=== PATIENT | male | born 1940 | race Caucasian/White ===

== ENCOUNTER → 2016-12-30 13:46 | Outpatient (CLI) | payer MEDICARE, MEDICAID, SELFPAY ==
--- NOTE | 2016-12-30 13:59 | CT_ITS ---
STUDY: CTA CHEST REASON FOR EXAM: Male, 76 years old. Shortness of breath. History of prior pulmonary embolism. RADIATION DOSAGE (If Supplied By Facility): CTDIvol = ( 19.78 ) mGy, DLP = ( 700.99 ) mGycm TECHNIQUE: The examination was performed with the intravenous administration of 100 ml of Isovue 370 contrast material. Post-processing of the angiographic images was performed, with multiplanar reformation and 3D reconstruction. Individualized dose optimization techniques were used for this CT. COMPARISON: Comparison is made with prior study dated November 02, 2015. FINDINGS: Normal enhancement of the main pulmonary artery and right and left pulmonary arteries. Normal enhancement of the bilateral peripheral pulmonary arteries. There is no demonstrated pulmonary embolism. The previously seen pulmonary emboli after resolved. There is atherosclerotic calcification of the aortic arch with tortuosity. There is no demonstrated aortic dissection. Sternal cerclage wires and vascular clips are present from a prior sternotomy and coronary artery bypass graft procedure (CABG). There are calcifications of the coronary arteries. There are visualized mediastinal lymph nodes, which are within normal size limits, and with normal morphology. Normal hilar regions. Normal visualized trachea and bronchi. The lungs are well expanded. Mild increased linear markings of the lung bases suggestive of scarring. Normal pleura. Normal chest wall structures. There are degenerative changes of thoracic spine. Normal visualized upper abdomen. CT/CTA Chest W/WO Contrast IMPRESSION: No acute abnormality is seen. Electronically Signed: Alfonso Sarah MD at 15:01 EST Tel [phone], Service support ,
== END | disposition home or self-care (01) ==
PROVIDERS: Family Provider Family Medicine Geriatric Medicine; PCP Family Medicine Geriatric Medicine; Visit Provider Family Medicine Geriatric Medicine
DX: R06.02 Shortness of breath (principal); I26.99 Other pulmonary embolism without acute cor pulmonale; R07.9 Chest pain, unspecified; R10.9 Unspecified abdominal pain
CPT/HCPCS: 71275; 36415; 80053; 82550; 83874; 84484; 85025; Q9967; A4216

== ENCOUNTER → 2017-05-19 16:02 | Outpatient (CLI) | payer MEDICARE, MEDICAID, SELFPAY ==
[2017-05-19 16:48] LABS: Absolute Lymphocyte Count 1.86 X10^3/ul (0.83-4.51); Basophil# 0.01 X10^3/uL; Basophil% 0.2 % (0-1); Eosinophil# 0.09 X10^3/uL; Eosinophils% 1.6 % (0-5); Hematocrit 37.2 % (40-54); Lymphocyte # 1.86 X10^3/ul (4.0); Lymphocyte % 33.5 % (19-41); Mean Corp Hgb Conc 34.9 g/gl (32-36); Mean Corpuscular Hgb 33.1 pg (27.0-32.0); Mean Corpuscular Volume 94.7 fL (80-94); Monocyte# 0.63 X10^3/uL; Monocyte% 11.3 % (0-10); Neutrophil # 2.96 X10^3/uL (2.7-7.7); Neutrophil % 53.2 % (47-70); Platelet Count 146 K/mm3 (150-450); RBC Distribution Width CV 12.8 % (11.6-14.6); Red Blood Count 3.93 M/mm3 (4.6-6.2); White Blood Count 5.6 K/mm3 (4.4-11.0)
[2017-05-19 16:53] LABS: POSITIVE COUNT NO; POSITIVE DIFFERENTIAL NO; POSITIVE MORPHOLOGY NO
[2017-05-19 17:17] LABS: ALB/GLOB Ratio 1.2 RATIO (0.9-2.4); AST(SGOT) 25 U/L (15-37); Alanine Aminotransfer ALT/SGPT 23 U/L (16-61); Albumin, Serum 3.7 g/dL (3.2-5.0); Alkaline Phosphatase 25 U/L (45-117); Anion Gap 10 (5-15); BUN 16 mg/dL (7-18); BUN/Creat Ratio 11.9 RATIO (10-20); Calcium,Total 8.9 mg/dL (8.5-10.1); Chloride 96 mmol/L (98-107); Creatinine, Serum 1.34 mg/dL (0.70-1.30); EST Glomerular Filtration Rate 55 mL/min (>60); Est Glom Filt Rate - Afr Amer 67 mL/min (>60); Globulin 3.2 g/dL (2.2-4.2); Glucose 88 mg/dL (74-106); Potassium 4.4 mmol/L (3.5-5.1); Protein, Total 6.9 g/dL (6.4-8.2); Sodium Level 131 mmol/L (136-145); Thyroid Stim Hormone (TSH) 1.08 uIU/mL (0.358-3.74); Uric Acid 4.7 mg/dL (3.5-7.2)
[2017-05-20 08:16] LABS: Vitamin D,25 Hydroxy 58.5 ng/mL (29.95-100.01)
== END ==
PROVIDERS: Family Provider Family Medicine Geriatric Medicine; PCP Family Medicine Geriatric Medicine; Visit Provider Family Medicine Geriatric Medicine
DX: E55.9 Vitamin D deficiency, unspecified (principal); I10 Essential (primary) hypertension; M10.9 Gout, unspecified
CPT/HCPCS: 36415; 80053; 82306; 84443; 84550; 85025

== ENCOUNTER → 2017-08-31 15:38 | Outpatient (CLI) | payer MEDICARE, MEDICAID, SELFPAY ==
--- NOTE | 2017-08-31 16:20 | RAD_ITS ---
STUDY: X-RAY CHEST REASON FOR EXAM: Male, 76 years old. Shortness of breath and chest pain. TECHNIQUE: PA and lateral views of the chest. COMPARISON: CTA of the chest, December 10, 2016. Chest, November 02, 2015. FINDINGS: There is an implantable Holter monitor overlying the left heart. There is an improved inspiratory effort. There is patchy densities in the lung bases.. Lungs appear otherwise clear. There are small bilateral pleural effusions. Sternal cerclage wires and vascular clips are present from a prior sternotomy and coronary artery bypass graft procedure (CABG). The heart is borderline enlarged. Normal mediastinum and marisabel. Normal visualized pulmonary arteries. There is atherosclerotic calcification of the aortic arch with tortuosity. Normal visualized thoracic spine. Normal visualized ribs, clavicles, and shoulders. There is no demonstrated abnormality of the visualized soft tissue structures of the upper abdomen. RAD/Chest PA and Lateral IMPRESSION: 1. Small bilateral pleural effusions. There is associated atelectasis versus infiltrate. 2. Borderline cardiomegaly with evidence of CABG procedure. Electronically Signed: Markie Goodrich DO at 20:48 EDT Tel [phone], Service support ,
[2017-08-31 17:09] LABS: Absolute Lymphocyte Count 1.93 X10^3/ul (0.83-4.51); Absolute Neutrophil Count 4.4 X10^3/uL (2.0-7.7); Basophil# 0.01 X10^3/uL; Basophil% 0.1 % (0-1); Eosinophils% 1.4 % (0-5); Hematocrit 36.1 % (40-54); Hemoglobin 12.2 g/dl (13.0-16.5); Lymphocyte # 1.93 X10^3/ul (4.0); Lymphocyte % 26.9 % (19-41); Mean Corp Hgb Conc 33.8 g/gl (32-36); Mean Corpuscular Volume 94.8 fL (80-94); Mean Platelet Vol. 9.6 fl (6.2-12.0); Monocyte% 9.7 % (0-10); Neutrophil # 4.43 X10^3/uL (2.7-7.7); Neutrophil % 61.8 % (47-70); Platelet Count 215 K/mm3 (150-450); RBC Distribution Width CV 13.9 % (11.6-14.6); RBC Distribution Width SD 44.9 fl (35.1-43.9); Red Blood Count 3.81 M/mm3 (4.6-6.2); White Blood Count 7.2 K/mm3 (4.4-11.0)
[2017-08-31 17:35] LABS: ALB/GLOB Ratio 0.9 RATIO (0.9-2.4); AST(SGOT) 16 U/L (15-37); Alanine Aminotransfer ALT/SGPT 23 U/L (16-61); Albumin, Serum 3.5 g/dL (3.2-5.0); Alkaline Phosphatase 34 U/L (45-117); Anion Gap 8 (5-15); BUN 18 mg/dL (7-18); BUN/Creat Ratio 15.4 RATIO (10-20); CPK Total, Creatine Kinase 85 U/L (39-308); Calcium,Total 9.2 mg/dL (8.5-10.1); Chloride 103 mmol/L (98-107); Creatinine, Serum 1.17 mg/dL (0.70-1.30); EST Glomerular Filtration Rate 64 mL/min (>60); Est Glom Filt Rate - Afr Amer 78 mL/min (>60); Glucose 89 mg/dL (74-106); Potassium 4.9 mmol/L (3.5-5.1); Protein, Total 7.5 g/dL (6.4-8.2); Sodium Level 140 mmol/L (136-145); Thyroid Stim Hormone (TSH) 0.86 uIU/mL (0.358-3.74)
[2017-08-31 17:41] LABS: BNP,B-Type NATRIURETIC PEPTIDE 394.4 pg/mL (0-100)
[2017-08-31 18:17] LABS: POSITIVE COUNT NO; POSITIVE DIFFERENTIAL NO; POSITIVE MORPHOLOGY NO
[2017-09-02 11:44] LABS: Myoglobin, Serum 61 ng/mL (28-72)
== END ==
PROVIDERS: Family Provider Family Medicine Geriatric Medicine; PCP Family Medicine Geriatric Medicine; Visit Provider Family Medicine Geriatric Medicine
DX: R06.02 Shortness of breath (principal); I10 Essential (primary) hypertension
CPT/HCPCS: 36415; 71046; 80053; 82550; 83874; 83880; 84443; 84484; 85025

== ENCOUNTER → 2017-09-08 13:31 | Outpatient (CLI) | payer MEDICARE, MEDICAID, SELFPAY ==
--- NOTE | 2017-09-08 13:37 | ECHOD_ITS ---
Reason For Study: SOB Procedure This was a 2D Doppler, Color Flow transthoracic echocardiogram. Technically difficult study. Unable to utilize Definity due to increased pressures. Exam performed in department. Left Ventricle Normal LV size. Moderate segmental systolic dysfunction (see wall motion). The estimated ejection fraction is 30 %. Septal motion consistent with IVCD. Infero-Basal: Hypokinetic. Basal inferoseptal: Hypokinetic. Basal anteroseptal: Hypokinetic. Mid-Anterior : Hypokinetic. Mid- Posterior: Hypokinetic. Mid-Inferior: Hypokinetic. Mid-inferoseptal : Hypokinetic. Mid- anteroseptal : Akinetic. Anterior Nakina : Hypokinetic. Inferior [place] : Hypokinetic. Lateral [place] : Hypokinetic. Septal Nakina : Akinetic. Right Ventricle Normal RV size. Normal systolic function. Atria The left atrium is mildly enlarged. Normal right atrium. No doppler evidence for ASD. Mitral Valve There is no mitral annular calcification. Normal mitral valve. Mild-Moderate (1-2+) mitral valve insufficiency. Tricuspid Valve Normal tricuspid valve. Mild tricuspid valve insufficiency. Right ventricular systolic pressure estimated to be 50 mmHg. Aortic Valve Trisinus/trileaflet aortic valve. Mild diffuse aortic valve thickening. Moderate focal aortic valve calcification. Mild aortic stenosis. Trivial aortic valve insufficiency. Pulmonic Valve The pulmonic valve is not well visualized. Great Vessels The aortic root is not well visualized. Pericardium/Pleural No pericardial effusion. MMode/2D Measurements & Calculations LVIDd: 5.0 cm IVSd: 1.3 cm LVOT diam: 2.0 cm LVIDs: 4.1 cm LVPWd: 0.85 cm LVOT area: 3.1 cm2 FS: 19.4 % Ao root diam: 3.2 cm LAV(MOD-bp): 85.7 ml Aortic Valve Planimetry: 1.1 cm2 ACS: 1.1 cm LAV(MOD-bp) Indexed: 43.9 ml/m2 LA dimension: 4.5 cm LAV(MOD-sp2): 74.8 ml LAV(MOD-sp4): 90.6 ml LA A4 area: 26.0 cm2 RA A4 area: 15.8 cm2 Time Measurements MV dec time: 0.17 sec Doppler Measurements & Calculations MV E max constantino: 122.3 cm/sec Med Peak E' Constantino: 5.2 cm/sec MV V2 max: 100.4 cm/sec MV A max constantino: 51.5 cm/sec E/E' med: 23.4 MV max P.0 mmHg MV E/A: 2.4 MV V2 mean: 54.1 cm/sec MV mean P.4 mmHg MV V2 VTI: 24.4 cm MVA(VTI): 2.4 cm2 MV P1/2t max constantino: 100.4 cm/sec Ao V2 max: 165.2 cm/sec AI max constantino: 387.9 cm/sec MV P1/2t: 85.3 msec Ao max P.0 mmHg AI max P.2 mmHg MV dec slope: 344.6 cm/sec2 Ao V2 mean: 101.4 cm/sec AI dec slope: 260.2 cm/sec2 MVA(P1/2t): 2.6 cm2 Ao mean P.0 mmHg AI P1/2t: 436.7 msec Ao V2 VTI: 31.6 cm CHRISTI(I,D): 1.9 cm2 CHRISTI(V,D): 1.7 cm2 LV V1 max: 90.6 cm/sec SV(LVOT): 59.5 ml PA V2 max: 64.2 cm/sec LV V1 max P.3 mmHg LV V1 mean P.7 mmHg LV V1 mean: 60.3 cm/sec LV V1 VTI: 19.3 cm TR max constantino: 341.0 cm/sec TR max P.5 mmHg Interpretation Summary Moderate segmental systolic dysfunction (see wall motion). The estimated ejection fraction is 30 %. Septal motion consistent with IVCD. The left atrium is mildly enlarged. Mild-Moderate (1-2+) mitral valve insufficiency. Mild tricuspid valve insufficiency. Mild aortic stenosis. Trivial aortic valve insufficiency. Right ventricular systolic pressure estimated to be 50 mmHg. Transmitral diastolic flow velocities suggest diastolic dysfunction (pseudonormal pattern). Comment: 2D echocardiographic images cannot exclude a left ventricular apical thrombus: consider further evaluation with a contrast study if clinically indicated. Ordering Physician: Jaden Farmer Referring Physician: Jaden Farmer Chi Performed By: Issa Mendez RCS
== END ==
PROVIDERS: Family Provider Family Medicine Geriatric Medicine; PCP Family Medicine Geriatric Medicine; Visit Provider Family Medicine Geriatric Medicine
DX: R06.02 Shortness of breath (principal)
CPT/HCPCS: 93306

== ENCOUNTER → 2017-09-15 16:54 | Outpatient (CLI) | payer MEDICARE, MEDICAID, SELFPAY ==
[2017-09-15 18:29] LABS: Anion Gap 8 (5-15); BUN 29 mg/dL (7-18); BUN/Creat Ratio 18.4 RATIO (10-20); Calcium,Total 9.3 mg/dL (8.5-10.1); Chloride 96 mmol/L (98-107); Creatinine, Serum 1.58 mg/dL (0.70-1.30); EST Glomerular Filtration Rate 45 mL/min (>60); Est Glom Filt Rate - Afr Amer 55 mL/min (>60); Glucose 97 mg/dL (74-106); Potassium 4.7 mmol/L (3.5-5.1); Sodium Level 130 mmol/L (136-145)
== END ==
PROVIDERS: Family Provider Family Medicine Geriatric Medicine; PCP Family Medicine Geriatric Medicine; Visit Provider Family Medicine Geriatric Medicine
DX: N18.3 Chronic kidney disease, stage 3 (moderate) (principal)
CPT/HCPCS: 36415; 80048

== ENCOUNTER → 2017-09-29 17:49 | Outpatient (CLI) | payer MEDICARE, MEDICAID, SELFPAY ==
[2017-09-29 19:09] LABS: Anion Gap 7 (5-15); BUN 19 mg/dL (7-18); BUN/Creat Ratio 12.8 RATIO (10-20); Calcium,Total 8.5 mg/dL (8.5-10.1); Chloride 105 mmol/L (98-107); Creatinine, Serum 1.48 mg/dL (0.70-1.30); EST Glomerular Filtration Rate 49 mL/min (>60); Est Glom Filt Rate - Afr Amer 59 mL/min (>60); Glucose 99 mg/dL (74-106); Potassium 3.6 mmol/L (3.5-5.1); Sodium Level 138 mmol/L (136-145)
== END ==
PROVIDERS: Family Provider Family Medicine Geriatric Medicine; PCP Family Medicine Geriatric Medicine; Visit Provider Family Medicine Geriatric Medicine
DX: I10 Essential (primary) hypertension (principal)
CPT/HCPCS: 80048

== ENCOUNTER → 2017-10-14 14:53 | Outpatient (CLI) | payer MEDICARE, MEDICAID, SELFPAY ==
[2017-10-14 17:33] LABS: Anion Gap 10 (5-15); BUN 12 mg/dL (7-18); BUN/Creat Ratio 11.2 RATIO (10-20); Calcium,Total 8.7 mg/dL (8.5-10.1); Chloride 102 mmol/L (98-107); Creatinine, Serum 1.07 mg/dL (0.70-1.30); EST Glomerular Filtration Rate 71 mL/min (>60); Est Glom Filt Rate - Afr Amer 86 mL/min (>60); Glucose 93 mg/dL (74-106); Potassium 3.7 mmol/L (3.5-5.1); Sodium Level 137 mmol/L (136-145)
== END ==
PROVIDERS: Family Provider Family Medicine Geriatric Medicine; PCP Family Medicine Geriatric Medicine; Visit Provider Family Medicine Geriatric Medicine
DX: E87.1 Hypo-osmolality and hyponatremia (principal)
CPT/HCPCS: 36415; 80048

== ENCOUNTER → 2017-11-12 13:16 | Outpatient (CLI) | payer MEDICARE, MEDICAID, SELFPAY ==
[2017-11-12 16:44] LABS: Absolute Neutrophil Count 2.5 X10^3/uL (2.0-7.7); Basophil# 0.01 X10^3/uL; Basophil% 0.3 % (0-1); Eosinophil# 0.01 X10^3/uL; Eosinophils% 0.3 % (0-5); Hematocrit 36.6 % (40-54); Hemoglobin 12.4 g/dl (13.0-16.5); Lymphocyte % 30.7 % (19-41); Mean Corp Hgb Conc 33.9 g/gl (32-36); Mean Corpuscular Volume 94.6 fL (80-94); Mean Platelet Vol. 9.7 fl (6.2-12.0); Monocyte# 0.24 X10^3/uL; Monocyte% 6.1 % (0-10); Neutrophil # 2.45 X10^3/uL (2.7-7.7); Neutrophil % 62.6 % (47-70); Platelet Count 162 K/mm3 (150-450); RBC Distribution Width CV 15.1 % (11.6-14.6); RBC Distribution Width SD 50.5 fl (35.1-43.9); Red Blood Count 3.87 M/mm3 (4.6-6.2); White Blood Count 3.9 K/mm3 (4.4-11.0)
[2017-11-12 16:58] LABS: POSITIVE COUNT NO; POSITIVE DIFFERENTIAL NO; POSITIVE MORPHOLOGY NO
[2017-11-12 17:04] LABS: Vitamin D,25 Hydroxy 28.6 ng/mL (29.95-100.01)
[2017-11-12 17:07] LABS: ALB/GLOB Ratio 1.1 RATIO (0.9-2.4); AST(SGOT) 15 U/L (15-37); Alanine Aminotransfer ALT/SGPT 20 U/L (16-61); Albumin, Serum 3.7 g/dL (3.2-5.0); Alkaline Phosphatase 29 U/L (45-117); Anion Gap 6 (5-15); BUN 26 mg/dL (7-18); BUN/Creat Ratio 20.5 RATIO (10-20); Chloride 102 mmol/L (98-107); Creatinine, Serum 1.27 mg/dL (0.70-1.30); EST Glomerular Filtration Rate 58 mL/min (>60); Est Glom Filt Rate - Afr Amer 71 mL/min (>60); Globulin 3.4 g/dL (2.2-4.2); Glucose 108 mg/dL (74-106); Potassium 4.3 mmol/L (3.5-5.1); Protein, Total 7.1 g/dL (6.4-8.2); Sodium Level 133 mmol/L (136-145); Thyroid Stim Hormone (TSH) 1.12 uIU/mL (0.358-3.74); Uric Acid 3.1 mg/dL (3.5-7.2)
== END ==
PROVIDERS: Family Provider Family Medicine Geriatric Medicine; PCP Family Medicine Geriatric Medicine; Visit Provider Family Medicine Geriatric Medicine
DX: E55.9 Vitamin D deficiency, unspecified (principal); I10 Essential (primary) hypertension; M10.9 Gout, unspecified
CPT/HCPCS: 36415; 80053; 82306; 84443; 84550; 85025

== ENCOUNTER → 2018-02-08 14:01 | Outpatient (CLI) | payer MEDICARE, MEDICAID, SELFPAY ==
--- NOTE | 2018-02-08 14:04 | RAD_ITS ---
STUDY: X-RAY CHEST REASON FOR EXAM: Male, 77 years old. Bilateral chest wall swelling and pain TECHNIQUE: PA and lateral views of the chest. COMPARISON: 08/31/2017 FINDINGS: An insertable cardiac technician projects over the left chest. Mild fibrotic scarring in the lung bases similar. Similar thickening of the bilateral costophrenic angles could represent chronic pleural fibrosis or small pleural effusions. There is borderline cardiomegaly. Sternal wires and mediastinal surgical clips compatible with prior CABG. Normal visualized pulmonary arteries. Normal visualized aortic arch and descending thoracic aorta. No acute bony process. There is no demonstrated abnormality of the visualized soft tissue structures of the upper abdomen. RAD/Chest PA and Lateral IMPRESSION: 1. 08/31/2017, stable exam. No acute cardiopulmonary process. 2. CABG. 3. Mild fibrotic scarring in the lung bases. 4. Chronic pleural fibrosis versus small pleural effusions, stable. Electronically Signed: Jude Cunha MD at 8:19 EST , Service support ,
== END ==
PROVIDERS: Family Provider Family Medicine Geriatric Medicine; PCP Family Medicine Geriatric Medicine; Referring Provider Family Medicine Geriatric Medicine; Visit Provider Family Medicine Geriatric Medicine
DX: J41.0 Simple chronic bronchitis (principal); R68.83 Chills (without fever)
CPT/HCPCS: 71046; 87633

== ENCOUNTER → 2018-02-18 15:30 | Outpatient (CLI) | payer MEDICARE, MEDICAID, SELFPAY ==
--- NOTE | 2018-02-18 16:33 | RAD_ITS ---
STUDY: X-RAY - UNILATERAL RIBS ( RIGHT ) WITH CHEST REASON FOR EXAM: Male, 77 years old. Right rib pain TECHNIQUE - RIBS: 4 view(s) of the ribs. TECHNIQUE - CHEST: Single frontal view of the chest. COMPARISON: None. FINDINGS - RIBS: Normal visualized ribs without a demonstrated fracture. FINDINGS - CHEST: There are interstitial fibrotic changes of the lungs. There is pleural fibrotic scarring of the bilateral costophrenic angle. Normal size heart. Sternal wires and mediastinal surgical clips compatible with prior CABG. Cardiac monitoring device projects over the left chest. Normal mediastinum and marisabel. Normal visualized pulmonary arteries. Normal visualized aortic arch and descending thoracic aorta. There are diffuse degenerative changes of the visualized thoracic spine. No acute bony process. There is no demonstrated abnormality of the visualized soft tissue structures of the upper abdomen. RAD/Ribs Uni Min 3V w/PA Chest IMPRESSION: RIBS: No rib fracture CHEST: Stable, nonacute x-ray examination of the chest. Electronically Signed: Jude Cunha MD at 17:28 EST , Service support ,
[2018-02-18 17:22] LABS: Absolute Lymphocyte Count 1.46 X10^3/ul (0.83-4.51); Absolute Neutrophil Count 3.8 X10^3/uL (2.0-7.7); Basophil# 0.01 X10^3/uL; Basophil% 0.2 % (0-1); Eosinophil# 0.08 X10^3/uL; Eosinophils% 1.3 % (0-5); Hematocrit 36.4 % (40-54); Hemoglobin 11.7 g/dl (13.0-16.5); Lymphocyte # 1.46 X10^3/ul (4.0); Lymphocyte % 24.1 % (19-41); Mean Corp Hgb Conc 32.1 g/gl (32-36); Mean Corpuscular Hgb 32.2 pg (27.0-32.0); Mean Corpuscular Volume 100.3 fL (80-94); Mean Platelet Vol. 8.9 fl (6.2-12.0); Monocyte# 0.71 X10^3/uL; Monocyte% 11.7 % (0-10); Neutrophil # 3.76 X10^3/uL (2.7-7.7); Neutrophil % 62.2 % (47-70); Platelet Count 259 K/mm3 (150-450); RBC Distribution Width CV 14.6 % (11.6-14.6); RBC Distribution Width SD 52.8 fl (35.1-43.9); Red Blood Count 3.63 M/mm3 (4.6-6.2); White Blood Count 6.1 K/mm3 (4.4-11.0)
[2018-02-18 17:25] LABS: POSITIVE COUNT NO; POSITIVE DIFFERENTIAL NO; POSITIVE MORPHOLOGY NO
[2018-02-18 17:28] LABS: Vitamin D,25 Hydroxy 34.4 ng/mL (29.95-100.01)
[2018-02-18 17:32] LABS: AST(SGOT) 13 U/L (15-37); Alanine Aminotransfer ALT/SGPT 35 U/L (16-61); Albumin, Serum 3.3 g/dL (3.2-5.0); Alkaline Phosphatase 40 U/L (45-117); Anion Gap 12 (5-15); BUN 20 mg/dL (7-18); BUN/Creat Ratio 17.5 RATIO (10-20); Calcium,Total 8.5 mg/dL (8.5-10.1); Chloride 97 mmol/L (98-107); Creatinine, Serum 1.14 mg/dL (0.70-1.30); EST Glomerular Filtration Rate 66 mL/min (>60); Est Glom Filt Rate - Afr Amer 80 mL/min (>60); Globulin 3.4 g/dL (2.2-4.2); Glucose 93 mg/dL (74-106); Potassium 3.7 mmol/L (3.5-5.1); Protein, Total 6.7 g/dL (6.4-8.2); Sodium Level 137 mmol/L (136-145); Thyroid Stim Hormone (TSH) 2.32 uIU/mL (0.358-3.74); Uric Acid 3.4 mg/dL (3.5-7.2)
== END ==
LOC: POLAB3 15:31 → RAD 16:32
PROVIDERS: Family Provider Family Medicine Geriatric Medicine; PCP Family Medicine Geriatric Medicine; Referring Provider Family Medicine Geriatric Medicine; Visit Provider Family Medicine Geriatric Medicine
DX: R07.81 Pleurodynia (principal); E55.9 Vitamin D deficiency, unspecified; I10 Essential (primary) hypertension; M10.9 Gout, unspecified
CPT/HCPCS: 36415; 71101; 80053; 82306; 84443; 84550; 85025

== ENCOUNTER 2018-06-10 17:39 | Inpatient (IN) | payer MEDICARE, MEDICAID, SELFPAY ==
[2018-06-10] VITALS (7 sets, daily range): BP systolic 107–146; BP diastolic 68–78; PULSE 70–75; RESP 16–19; TEMP 36.4–36.7; O2SAT 96–98; BMI 29.0; BMI 27.4; BMI 27.5
--- NOTE | 2018-06-10 18:25 | EKG12_ITS ---
Test Reason : SOB Blood Pressure : / mmHG Vent. Rate : 068 BPM Atrial Rate : 068 BPM P-R Int : 206 ms QRS Dur : 172 ms QT Int : 484 ms P-R-T Axes : 029 037 184 degrees QTc Int : 514 ms Normal sinus rhythm Left bundle branch block Abnormal ECG Confirmed by CLARK RAMIREZ, RUSSEL ([id number]), acquisitions editor NARENDRA PENNINGTON ([id number]) on 06/15/2018 1:54:19 PM Referred By: ERMA Confirmed By:RUSSEL RODAS MD
--- NOTE | 2018-06-10 18:30 | RAD_ITS ---
HISTORY: chest pain EXAM:XR Chest 1 View portable COMPARISON: 02/08/2018 FINDINGS: EKG leads in place. Interval worsening with cardiomegaly, vascular congestion, and bilateral pulmonary edema, worse on the right. Probable small bilateral pleural effusions. Nonvisualization of the left hemidiaphragm. Postsurgical changes related to previous CABG. Left chest wall loop recorder device. Atherosclerotic thoracic aorta. No pneumothorax. RAD/Chest 1 View (Portable) IMPRESSION: 1. Interval worsening with development of congestive heart failure, pulmonary edema, and probable bilateral pleural effusions. 2. Previous CABG. at 0756 Reported and signed by: Saúl Araiza MD Electronically Signed: Saúl Araiza, at 7:55 EDT Tel , Service support ,
[2018-06-10 18:48] LABS: Absolute Lymphocyte Count 0.89 X10^3/ul (0.83-4.51); Absolute Neutrophil Count 2.5 X10^3/uL (2.0-7.7); Basophil# 0.01 X10^3/uL; Basophil% 0.3 % (0-1); Eosinophil# 0.08 X10^3/uL; Eosinophils% 2.1 % (0-5); Hematocrit 32.3 % (40-54); Hemoglobin 11.3 g/dl (13.0-16.5); Lymphocyte # 0.89 X10^3/ul (4.0); Lymphocyte % 22.9 % (19-41); Mean Corpuscular Volume 94.4 fL (80-94); Mean Platelet Vol. 9.6 fl (6.2-12.0); Monocyte# 0.36 X10^3/uL; Monocyte% 9.3 % (0-10); Neutrophil # 2.53 X10^3/uL (2.7-7.7); Neutrophil % 65.1 % (47-70); Platelet Count 127 K/mm3 (150-450); RBC Distribution Width CV 15.6 % (11.6-14.6); RBC Distribution Width SD 53.2 fl (35.1-43.9); Red Blood Count 3.42 M/mm3 (4.6-6.2); White Blood Count 3.9 K/mm3 (4.4-11.0)
[2018-06-10 18:50] LABS: POSITIVE COUNT NO; POSITIVE DIFFERENTIAL NO; POSITIVE MORPHOLOGY NO
[2018-06-10 19:01] LABS: Anion Gap 5 (5-15); BUN 21 mg/dL (7-18); BUN/Creat Ratio 17.5 RATIO (10-20); Calcium,Total 8.6 mg/dL (8.5-10.1); Chloride 95 mmol/L (98-107); EST Glomerular Filtration Rate 62 mL/min (>60); Est Glom Filt Rate - Afr Amer 75 mL/min (>60); Glucose 103 mg/dL (74-106); Potassium 4.9 mmol/L (3.5-5.1); Sodium Level 126 mmol/L (136-145)
[2018-06-10 19:16] LABS: Bacteria 0 SEEN /hpf (None Seen); Mucous, Urine 0 SEEN /hpf (<or=2+); Red Blood Cells-Urine 0 SEEN /hpf (0-5)
[2018-06-10 19:20] LABS: Color, Urine Yellow (Yellow); Glucose, Dipstick Normal (Normal); Ketone-Dipstick 5 mg/dl (Negative); Leukocyte Esterase-Dipstick 25 /ul (Negative); Nitrite-Dipstick Negative (Negative); Occult Blood-Urine Negative /ul (Negative); Protein-Dipstick 30 mg/dl (Negative); Urine Clarity Sl. Cloudy (Clear); Urine Urobilinogen 8 mg/dl (Normal)
[2018-06-10 19:21] LABS: Urine Bilirubin Dipstick 3 mg/dL (Negative)
[2018-06-10 19:26] LABS: Amorphous Sediment 1+ URATE; Squamous Epithelial Cells - UA 0-5 SEEN /hpf (0-5); White Blood Cells 0-5 SEEN /hpf (0-5)
[2018-06-10 19:32] LABS: BNP,B-Type NATRIURETIC PEPTIDE > 5000.0 pg/mL (0-100)
[2018-06-10] MEDS: Furosemide 40 MG/4 ML Vial IV (20:48)
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
--- NOTE | 2018-06-10 21:10 | ED.VISSUMM ---
- ER Visit Summary Date of Service: 06/10/18 Chief Complaint: Shortness of breath History of Present Illness: The patient is a 77 M with shortness of breath which has been getting worse over the past month. It is worse with exertion. He reports generalized weakness. He feels cold. He is not eating or drinking much. He has been complaining of prostate pain. He saw his urologist today, Dr. Stoddard who said everything was fine, but he noted that the patient was edematous and seemed volume overloaded. He was worried about CHF. The patient does have a history of chronic kidney disease. He also has a history of stroke and coronary disease. He does take Eliquis for history of PE. Patient is denying chest pain. Denies fevers. Denies cough or sputum. Denies any GI symptoms. Physical Examination: Afebrile and vital signs unremarkable. Regular rate and rhythm. Diminished lung sounds in all chan. Skin slightly pale. Peripheral edema noted, symmetric. Legs nontender. EKG showed sinus rhythm with a rate of 68. Left bundle branch block pattern is old. Troponin normal. BNP over 5000. White count 3.9 and hemoglobin 11.3. Platelets 127. BUN 21. Sodium 126 and chloride 95. Chest x-ray shows what appears to be congestion and chronic changes. Official read is pending. Emergency Department Course and Treatment: Patient's work-up is consistent with a CHF exacerbation. He has severe symptoms and is not eating or drinking much at home. He was treated with Lasix. Patient is not eating or drinking much. His mucous membranes are dry, and he is very fatigued. I believe he will need diuresis and close monitoring. I called the hospitalist to admit. Treatment Plan: As above Disposition: Admission Impression: 1. CHF This note was generated with [employer] dictation software. It may contain incorrect words, spelling, and punctuation that were not noted in review of the chart prior to signing ED Disposition - Plan for ED Patient: Referrals: Jaden Farmer Chi, MD [Primary Care Provider] -
--- NOTE | 2018-06-10 21:14 | ED.DCSUM_ITS ---
- ER Visit Summary Date of Service: 06/10/18 Chief Complaint: Shortness of breath History of Present Illness: The patient is a 77 M with shortness of breath which has been getting worse over the past month. It is worse with exertion. He reports generalized weakness. He feels cold. He is not eating or drinking much. He has been complaining of prostate pain. He saw his urologist today, Dr. Stoddard who said everything was fine, but he noted that the patient was edematous and seemed volume overloaded. He was worried about CHF. The patient does have a history of chronic kidney disease. He also has a history of stroke and coronary disease. He does take Eliquis for history of PE. Patient is deny ing chest pain. Denies fevers. Denies cough or sputum. Denies any GI symptoms. Physical Examination: Afebrile and vital signs unremarkable. Regular rate and rhythm. Diminished lung sounds in all chan. Skin slightly pale. Peripheral edema noted, symmetric. Legs nontender. EKG showed sinus rhythm with a rate of 68. Left bundle branch block pattern is old. Troponin normal. BNP over 5000. White count 3.9 and hemoglobin 11.3. Platelets 127. BUN 21. Sodium 126 and chloride 95. Chest x-ray shows what appears to be congestion and chronic changes. Official read is pending. Emergency Department Course and Treatment: Patient's work-up is consistent with a CHF exacerbation. He has severe symptoms and is not eating or drinking much at home. He was treated with Lasix. Patient is not eating or drinking much. His mucous membranes are dry, and he is very fatigued. I believe he will need diuresis and close monitoring. I called the hospitalist to admit. Treatment Plan: As above Disposition: Admission Impression: 1. CHF This note was generated with [employer] dictation software. It may contain incorrect words, spelling, and punctuation that were not noted in review of the chart prior to signing ED Disposition - Plan for ED Patient: Referrals: Jaden Farmer Chi, MD [Primary Care Provider] -
[2018-06-11] VITALS (15 sets, daily range): BP systolic 119–138; BP diastolic 61–78; PULSE 67–89; RESP 16–20; TEMP 36.3–36.8; O2SAT 93–97
[2018-06-11] MEDS: SACUBITRIL/VALSARTAN 97-103 MG TABLET 1 EACH PO ×3 (00:01→22:27)
[2018-06-11] MEDS: APIXABAN 5 MG TABLET PO ×3 (00:01→22:27)
[2018-06-11] MEDS: Pravastatin 80 MG Tablet PO ×2 (00:02→22:28)
[2018-06-11] MEDS: HYDROcodone Bitartrate/Apap 5/325 Tablet PO ×4 (00:06→18:22)
[2018-06-11] MEDS: Oxybutynin 5 MG Tablet PO ×4 (05:37→22:28)
[2018-06-11 06:07] LABS: Anion Gap 11 (5-15); BUN 20 mg/dL (7-18); BUN/Creat Ratio 16.4 RATIO (10-20); Calcium,Total 8.7 mg/dL (8.5-10.1); Chloride 95 mmol/L (98-107); Creatinine, Serum 1.22 mg/dL (0.70-1.30); EST Glomerular Filtration Rate 61 mL/min (>60); Est Glom Filt Rate - Afr Amer 74 mL/min (>60); Estimated Creatinine Clearance 49.06 ml/min; Glucose 90 mg/dL (74-106); Potassium 4.1 mmol/L (3.5-5.1); Sodium Level 129 mmol/L (136-145)
--- NOTE | 2018-06-11 10:01 | PCM.PN.HOSP ---
Patient Problems: Active and Suspected Problems (Last Reviewed 06/11/18 @ 03:03 by Feng Lott MD) Acute exacerbation of CHF (congestive heart failure) (Acute) Subjective: Patient seen and examined. He was admitted yesterday with a complaint of shortness of breath and generalized edema and was found to have BNP of more than 5000. He also had an associated weight gain of around 8 pounds for the last 10 days. He has been managed for acute exacerbation of systolic heart failure. Patient feels much better today. Shortness of breath has improved. He denies any lightheadedness or dizziness or palpitations, chest pain, diarrhea vomiting. He does complain of swelling in his lower extremities bilaterally. He has a known EF of 30% from August 2017. Labs and vitals reviewed. Vitals/I&O's: Vital Signs Temp Pulse Resp BP Pulse Ox 97.8 F 79 20 H 137/78 H 96 06/11/18 08:25 06/11/18 08:25 06/11/18 08:25 06/11/18 08:25 06/11/18 08:25 Oxygen Delivery Method Room Air Weight: 177 lb 7.554 oz Body Mass Index (BMI) 27.4 Intake and Output for Last 24 Hours 06/09/18 06/10/18 06/11/18 23:59 23:59 23:59 Intake Total 120 / 120 120 / 120 Output Total 725 / 725 1000 / 1000 Balance -605 / -605 -880 / -880 General: Alert, Oriented x3, Cooperative, No apparent distress HEENT: Atraumatic, PERRLA, EOMI, Normocephalic, - - Hard of hearing Oral: Moist Mucosa Neck: Supple, No JVD, Negative Carotid Bruits Lungs: - - Decreased breath sounds bibasilarly with no wheezing or crackles. Cardiovascular: Regular rate, Regular Rhythm, Normal S1, Normal S2, No murmurs Abdomen: Bowel Sounds Present, Soft, Non Tender, Non-Distended, No Hepato-splenomegaly Extremities: No clubbing, No cyanosis, Capillary Refill Less than 3 Seconds, - - Bilateral 2+ lower extremity pitting pedal edema Skin: No rashes, No breakdown Musculoskeletal: No Tenderness to Palpation of Joints or Extremities Lymphatic: No Cervical, Supraclavicular, or Inguinal Adenopathy Neurological: Cranial nerves II-XII grossly intact, Neuro grossly intact, Motor Exam 5/5 strength throughout Psych/Mental Status: Normal Affect, Appropriate, Alert and oriented to time, place, person, mood and affect Laboratory Results 06/10/18 18:33: WBC 3.9 L, RBC 3.42 L, Hgb 11.3 L, Hct 32.3 L, MCV 94.4 H, MCH 33.0 H, MCHC 35.0, RDW 15.6 H, RDW Differential 53.2 H, Plt Count 127 L, MPV 9.6, Immature Gran % (Auto) 0.300, Neut % (Auto) 65.1, Lymph % (Auto) 22.9, [place] % (Auto) 9.3, Eos % (Auto) 2.1, Baso % (Auto) 0.3, Absolute Neuts (auto) 2.5, Absolute Lymphs (auto) 0.89, Total Counted Not Reportable 06/10/18 18:33: Sodium 126 L, Potassium 4.9, Chloride 95 L, Carbon Dioxide 26.0, Anion Gap 5, BUN 21 H, Creatinine 1.20, Estim Creat Clear Calc 48.20, Est GFR (MDRD) Af Amer 75, Est GFR (MDRD) Non-Af 62, BUN/Creatinine Ratio 17.5, Glucose 103, Calcium 8.6, Troponin I 0.022 06/10/18 18:33: B-Natriuretic Peptide > 5000.0 H 06/10/18 19:11: Urine Color Yellow, Urine Clarity Sl. Cloudy, Urine pH 6.0, Ur Specific [place] 1.020, Urine Protein 30 H, Urine Glucose (UA) Normal, Urine Ketones 5 H, Urine Occult Blood Negative, Urine Nitrite Negative, Urine Bilirubin 3 H, Urine Urobilinogen 8 H, Ur Leukocyte Esterase 25 H, Urine RBC 0 SEEN, Urine WBC 0-5 SEEN, Ur Squamous Epith Cells 0-5 SEEN, Amorphous Sediment 1+ URATE, Urine Bacteria 0 SEEN, Urine Mucus 0 SEEN 06/11/18 05:08: Sodium 129 L, Potassium 4.1, Chloride 95 L, Carbon Dioxide 23.0, Anion Gap 11, BUN 20 H, Creatinine 1.22, Estim Creat Clear Calc 49.06, Est GFR (MDRD) Af Amer 74, Est GFR (MDRD) Non-Af 61, BUN/Creatinine Ratio 16.4, Glucose 90, Calcium 8.7 Diagnostic Data Chest X-Ray 06/10/18 18:30 IMPRESSION: 1. Interval worsening with development of congestive heart failure, pulmonary edema, and probable bilateral pleural effusions. 2. Previous CABG. at 0756 Reported and signed by: Saúl Araiza MD Electronically Signed: Saúl Araiza, at 7:55 EDT Tel , Service support , Current Medications Acetaminophen (Tylenol) 650 mg PO Q6H PRN PRN PRN Reason: Mild pain 1-3/Temp > 100.7 F Hydrocodone Bitart/Acetaminophen ([place] 5mg-325mg) 1 tablet PO Q6 [facility] Apixaban (Eliquis) 5 mg PO BID [facility] Last Admin: 06/11/18 00:01 Dose: 5 mg Dextrose (D50w Syringe) 0 gm IV X1 PRN; Protocol PRN Reason: Hypoglycemia Famotidine (Pepcid) 40 mg PO DAILY [facility] Finasteride (Proscar) 5 mg PO DAILY [facility] Furosemide (Lasix) 40 mg IV BIDLX [facility] Glucagon () 1 mg IM .X1 PRN PRN Reason: Hypoglycemia Metoprolol Tartrate (Lopressor (Beta Thomas)) 50 mg PO BID [facility] Last Admin: 06/11/18 00:00 Dose: 50 mg Oxybutynin Chloride (Ditropan) 5 mg PO TID [facility] Last Admin: 06/11/18 05:37 Dose: 5 mg Pantoprazole Sodium (Protonix) 40 mg PO DAILY [facility] Potassium Chloride (K-Dur) 20 meq PO DAILYCM [facility] Pravastatin Sodium (Pravachol) 80 mg PO QHS [facility] Last Admin: 06/11/18 00:02 Dose: 80 mg Sodium Chloride () 5 - 15 ml IV UD PRN PRN Reason: SALINE FLUSH Tamsulosin HCl (Flomax) 0.4 mg PO DAILY [facility] Medical Necessity - Tobacco Use Smoking Status: Former smoker Tobacco Use: Cigars Assessment/Plan All Active Problems (Last Reviewed 06/11/18 @ 03:03 by Feng Lott MD) Acute exacerbation of CHF (congestive heart failure) (Acute) Bilateral pulmonary embolism (Acute) 77-year-old male admitted with a complaint of shortness of breath was found to have acute exacerbation of heart failure with reduced ejection fraction. 1. Acute exacerbation of HFrEF EF is 30% form echo in 2018, with septal motion consistent with IVCD BNP was >5000 on IV lasix 40mg bid; fluid restriction to 1500cc daily will check 2D echo on entresto and metoprolol will check TSH urine output of 1.7L since admission, with cumulative negative balance of 1.485L since admission. 2. HYponatremia Na was 126 on admission; is 129 today likely due to hypervolemic hyponatremia from fluid overload with CHF exacerbation expect to improve with diuresis 3. Hypertension: controlled for age. On metoprolol and Entresto. 4. Hyperlipidemia: On statin 5. Gout: On febuxostat. 6. BPH: On Flomax 7. History of PE and atrial flutter: On Eliquis. 8. Depression: On antidepressant- Vortioxetine 9. COPD: stable. 10. History of weight loss of unclear etiology: States he lost significant weight and had been worked up for prostate cancer but this was negative. Patient thinks that he has started gaining weight recently with good nutrition. 11. Pancytopenia: White cell count was 3.9 on admission with hemoglobin of 11.3 and platelets of 127. Thrombocytopenia and anemia chronic. Patient currently stable. Will monitor. DVT prophylaxis: On Eliquis Code Visit Inpatient E&M: 76494 Subs Hosp L3
--- NOTE | 2018-06-11 10:15 | PN_ITS ---
Patient Problems: Active and Suspected Problems (Last Reviewed 06/11/18 @ 03:03 by Feng Lott MD) Acute exacerbation of CHF (congestive heart failure) (Acute) Subjective: Patient seen and examined. He was admitted yesterday with a complaint of shortness of breath and generalized edema and was found to have BNP of more than 5000. He also had an associated weight gain of around 8 pounds for the last 10 days. He has been managed for acute exacerbation of systolic heart failure. Patient feels much better today. Shortness of breath has improved. He denies any lightheadedness or dizziness or palpitations, chest pain, diarrhea vomiting. He does complain of swelling in his lower extremities bilaterally. He has a known EF of 30% from August 2017. Labs and vitals reviewed. Vitals/I&O's: Vital Signs Temp Pulse Resp BP Pulse Ox 97.8 F 79 20 H 137/78 H 96 06/11/18 08:25 06/11/18 08:25 06/11/18 08:25 06/11/18 08:25 06/11/18 08:25 Oxygen Delivery Method Room Air Weight: 177 lb 7.554 oz Body Mass Index (BMI) 27.4 Intake and Output for Last 24 Hours 06/09/18 06/10/18 06/11/18 23:59 23:59 23:59 Intake Total 120 / 120 120 / 120 Output Total 725 / 725 1000 / 1000 Balance -605 / -605 -880 / -880 General: Alert, Oriented x3, Cooperative, No apparent distress HEENT: Atraumatic, PERRLA, EOMI, Normocephalic, - - Hard of hearing Oral: Moist Mucosa Neck: Supple, No JVD, Negative Carotid Bruits Lungs: - - Decreased breath sounds bibasilarly with no wheezing or crackles. Cardiovascular: Regular rate, Regular Rhythm, Normal S1, Normal S2, No murmurs Abdomen: Bowel Sounds Present, Soft, Non Tender, Non-Distended, No Hepato- splenomegaly Extremities: No clubbing, No cyanosis, Capillary Refill Less than 3 Seconds, - - Bilateral 2+ lower extremity pitting pedal edema Skin: No rashes, No breakdown Musculoskeletal: No Tenderness to Palpation of Joints or Extremities Lymphatic: No Cervical, Supraclavicular, or Inguinal Adenopathy Neurological: Cranial nerves II-XII grossly intact, Neuro grossly intact, Motor Exam 5/5 strength throughout Psych/Mental Status: Normal Affect, Appropriate, Alert and oriented to time, place, person, mood and affect Laboratory Results 06/10/18 18:33: WBC 3.9 L, RBC 3.42 L, Hgb 11.3 L, Hct 32.3 L, MCV 94.4 H, MCH 33.0 H, MCHC 35.0, RDW 15.6 H, RDW Differential 53.2 H, Plt Count 127 L, MPV 9. 6, Immature Gran % (Auto) 0.300, Neut % (Auto) 65.1, Lymph % (Auto) 22.9, [place] % (Auto) 9.3, Eos % (Auto) 2.1, Baso % (Auto) 0.3, Absolute Neuts (auto) 2.5, Absolute Lymphs (auto) 0.89, Total Counted Not Reportable 06/10/18 18:33: Sodium 126 L, Potassium 4.9, Chloride 95 L, Carbon Dioxide 26.0, Anion Gap 5, BUN 21 H, Creatinine 1.20, Estim Creat Clear Calc 48.20, Est GFR (MDRD) Af Amer 75, Est GFR (MDRD) Non-Af 62, BUN/Creatinine Ratio 17.5, Glucose 103, Calcium 8.6, Troponin I 0.022 06/10/18 18:33: B-Natriuretic Peptide > 5000.0 H 06/10/18 19:11: Urine Color Yellow, Urine Clarity Sl. Cloudy, Urine pH 6.0, Ur Specific [place] 1.020, Urine Protein 30 H, Urine Glucose (UA) Normal, Urine Ketones 5 H, Urine Occult Blood Negative, Urine Nitrite Negative, Urine Bilirubin 3 H, Urine Urobilinogen 8 H, Ur Leukocyte Esterase 25 H, Urine RBC 0 SEEN, Urine WBC 0-5 SEEN, Ur Squamous Epith Cells 0-5 SEEN, Amorphous Sediment 1+ URATE, Urine Bacteria 0 SEEN, Urine Mucus 0 SEEN 06/11/18 05:08: Sodium 129 L, Potassium 4.1, Chloride 95 L, Carbon Dioxide 23.0, Anion Gap 11, BUN 20 H, Creatinine 1.22, Estim Creat Clear Calc 49.06, Est GFR (MDRD) Af Amer 74, Est GFR (MDRD) Non-Af 61, BUN/Creatinine Ratio 16.4, Glucose 90, Calcium 8.7 Diagnostic Data Chest X-Ray 06/10/18 18:30 IMPRESSION: 1. Interval worsening with development of congestive heart failure, pulmonary edema, and probable bilateral pleural effusions. 2. Previous CABG. at 0756 Reported and signed by: Saúl Araiza MD Electronically Signed: Saúl Araiza, at 7:55 EDT Tel , Service support , Current Medications Acetaminophen (Tylenol) 650 mg PO Q6H PRN PRN PRN Reason: Mild pain 1-3/Temp > 100.7 F Hydrocodone Bitart/Acetaminophen ([place] 5mg-325mg) 1 tablet PO Q6 PANCHO Apixaban (Eliquis) 5 mg PO BID [facility] Last Admin: 06/11/18 00:01 Dose: 5 mg Dextrose (D50w Syringe) 0 gm IV X1 PRN; Protocol PRN Reason: Hypoglycemia Famotidine (Pepcid) 40 mg PO DAILY [facility] Finasteride (Proscar) 5 mg PO DAILY [facility] Furosemide (Lasix) 40 mg IV BIDLX [facility] Glucagon () 1 mg IM .X1 PRN PRN Reason: Hypoglycemia Metoprolol Tartrate (Lopressor (Beta Thomas)) 50 mg PO BID [facility] Last Admin: 06/11/18 00:00 Dose: 50 mg Oxybutynin Chloride (Ditropan) 5 mg PO TID [facility] Last Admin: 06/11/18 05:37 Dose: 5 mg Pantoprazole Sodium (Protonix) 40 mg PO DAILY [facility] Potassium Chloride (K-Dur) 20 meq PO DAILYCM [facility] Pravastatin Sodium (Pravachol) 80 mg PO QHS [facility] Last Admin: 06/11/18 00:02 Dose: 80 mg Sodium Chloride () 5 - 15 ml IV UD PRN PRN Reason: SALINE FLUSH Tamsulosin HCl (Flomax) 0.4 mg PO DAILY [facility] Medical Necessity - Tobacco Use Smoking Status: Former smoker Tobacco Use: Cigars Assessment/Plan All Active Problems (Last Reviewed 06/11/18 @ 03:03 by Feng Lott MD) Acute exacerbation of CHF (congestive heart failure) (Acute) Bilateral pulmonary embolism (Acute) 77-year-old male admitted with a complaint of shortness of breath was found to have acute exacerbation of heart failure with reduced ejection fraction. 1. Acute exacerbation of HFrEF * EF is 30% form echo in 2018, with septal motion consistent with IVCD * BNP was >5000 * on IV lasix 40mg bid; fluid restriction to 1500cc daily * will check 2D echo * on entresto and metoprolol * will check TSH * urine output of 1.7L since admission, with cumulative negative balance of 1.485L since admission. * 2. HYponatremia * Na was 126 on admission; is 129 today * likely due to hypervolemic hyponatremia from fluid overload with CHF exacerbation * expect to improve with diuresis * 3. Hypertension: controlled for age. On metoprolol and Entresto. 4. Hyperlipidemia: On statin 5. Gout: On febuxostat. 6. BPH: On Flomax 7. History of PE and atrial flutter: On Eliquis. 8. Depression: On antidepressant- Vortioxetine 9. COPD: stable. 10. History of weight loss of unclear etiology: * States he lost significant weight and had been worked up for prostate cancer but this was negative. * Patient thinks that he has started gaining weight recently with good nutrition. 11. Pancytopenia: * White cell count was 3.9 on admission with hemoglobin of 11.3 and platelets of 127. * Thrombocytopenia and anemia chronic. * Patient currently stable. Will monitor. * DVT prophylaxis: On Eliquis Code Visit Inpatient E&M: 69915 Subs Hosp L3
--- NOTE | 2018-06-11 10:54 | CASEMGMT ---
Addendum entered by Yaniv Alvarez 06/11/18 11:28: Per Delmy, [facility]- pt is accepted for Home Health on dc with anticipated dc date Thu or Thursday. Green Sheet is on front of chart. Facundo VELOZ Original Note: RN CM Assessment Presentation: CHF exacerbation, shortness of breath Intro role of CM and purpose of RN CM assessment to patient in room. Pt is awake, alert, but very [place]. Amy Cox is in room and able to participate in assessment as she assists with his caretaking. Demographics, PCP and Pharmacy verified. Amy lives with patient, but states she is often not home as she babysits her granddaughter. PCP: Dr. Farmer Specialists: Dr. Escobar, Dr. Stoddard, urology, Dr. Can, pain mgmt Preferred Pharmacy: [facility] Insurance: [facility] Prescription Benefit: yes LNOK: brooke valenzuela Kurt Living Arrangements: pt lives in mobile home, 4 steps into home. Pt independent with ADL, but exwife assists if needed. Was using cane, but has walker at home Brooke states he will need to use more at home. Transportation: exwife drives DME: walker, wheelchair, cane and CPAP HHC: none. If needed, [facility] preference, but if they are unable, any agency ok. Patient DC goals: Home DC PLAN: Home w/may benefit from Home Health. (call to Delmy @ [facility], message left to see if they go to [facility].) Facundo VELOZ
[2018-06-11] MEDS: Metoprolol Tartrate 50 MG Tablet PO ×3 (10:59→22:28)
[2018-06-11] MEDS: Tamsulosin HCl 0.4 MG Capsule PO (10:59)
[2018-06-11] MEDS: Furosemide 40 MG/4 ML Vial IV ×2 (10:59→18:22)
[2018-06-11] MEDS: Finasteride 5 MG Tablet PO (11:00)
[2018-06-11] MEDS: Pantoprazole Sodium 40 MG Tablet PO (11:00)
[2018-06-11] MEDS: Famotidine 20 MG Tablet 40 MG PO (11:00)
[2018-06-11] MEDS: VORTIOXETINE HYDROBROMIDE 10 MG TABLET 20 MG PO (11:00)
[2018-06-11] MEDS: Febuxostat 40 MG TABLET PO (11:01)
--- NOTE | 2018-06-11 12:15 | NURSING ---
This RN taking over care at this time
[2018-06-11] MEDS: Acetaminophen 325 MG Tablet 650 MG PO (15:47)
[2018-06-11] MEDS: 0.9% NaCl Peripheral Flush Adult/Peds IV (18:22)
[2018-06-12] VITALS (12 sets, daily range): BP systolic 105–145; BP diastolic 69–81; PULSE 69–83; RESP 12–20; TEMP 36.6–36.8; O2SAT 89–96
[2018-06-12] MEDS: HYDROcodone Bitartrate/Apap 5/325 Tablet PO ×5 (00:19→23:14)
[2018-06-12] MEDS: Oxybutynin 5 MG Tablet PO ×3 (05:26→21:33)
[2018-06-12 06:43] LABS: Absolute Lymphocyte Count 0.99 X10^3/ul (0.83-4.51); Absolute Neutrophil Count 2.4 X10^3/uL (2.0-7.7); Basophil# 0.01 X10^3/uL; Basophil% 0.3 % (0-1); Eosinophil# 0.08 X10^3/uL; Hematocrit 31.2 % (40-54); Hemoglobin 10.8 g/dl (13.0-16.5); Lymphocyte # 0.99 X10^3/ul (4.0); Lymphocyte % 25.3 % (19-41); Mean Corp Hgb Conc 34.6 g/gl (32-36); Mean Corpuscular Hgb 32.7 pg (27.0-32.0); Mean Corpuscular Volume 94.5 fL (80-94); Mean Platelet Vol. 9.2 fl (6.2-12.0); Monocyte# 0.42 X10^3/uL; Monocyte% 10.7 % (0-10); Neutrophil # 2.41 X10^3/uL (2.7-7.7); Neutrophil % 61.7 % (47-70); Platelet Count 108 K/mm3 (150-450); RBC Distribution Width CV 15.5 % (11.6-14.6); RBC Distribution Width SD 52.5 fl (35.1-43.9); White Blood Count 3.9 K/mm3 (4.4-11.0)
[2018-06-12 06:55] LABS: POSITIVE COUNT NO; POSITIVE DIFFERENTIAL NO; POSITIVE MORPHOLOGY NO
[2018-06-12 07:04] LABS: BUN 15 mg/dL (7-18); Creatinine, Serum 1.16 mg/dL (0.70-1.30); Estimated Creatinine Clearance 51.59 ml/min; Glucose 85 mg/dL (74-106)
[2018-06-12 07:05] LABS: Anion Gap 11 (5-15); BUN/Creat Ratio 12.9 RATIO (10-20); Calcium,Total 8.5 mg/dL (8.5-10.1); Chloride 91 mmol/L (98-107); EST Glomerular Filtration Rate 65 mL/min (>60); Est Glom Filt Rate - Afr Amer 78 mL/min (>60); Potassium 3.5 mmol/L (3.5-5.1); Sodium Level 129 mmol/L (136-145)
[2018-06-12] MEDS: Pantoprazole Sodium 40 MG Tablet PO (09:20)
[2018-06-12] MEDS: Finasteride 5 MG Tablet PO (09:20)
[2018-06-12] MEDS: VORTIOXETINE HYDROBROMIDE 10 MG TABLET 20 MG PO (09:20)
[2018-06-12] MEDS: Febuxostat 40 MG TABLET PO (09:20)
[2018-06-12] MEDS: Famotidine 20 MG Tablet 40 MG PO (09:20)
[2018-06-12] MEDS: Metoprolol Tartrate 50 MG Tablet PO ×2 (09:20→21:33)
[2018-06-12] MEDS: Furosemide 40 MG/4 ML Vial IV ×2 (09:21→16:56)
[2018-06-12] MEDS: APIXABAN 5 MG TABLET PO ×2 (09:21→21:33)
[2018-06-12] MEDS: SACUBITRIL/VALSARTAN 97-103 MG TABLET 1 EACH PO ×2 (09:21→21:33)
[2018-06-12] MEDS: Tamsulosin HCl 0.4 MG Capsule PO (09:21)
[2018-06-12] MEDS: 0.9% NaCl Peripheral Flush Adult/Peds IV ×2 (09:21→16:56)
--- NOTE | 2018-06-12 11:07 | PCM.PN.HOSP ---
Patient Problems: Active and Suspected Problems (Last Reviewed 06/11/18 @ 03:03 by Feng Lott MD) Acute exacerbation of CHF (congestive heart failure) (Acute) Subjective: Patient seen and examined. He feels well today and has no complaints. Review of systems otherwise negative. Labs and vitals reviewed. Vitals/I&O's: Vital Signs Temp Pulse Resp BP Pulse Ox 98.0 F 82 14 145/81 H 94 06/12/18 09:20 06/12/18 09:20 06/12/18 09:20 06/12/18 09:20 06/12/18 09:20 Oxygen Delivery Method Room Air Weight: 169 lb 15.622 oz Body Mass Index (BMI) 27.4 Intake and Output for Last 24 Hours 06/10/18 06/11/18 06/12/18 23:59 23:59 23:59 Intake Total 120 / 120 480 / 480 120 / 120 Output Total 725 / 725 3050 / 3050 650 / 650 Balance -605 / -605 -2570 / -2570 -530 / -530 General: Alert, Oriented x3, Cooperative, No apparent distress HEENT: Atraumatic, PERRLA, EOMI, Normocephalic, - - Hard of hearing Oral: Moist Mucosa Neck: Supple, No JVD, Negative Carotid Bruits Lungs: - - Decreased breath sounds bibasilarly with no wheezing or crackles. Cardiovascular: Regular rate, Regular Rhythm, Normal S1, Normal S2, No murmurs Abdomen: Bowel Sounds Present, Soft, Non Tender, Non-Distended, No Hepato-splenomegaly Extremities: No clubbing, No cyanosis, Capillary Refill Less than 3 Seconds, - - Bilateral 1+ lower extremity pitting pedal edema Skin: No rashes, No breakdown Musculoskeletal: No Tenderness to Palpation of Joints or Extremities Lymphatic: No Cervical, Supraclavicular, or Inguinal Adenopathy Neurological: Cranial nerves II-XII grossly intact, Neuro grossly intact, Motor Exam 5/5 strength throughout Psych/Mental Status: Normal Affect, Appropriate, Alert and oriented to time, place, person, mood and affect Laboratory Results 06/12/18 05:55: WBC 3.9 L, RBC 3.30 L, Hgb 10.8 L, Hct 31.2 L, MCV 94.5 H, MCH 32.7 H, MCHC 34.6, RDW 15.5 H, RDW Differential 52.5 H, Plt Count 108 L, MPV 9.2, Immature Gran % (Auto) 0.000, Neut % (Auto) 61.7, Lymph % (Auto) 25.3, [place] % (Auto) 10.7 H, Eos % (Auto) 2.0, Baso % (Auto) 0.3, Absolute Neuts (auto) 2.4, Absolute Lymphs (auto) 0.99, Total Counted Not Reportable 06/12/18 05:55: Sodium 129 L, Potassium 3.5, Chloride 91 L, Carbon Dioxide 27.0, Anion Gap 11, BUN 15, Creatinine 1.16, Estim Creat Clear Calc 51.59, Est GFR (MDRD) Af Amer 78, Est GFR (MDRD) Non-Af 65, BUN/Creatinine Ratio 12.9, Glucose 85, Calcium 8.5 Diagnostic Data Chest X-Ray 06/10/18 18:30 IMPRESSION: 1. Interval worsening with development of congestive heart failure, pulmonary edema, and probable bilateral pleural effusions. 2. Previous CABG. at 0756 Reported and signed by: Saúl Araiza MD Electronically Signed: Saúl Araiza, at 7:55 EDT Tel , Service support , Current Medications Acetaminophen (Tylenol) 650 mg PO Q6H PRN PRN PRN Reason: Mild pain 1-3/Temp > 100.7 F Last Admin: 06/11/18 15:47 Dose: 650 mg Hydrocodone Bitart/Acetaminophen ([place] 5mg-325mg) 1 tablet PO Q6 [facility] Last Admin: 06/12/18 05:26 Dose: 1 tablet Apixaban (Eliquis) 5 mg PO BID [facility] Last Admin: 06/12/18 09:21 Dose: 5 mg Dextrose (D50w Syringe) 0 gm IV X1 PRN; Protocol PRN Reason: Hypoglycemia Famotidine (Pepcid) 40 mg PO DAILY [facility] Last Admin: 06/12/18 09:20 Dose: 40 mg Finasteride (Proscar) 5 mg PO DAILY [facility] Last Admin: 06/12/18 09:20 Dose: 5 mg Furosemide (Lasix) 40 mg IV BIDLX [facility] Last Admin: 06/12/18 09:21 Dose: 40 mg Glucagon () 1 mg IM .X1 PRN PRN Reason: Hypoglycemia Metoprolol Tartrate (Lopressor (Beta Thomas)) 50 mg PO BID [facility] Last Admin: 06/12/18 09:20 Dose: 50 mg Oxybutynin Chloride (Ditropan) 5 mg PO TID [facility] Last Admin: 06/12/18 05:26 Dose: 5 mg Pantoprazole Sodium (Protonix) 40 mg PO DAILY [facility] Last Admin: 06/12/18 09:20 Dose: 40 mg Potassium Chloride (K-Dur) 20 meq PO DAILYCM [facility] Last Admin: 06/12/18 09:21 Dose: 20 meq Pravastatin Sodium (Pravachol) 80 mg PO QHS [facility] Last Admin: 06/11/18 22:28 Dose: 80 mg Sodium Chloride () 5 - 15 ml IV UD PRN PRN Reason: SALINE FLUSH Last Admin: 06/12/18 09:21 Dose: 10 ml Tamsulosin HCl (Flomax) 0.4 mg PO DAILY [facility] Last Admin: 06/12/18 09:21 Dose: 0.4 mg Medical Necessity - Tobacco Use Smoking Status: Former smoker Tobacco Use: Cigars Assessment/Plan All Active Problems (Last Reviewed 06/11/18 @ 03:03 by Feng Lott MD) Acute exacerbation of CHF (congestive heart failure) (Acute) Bilateral pulmonary embolism (Acute) 77-year-old male admitted with a complaint of shortness of breath was found to have acute exacerbation of heart failure with reduced ejection fraction. 1. Acute exacerbation of HFrEF EF is 30% form echo in 2018, with septal motion consistent with IVCD BNP was >5000 on IV lasix 40mg bid; fluid restriction to 1500cc daily will check 2D echo on entresto and metoprolol TSH was WNL urine output over last 24 hours was 2L, with negative balance of 2.57L. In cumulative negative balance by 3.7L weight is down from 180 pounds on admission to 169 pounds today 2. HYponatremia Na was 126 on admission; is still 129 today likely due to hypervolemic hyponatremia from fluid overload with CHF exacerbation expect to improve with diuresis 3. Hypertension: controlled for age. On metoprolol and Entresto. 4. Hyperlipidemia: On statin 5. Gout: On febuxostat. 6. BPH: On Flomax 7. History of PE and atrial flutter: On Eliquis. 8. Depression: On antidepressant- Vortioxetine 9. COPD: stable. 10. History of weight loss of unclear etiology: States he lost significant weight and had been worked up for prostate cancer but this was negative. Patient thinks that he has started gaining weight recently with good nutrition. 11. Pancytopenia: White cell count is still 3.9, and Hb is 10.8 today, platelets are 108. Thrombocytopenia and anemia chronic. Patient currently stable. Will monitor. DVT prophylaxis: On Eliquis Disposition: for DC home tomorrow if he remains stable Code Visit Inpatient E&M: 71802 Subs Hosp L2
--- NOTE | 2018-06-12 11:11 | PN_ITS ---
Patient Problems: Active and Suspected Problems (Last Reviewed 06/11/18 @ 03:03 by Feng Lott MD) Acute exacerbation of CHF (congestive heart failure) (Acute) Subjective: Patient seen and examined. He feels well today and has no complaints. Review of systems otherwise negative. Labs and vitals reviewed. Vitals/I&O's: Vital Signs Temp Pulse Resp BP Pulse Ox 98.0 F 82 14 145/81 H 94 06/12/18 09:20 06/12/18 09:20 06/12/18 09:20 06/12/18 09:20 06/12/18 09:20 Oxygen Delivery Method Room Air Weight: 169 lb 15.622 oz Body Mass Index (BMI) 27.4 Intake and Output for Last 24 Hours 06/10/18 06/11/18 06/12/18 23:59 23:59 23:59 Intake Total 120 / 120 480 / 480 120 / 120 Output Total 725 / 725 3050 / 3050 650 / 650 Balance -605 / -605 -2570 / -2570 -530 / -530 General: Alert, Oriented x3, Cooperative, No apparent distress HEENT: Atraumatic, PERRLA, EOMI, Normocephalic, - - Hard of hearing Oral: Moist Mucosa Neck: Supple, No JVD, Negative Carotid Bruits Lungs: - - Decreased breath sounds bibasilarly with no wheezing or crackles. Cardiovascular: Regular rate, Regular Rhythm, Normal S1, Normal S2, No murmurs Abdomen: Bowel Sounds Present, Soft, Non Tender, Non-Distended, No Hepato- splenomegaly Extremities: No clubbing, No cyanosis, Capillary Refill Less than 3 Seconds, - - Bilateral 1+ lower extremity pitting pedal edema Skin: No rashes, No breakdown Musculoskeletal: No Tenderness to Palpation of Joints or Extremities Lymphatic: No Cervical, Supraclavicular, or Inguinal Adenopathy Neurological: Cranial nerves II-XII grossly intact, Neuro grossly intact, Motor Exam 5/5 strength throughout Psych/Mental Status: Normal Affect, Appropriate, Alert and oriented to time, place, person, mood and affect Laboratory Results 06/12/18 05:55: WBC 3.9 L, RBC 3.30 L, Hgb 10.8 L, Hct 31.2 L, MCV 94.5 H, MCH 32.7 H, MCHC 34.6, RDW 15.5 H, RDW Differential 52.5 H, Plt Count 108 L, MPV 9.2, Immature Gran % (Auto) 0.000, Neut % (Auto) 61.7, Lymph % (Auto) 25.3, [place] % (Auto) 10.7 H, Eos % (Auto) 2.0, Baso % (Auto) 0.3, Absolute Neuts (auto) 2.4, Absolute Lymphs (auto) 0.99, Total Counted Not Reportable 06/12/18 05:55: Sodium 129 L, Potassium 3.5, Chloride 91 L, Carbon Dioxide 27.0, Anion Gap 11, BUN 15, Creatinine 1.16, Estim Creat Clear Calc 51.59, Est GFR (MDRD) Af Amer 78, Est GFR (MDRD) Non-Af 65, BUN/Creatinine Ratio 12.9, Glucose 85, Calcium 8.5 Diagnostic Data Chest X-Ray 06/10/18 18:30 IMPRESSION: 1. Interval worsening with development of congestive heart failure, pulmonary edema, and probable bilateral pleural effusions. 2. Previous CABG. at 0756 Reported and signed by: Saúl Araiza MD Electronically Signed: Saúl Araiza, at 7:55 EDT Tel , Service support , Current Medications Acetaminophen (Tylenol) 650 mg PO Q6H PRN PRN PRN Reason: Mild pain 1-3/Temp > 100.7 F Last Admin: 06/11/18 15:47 Dose: 650 mg Hydrocodone Bitart/Acetaminophen ([place] 5mg-325mg) 1 tablet PO Q6 [facility] Last Admin: 06/12/18 05:26 Dose: 1 tablet Apixaban (Eliquis) 5 mg PO BID [facility] Last Admin: 06/12/18 09:21 Dose: 5 mg Dextrose (D50w Syringe) 0 gm IV X1 PRN; Protocol PRN Reason: Hypoglycemia Famotidine (Pepcid) 40 mg PO DAILY [facility] Last Admin: 06/12/18 09:20 Dose: 40 mg Finasteride (Proscar) 5 mg PO DAILY [facility] Last Admin: 06/12/18 09:20 Dose: 5 mg Furosemide (Lasix) 40 mg IV BIDLX [facility] Last Admin: 06/12/18 09:21 Dose: 40 mg Glucagon () 1 mg IM .X1 PRN PRN Reason: Hypoglycemia Metoprolol Tartrate (Lopressor (Beta Thomas)) 50 mg PO BID [facility] Last Admin: 06/12/18 09:20 Dose: 50 mg Oxybutynin Chloride (Ditropan) 5 mg PO TID [facility] Last Admin: 06/12/18 05:26 Dose: 5 mg Pantoprazole Sodium (Protonix) 40 mg PO DAILY [facility] Last Admin: 06/12/18 09:20 Dose: 40 mg Potassium Chloride (K-Dur) 20 meq PO DAILYCM [facility] Last Admin: 06/12/18 09:21 Dose: 20 meq Pravastatin Sodium (Pravachol) 80 mg PO QHS [facility] Last Admin: 06/11/18 22:28 Dose: 80 mg Sodium Chloride () 5 - 15 ml IV UD PRN PRN Reason: SALINE FLUSH Last Admin: 06/12/18 09:21 Dose: 10 ml Tamsulosin HCl (Flomax) 0.4 mg PO DAILY [facility] Last Admin: 06/12/18 09:21 Dose: 0.4 mg Medical Necessity - Tobacco Use Smoking Status: Former smoker Tobacco Use: Cigars Assessment/Plan All Active Problems (Last Reviewed 06/11/18 @ 03:03 by Feng Lott MD) Acute exacerbation of CHF (congestive heart failure) (Acute) Bilateral pulmonary embolism (Acute) 77-year-old male admitted with a complaint of shortness of breath was found to have acute exacerbation of heart failure with reduced ejection fraction. 1. Acute exacerbation of HFrEF * EF is 30% form echo in 2018, with septal motion consistent with IVCD * BNP was >5000 * on IV lasix 40mg bid; fluid restriction to 1500cc daily * will check 2D echo * on entresto and metoprolol * TSH was WNL * urine output over last 24 hours was 2L, with negative balance of 2.57L. In cumulative negative balance by 3.7L * weight is down from 180 pounds on admission to 169 pounds today * 2. HYponatremia * Na was 126 on admission; is still 129 today * likely due to hypervolemic hyponatremia from fluid overload with CHF exacerbation * expect to improve with diuresis * 3. Hypertension: controlled for age. On metoprolol and Entresto. 4. Hyperlipidemia: On statin 5. Gout: On febuxostat. 6. BPH: On Flomax 7. History of PE and atrial flutter: On Eliquis. 8. Depression: On antidepressant- Vortioxetine 9. COPD: stable. 10. History of weight loss of unclear etiology: * States he lost significant weight and had been worked up for prostate cancer but this was negative. * Patient thinks that he has started gaining weight recently with good nutrition. 11. Pancytopenia: * White cell count is still 3.9, and Hb is 10.8 today, platelets are 108. * Thrombocytopenia and anemia chronic. * Patient currently stable. Will monitor. * DVT prophylaxis: On Eliquis Disposition: for DC home tomorrow if he remains stable Code Visit Inpatient E&M: 37810 Subs Hosp L2
[2018-06-12] MEDS: Pravastatin 80 MG Tablet PO (21:33)
[2018-06-13] VITALS (8 sets, daily range): BP systolic 115–133; BP diastolic 71–74; PULSE 68–83; RESP 16; TEMP 36.4–36.8; O2SAT 92–97
[2018-06-13] MEDS: HYDROcodone Bitartrate/Apap 5/325 Tablet PO ×2 (05:52→13:18)
[2018-06-13] MEDS: Oxybutynin 5 MG Tablet PO (05:52)
[2018-06-13 05:58] LABS: Absolute Lymphocyte Count 0.96 X10^3/ul (0.83-4.51); Absolute Neutrophil Count 2.6 X10^3/uL (2.0-7.7); Basophil# 0.01 X10^3/uL; Basophil% 0.2 % (0-1); Eosinophil# 0.09 X10^3/uL; Eosinophils% 2.2 % (0-5); Hematocrit 31.2 % (40-54); Hemoglobin 10.8 g/dl (13.0-16.5); Lymphocyte # 0.96 X10^3/ul (4.0); Lymphocyte % 23.4 % (19-41); Mean Corp Hgb Conc 34.6 g/gl (32-36); Mean Corpuscular Hgb 32.8 pg (27.0-32.0); Mean Corpuscular Volume 94.8 fL (80-94); Mean Platelet Vol. 9.6 fl (6.2-12.0); Monocyte# 0.47 X10^3/uL; Monocyte% 11.4 % (0-10); Neutrophil # 2.58 X10^3/uL (2.7-7.7); Neutrophil % 62.8 % (47-70); Platelet Count 118 K/mm3 (150-450); RBC Distribution Width CV 15.4 % (11.6-14.6); RBC Distribution Width SD 50.7 fl (35.1-43.9); Red Blood Count 3.29 M/mm3 (4.6-6.2); White Blood Count 4.1 K/mm3 (4.4-11.0)
[2018-06-13 06:07] LABS: Anion Gap 10 (5-15); BUN 16 mg/dL (7-18); BUN/Creat Ratio 15.1 RATIO (10-20); Calcium,Total 8.3 mg/dL (8.5-10.1); Chloride 91 mmol/L (98-107); Creatinine, Serum 1.06 mg/dL (0.70-1.30); EST Glomerular Filtration Rate 72 mL/min (>60); Est Glom Filt Rate - Afr Amer 87 mL/min (>60); Estimated Creatinine Clearance 56.46 ml/min; Glucose 90 mg/dL (74-106); Potassium 3.3 mmol/L (3.5-5.1); Sodium Level 130 mmol/L (136-145)
[2018-06-13 06:23] LABS: POSITIVE COUNT NO; POSITIVE DIFFERENTIAL NO; POSITIVE MORPHOLOGY NO
--- NOTE | 2018-06-13 09:04 | PCM.DC ---
- Discharge Diagnoses Current Active Problems: Current Active and Chronic Problems (Last Reviewed 06/11/18 @ 03:03 by Feng Lott MD) Acute exacerbation of CHF (congestive heart failure) (Acute) You will use the following diet at home:: Cardiac Your food should be the consistency of: Regular Your liquids should be the consistency of: Regular/Thin Discharge Activity: Return to Normal Activity Weight Bearing Status: Weight bearing as tolerated Call your doctor if you observe: Shortness of breath, Dizziness, Swelling in the ankles, Chest pain Instructions: Discharge Instructions for Heart Failure, Heart Failure: Medications to Help Your Heart, Taking Medication to Control Heart Failure Additional Instructions: follow up with PCP to repeat BMP in 2-3 days to follow up on blood potassium level Allergies/Adverse Reactions: Allergies Penicillins Allergy (Verified 06/10/18 17:41) Unknown Medications to take at Discharge Febuxostat [Uloric] 40 mg PO DAILY 02/12/17 metoprolol tartrate 100 mg tablet 50 mg PO BID tab 11/23/17 Alfuzosin HCl [Alfuzosin HCl ER] 10 mg PO DAILY 06/10/18 Apixaban [Eliquis] 5 mg PO BID 06/10/18 Famotidine 40 mg PO DAILY 06/10/18 Finasteride 5 mg PO DAILY 06/10/18 Hydrocodone/Acetaminophen [Hydrocodone-Acetamin 7.5-325] 1 tab PO 4X/DAY 06/10/18 Omeprazole 40 mg PO DAILY 06/10/18 Oxybutynin [Ditropan] 5 mg PO TID 06/10/18 Pravastatin [Pravachol] 80 mg PO QHS 06/10/18 Sacubitril/Valsartan 97-103 mg [Entresto 97 mg-103 mg Tablet] 1 each PO BID 06/10/18 Vortioxetine Hydrobromide [Trintellix] 20 mg PO DAILY 06/10/18 Furosemide [Lasix] 40 mg PO BIDLX #60 tablet 06/13/18 Potassium Chloride [K-Dur] 20 meq PO DAILY #30 tablet 06/13/18 The following prescriptions were given: Furosemide [Lasix] 40 mg PO BIDLX #60 tablet Potassium Chloride [K-Dur] 20 meq PO DAILY #30 tablet Primary Care Physician: Jaden Farmer Chi, MD [Primary Care Provider] - Please follow up with your Primary Care Physician in: one week Test Results: Test results from this visit will be discussed in further detail at your follow-up appointment, if applicable. Please Follow Up With: Vic Escobar MD When: one week Proposed Discharge Date: 06/13/18
--- NOTE | 2018-06-13 09:07 | DCINST_ITS ---
- Discharge Diagnoses Current Active Problems: Current Active and Chronic Problems (Last Reviewed 06/11/18 @ 03:03 by Feng Lott MD) Acute exacerbation of CHF (congestive heart failure) (Acute) You will use the following diet at home:: Cardiac Your food should be the consistency of: Regular Your liquids should be the consistency of: Regular/Thin Discharge Activity: Return to Normal Activity Weight Bearing Status: Weight bearing as tolerated Call your doctor if you observe: Shortness of breath, Dizziness, Swelling in the ankles, Chest pain Instructions: Discharge Instructions for Heart Failure, Heart Failure: Medications to Help Your Heart, Taking Medication to Control Heart Failure Additional Instructions: follow up with PCP to repeat BMP in 2-3 days to follow up on blood potassium level Allergies/Adverse Reactions: Allergies Penicillins Allergy (Verified 06/10/18 17:41) Unknown Medications to take at Discharge Febuxostat [Uloric] 40 mg PO DAILY 02/12/17 metoprolol tartrate 100 mg tablet 50 mg PO BID tab 11/23/17 Alfuzosin HCl [Alfuzosin HCl ER] 10 mg PO DAILY 06/10/18 Apixaban [Eliquis] 5 mg PO BID 06/10/18 Famotidine 40 mg PO DAILY 06/10/18 Finasteride 5 mg PO DAILY 06/10/18 Hydrocodone/Acetaminophen [Hydrocodone-Acetamin 7.5-325] 1 tab PO 4X/DAY 06/10 Omeprazole 40 mg PO DAILY 06/10/18 Oxybutynin [Ditropan] 5 mg PO TID 06/10/18 Pravastatin [Pravachol] 80 mg PO QHS 06/10/18 Sacubitril/Valsartan 97-103 mg [Entresto 97 mg-103 mg Tablet] 1 each PO BID 06/10/18 Vortioxetine Hydrobromide [Trintellix] 20 mg PO DAILY 06/10/18 Furosemide [Lasix] 40 mg PO BIDLX #60 tablet 06/13/18 Potassium Chloride [K-Dur] 20 meq PO DAILY #30 tablet 06/13/18 The following prescriptions were given: Furosemide [Lasix] 40 mg PO BIDLX #60 tablet Potassium Chloride [K-Dur] 20 meq PO DAILY #30 tablet Primary Care Physician: Jaden Farmer Chi, MD [Primary Care Provider] - Please follow up with your Primary Care Physician in: one week Test Results: Test results from this visit will be discussed in further detail at your follow- up appointment, if applicable. Please Follow Up With: Vic Escobar MD When: one week Proposed Discharge Date: 06/13/18
--- NOTE | 2018-06-13 09:07 | PCM.DC.SUM ---
Discharge Date and Diagnosis - Problem List Patient Problems: Active and Suspected Problems (Last Reviewed 06/11/18 @ 03:03 by Feng Lott MD) Acute exacerbation of CHF (congestive heart failure) (Acute) Date of Admission: 06/10/18 Date of Discharge: 06/13/18 - Primary Discharge Diagnosis Active and Suspected Problems (Last Reviewed 06/11/18 @ 03:03 by Feng Lott MD) Acute exacerbation of systolic CHF (congestive heart failure) (Acute) - Secondary Discharge Diagnosis Chronic Problems (Last Reviewed 06/11/18 @ 03:03 by Feng Lott MD) History of loop recorder (Chronic) Implant: 02/19/2015 at [facility] Serial number: [id number] Model number: [id number] [employer]: [employer] Carotid bruit (Chronic) Ischemic cardiomyopathy (Chronic) Renal disease (Chronic) Presence of aortocoronary bypass graft (Chronic) 10/30/94 CABGx4 WYATT to LAD,SVG to first diagonal,the second diagonal,and to posterolateral branch of RCA Atherosclerotic heart disease of [place] coronary artery without angina pectoris (Chronic) 10/30/94 CABGx4 WYATT to LAD,SVG to first diagonal,the second diagonal,and to posterolateral branch of RCA Syncope (Chronic) Status post placement of implantable loop recorder (Chronic) Diarrhea (Chronic) Nausea & vomiting (Chronic) Weight loss, unintentional (Chronic) COPD (chronic obstructive pulmonary disease) (Chronic) History of successful cardiopulmonary resuscitation (Chronic) CAD (coronary artery disease) (Chronic) History of stroke (Chronic) Left bundle branch block (Chronic) Carotid artery disease (Chronic) HLD (hyperlipidemia) (Chronic) HTN (hypertension) (Chronic) Hospital Course and Treatment Imaging Results: Diagnostic Data Chest X-Ray 06/10/18 18:30 IMPRESSION: 1. Interval worsening with development of congestive heart failure, pulmonary edema, and probable bilateral pleural effusions. 2. Previous CABG. at 0756 Reported and signed by: Saúl Araiza MD Electronically Signed: Saúl Araiza, at 7:55 EDT Tel , Service support , Operations: None Procedures: 2-D Echocardiogram Summary of Care Provided: The patient is a 77 year old M with a PMH of CAD and ischemic cardiomyopathy s/p ICD, HFrEF (EF of 30%), COPD and CKD 3,who was admitted with a complaint of 1 month history of progressively worsening shortness of breath with a severe flare on the day of presentation. He had associated PND and orthopnea as well as increased LE swelling. Family though he had gained ~ 8 pounds in the last 10 days. BNP was >5000 on admission, and patient had not been on any lasix at home. EKG shwoed no acute ST changes. H was admitted and managed for acute exacerbation of Heart failure with reduced EF. He was started on IV lasix 40mg bid, with monitoring of input and output. Fluid restriction 2500 mg daily. He had a repeat echo which showed EF of 15 to 20% with severe global hypokinesis which was similar to previous echo. Patient shortness of breath currently and lower extremity edema resolved. He was saturating well on room air. He remained stable and was discharged home on 06/13/2018 with a prescription for p.o. Lasix 40 mg twice daily as well as p.o. potassium 20 mg daily. He is to continue his metoprolol and Entresto. He is follow-up with his primary care doctor and youth services librarian within 1 week. Patient seen and examined prior to discharge. His ex- who is his primary caregiver was by his side. He had no complaints and denied any shortness of breath, palpitations, dizziness, chest pain, lower extremity edema. Review of systems otherwise negative. Labs and vitals reviewed. Home medication reviewed on consult. o/e: Vital Signs Height 5 ft 8 in Weight: 169 lb 15.622 oz Weight in Pounds 170.0 lbs Pulse Ox [AMBULATION with 89 Oxygen] Pulse Ox 93 Temperature 97.6 F Pulse Rate 80 Respiratory Rate 16 Blood Pressure 133/74 Blood Pressure Position Semi-Fowlers [] General: Alert, Oriented x3, Cooperative, No apparent distress HEENT: Atraumatic, PERRLA, EOMI, Normocephalic, - - Hard of hearing Oral: Moist Mucosa Neck: Supple, No JVD, Negative Carotid Bruits Lungs: - - Decreased breath sounds bibasilarly with no wheezing or crackles. Cardiovascular: Regular rate, Regular Rhythm, Normal S1, Normal S2, No murmurs Abdomen: Bowel Sounds Present, Soft, Non Tender, Non-Distended, No Hepato-splenomegaly Extremities: No clubbing, No cyanosis, Capillary Refill Less than 3 Seconds, - - mild bilateral lower extremity pitting pedal edema Skin: No rashes, No breakdown Musculoskeletal: No Tenderness to Palpation of Joints or Extremities Lymphatic: No Cervical, Supraclavicular, or Inguinal Adenopathy Neurological: Cranial nerves II-XII grossly intact, Neuro grossly intact, Motor Exam 5/5 strength throughout Psych/Mental Status: Normal Affect, Appropriate, Alert and oriented to time, place, person, mood and affect Patient Problems: Active and Suspected Problems (Last Reviewed 06/11/18 @ 03:03 by Feng Lott MD) Acute exacerbation of CHF (congestive heart failure) (Acute) - Physical Exam Vital Signs Temp Pulse Resp BP Pulse Ox 98.3 F 68 16 115/71 97 06/13/18 03:20 06/13/18 06:44 06/13/18 03:20 06/13/18 03:20 06/13/18 06:55 Oxygen Delivery Method Room Air Weight: 169 lb 15.622 oz Body Mass Index (BMI) 27.4 Intake and Output for Last 24 Hours 06/11/18 06/12/18 06/13/18 23:59 23:59 23:59 Intake Total 480 / 480 1440 / 1440 60 / 60 Output Total 3050 / 3050 1700 / 1700 350 / 350 Balance -2570 / -2570 -260 / -260 -290 / -290 Laboratory Tests Past 24 Hrs 06/13/18 06/13/18 05:16 05:16 WBC 4.1 L RBC 3.29 L Hgb 10.8 L Hct 31.2 L MCV 94.8 H MCH 32.8 H MCHC 34.6 RDW 15.4 H RDW Differential 50.7 H Plt Count 118 L MPV 9.6 Immature Gran % (Auto) 0.000 Neut % (Auto) 62.8 Lymph % (Auto) 23.4 [place] % (Auto) 11.4 H Eos % (Auto) 2.2 Baso % (Auto) 0.2 Absolute Neuts (auto) 2.6 Absolute Lymphs (auto) 0.96 Total Counted Not Reportable Sodium 130 L Potassium 3.3 L Chloride 91 L Carbon Dioxide 29.0 Anion Gap 10 BUN 16 Creatinine 1.06 Estim Creat Clear Calc 56.46 Est GFR (MDRD) Af Amer 87 Est GFR (MDRD) Non-Af 72 BUN/Creatinine Ratio 15.1 Glucose 90 Calcium 8.3 L Discharge Diet: Low fat/ Low Cholesterol Discharge Activity: Return to Normal Activity Weight Bearing Status: Weight bearing as tolerated Call your doctor if you observe: Shortness of breath, Dizziness, Swelling in the ankles, Chest pain Home Medications: Medications to take at Discharge Febuxostat [Uloric] 40 mg PO DAILY 02/12/17 metoprolol tartrate 100 mg tablet 50 mg PO BID tab 11/23/17 Alfuzosin HCl [Alfuzosin HCl ER] 10 mg PO DAILY 06/10/18 Apixaban [Eliquis] 5 mg PO BID 06/10/18 Famotidine 40 mg PO DAILY 06/10/18 Finasteride 5 mg PO DAILY 06/10/18 Hydrocodone/Acetaminophen [Hydrocodone-Acetamin 7.5-325] 1 tab PO 4X/DAY 06/10/18 Omeprazole 40 mg PO DAILY 06/10/18 Oxybutynin [Ditropan] 5 mg PO TID 06/10/18 Pravastatin [Pravachol] 80 mg PO QHS 06/10/18 Sacubitril/Valsartan 97-103 mg [Entresto 97 mg-103 mg Tablet] 1 each PO BID 06/10/18 Vortioxetine Hydrobromide [Trintellix] 20 mg PO DAILY 06/10/18 Furosemide [Lasix] 40 mg PO BIDLX #60 tablet 06/13/18 Potassium Chloride [K-Dur] 20 meq PO DAILY #30 tablet 06/13/18 Following Prescrptions Were Given to Patient: Furosemide [Lasix] 40 mg PO BIDLX #60 tablet Potassium Chloride [K-Dur] 20 meq PO DAILY #30 tablet Primary Care Physician: Jaden Farmer Chi, MD [Primary Care Provider] - Please follow up with your Primary Care Physician in: one week Please Follow Up With: Vic Escobar MD When: one week Patient Instructions: Taking Medication to Control Heart Failure, Heart Failure: Medications to Help Your Heart, Discharge Instructions for Heart Failure Disposition: Home with Home Health Minutes spent on discharge:: 40 Patient Condition:: Stable Medical Necessity - Tobacco Use Smoking Status: Former smoker Tobacco Use: Cigars Meaningful Use Info Meaningful Use Diagnoses (Choose all that apply): CHF - CHF JEFFREY/ARB ordered at discharge?: Yes Documented LVEF (%): 20 Code Visit Inpatient E&M: 84808 Disch Hosp
[2018-06-13] MEDS: APIXABAN 5 MG TABLET PO (10:55)
[2018-06-13] MEDS: Metoprolol Tartrate 50 MG Tablet PO (10:56)
[2018-06-13] MEDS: Famotidine 20 MG Tablet 40 MG PO (10:56)
[2018-06-13] MEDS: SACUBITRIL/VALSARTAN 97-103 MG TABLET 1 EACH PO (10:56)
[2018-06-13] MEDS: VORTIOXETINE HYDROBROMIDE 10 MG TABLET 20 MG PO (10:57)
[2018-06-13] MEDS: Pantoprazole Sodium 40 MG Tablet PO (10:57)
[2018-06-13] MEDS: Tamsulosin HCl 0.4 MG Capsule PO (10:57)
[2018-06-13] MEDS: Febuxostat 40 MG TABLET PO (10:58)
[2018-06-13] MEDS: Finasteride 5 MG Tablet PO (10:58)
[2018-06-13] MEDS: Furosemide 40 MG Tablet PO (11:00)
--- NOTE | 2018-06-14 12:38 | CASEMGMT ---
JACOB CM DC PHONE CALL DC DATE: 06/13/18 DC Disposition: Home LACE/STRATA: 12/12 Attempted call to patient's cell phone. No answer, and no messge machine fruit picker. Facundo JOHNSONN RN ACM
== END 2018-06-13 13:30 | disposition home or self-care (01) | DRG 291 ==
LOC: ED 18:38 → PCU 21:31
PROVIDERS: Admitting Provider Hospitalist; Emergency Provider Emergency Medicine; Family Provider Family Medicine Geriatric Medicine; PCP Family Medicine Geriatric Medicine; Visit Provider Student in an Organized Health Care Education/Training Program
DX: I13.0 Hypertensive heart and chronic kidney disease with heart failure and stage 1 through stage 4 chronic kidney disease, or unspecified chronic kidney disease (principal); I50.23 Acute on chronic systolic (congestive) heart failure; E87.1 Hypo-osmolality and hyponatremia; N18.3 Chronic kidney disease, stage 3 (moderate); J44.9 Chronic obstructive pulmonary disease, unspecified; G89.29 Other chronic pain; M79.605 Pain in left leg; M79.604 Pain in right leg; N40.0 Benign prostatic hyperplasia without lower urinary tract symptoms; I25.10 Atherosclerotic heart disease of native coronary artery without angina pectoris; E78.5 Hyperlipidemia, unspecified; M10.9 Gout, unspecified; R63.4 Abnormal weight loss; I25.5 Ischemic cardiomyopathy; Z86.711 Personal history of pulmonary embolism; Z79.01 Long term (current) use of anticoagulants; Z95.1 Presence of aortocoronary bypass graft; Z87.891 Personal history of nicotine dependence; Z68.27 Body mass index [BMI] 27.0-27.9, adult; Z86.73 Personal history of transient ischemic attack (TIA), and cerebral infarction without residual deficits; Z95.810 Presence of automatic (implantable) cardiac defibrillator
CPT/HCPCS: 36415; 71045; 80048; 81001; 83880; 84484; 85025; 93005; 93306; 97116; 97162; 97165; 97530; 99283; 99406; Q9957; A4216; C8929; J1940

== ENCOUNTER → 2018-06-17 | Outpatient (CLI) | payer MEDICARE, MEDICAID, SELFPAY ==
[2018-06-10 22:15] VITALS: BMI 27.4
[2018-06-17 18:18] LABS: ALB/GLOB Ratio 1.1 RATIO (0.9-2.4); AST(SGOT) 21 U/L (15-37); Alanine Aminotransfer ALT/SGPT 44 U/L (16-61); Albumin, Serum 3.3 g/dL (3.2-5.0); Alkaline Phosphatase 48 U/L (45-117); Anion Gap 9 (5-15); BUN 21 mg/dL (7-18); BUN/Creat Ratio 18.6 RATIO (10-20); Calcium,Total 8.5 mg/dL (8.5-10.1); Chloride 97 mmol/L (98-107); Creatinine, Serum 1.13 mg/dL (0.70-1.30); EST Glomerular Filtration Rate 67 mL/min (>60); Est Glom Filt Rate - Afr Amer 81 mL/min (>60); Globulin 3.1 g/dL (2.2-4.2); Glucose 90 mg/dL (74-106); Potassium 3.7 mmol/L (3.5-5.1); Protein, Total 6.4 g/dL (6.4-8.2); Sodium Level 136 mmol/L (136-145); Uric Acid 3.7 mg/dL (3.5-7.2)
[2018-06-17 18:29] LABS: Hematocrit 32.8 % (40-54); Hemoglobin 10.8 g/dl (13.0-16.5); Lymphocyte % 23.6 % (19-41); Mean Corp Hgb Conc 32.9 g/gl (32-36); Mean Corpuscular Hgb 32.2 pg (27.0-32.0); Mean Corpuscular Volume 97.9 fL (80-94); Mean Platelet Vol. 9.2 fl (6.2-12.0); Monocyte% 13.7 % (0-10); Neutrophil % 60.9 % (47-70); POSITIVE COUNT NO; POSITIVE DIFFERENTIAL NO; POSITIVE MORPHOLOGY NO; Platelet Count 119 K/mm3 (150-450); RBC Distribution Width CV 15.7 % (11.6-14.6); RBC Distribution Width SD 54.2 fl (35.1-43.9); Red Blood Count 3.35 M/mm3 (4.6-6.2); White Blood Count 4.4 K/mm3 (4.4-11.0)
[2018-06-17 18:30] LABS: Absolute Lymphocyte Count 1.05 X10^3/ul (0.83-4.51); Absolute Neutrophil Count 2.7 X10^3/uL (2.0-7.7); Basophil# 0.01 X10^3/uL; Basophil% 0.2 % (0-1); Eosinophil# 0.07 X10^3/uL; Eosinophils% 1.6 % (0-5); Lymphocyte # 1.05 X10^3/ul (4.0); Monocyte# 0.61 X10^3/uL
== END | disposition home or self-care (01) ==
LOC: POLAB3 16:25
PROVIDERS: Family Provider Family Medicine Geriatric Medicine; PCP Family Medicine Geriatric Medicine; Visit Provider Family Medicine Geriatric Medicine
DX: I10 Essential (primary) hypertension (principal); E55.9 Vitamin D deficiency, unspecified; M10.9 Gout, unspecified
CPT/HCPCS: 36415; 80053; 82306; 84443; 84550; 85025

== ENCOUNTER → 2018-06-25 | Outpatient (CLI) | payer MEDICARE, MEDICAID, SELFPAY ==
[2018-06-25 12:32] VITALS: BMI 27.6
[2018-06-25 16:17] LABS: Anion Gap 38 (5-15); BUN 15 mg/dL (7-18); BUN/Creat Ratio 16.2 RATIO (10-20); Calcium,Total 7.7 mg/dL (8.5-10.1); Chloride 83 mmol/L (98-107); Creatinine, Serum 0.93 mg/dL (0.70-1.30); EST Glomerular Filtration Rate 84 mL/min (>60); Est Glom Filt Rate - Afr Amer 102 mL/min (>60); Glucose 83 mg/dL (74-106); Potassium 3.6 mmol/L (3.5-5.1); Sodium Level 143 mmol/L (136-145)
== END | disposition home or self-care (01) ==
PROVIDERS: Family Provider Family Medicine Geriatric Medicine; PCP Family Medicine Geriatric Medicine; Referring Provider Internal Medicine Cardiovascular Disease; Visit Provider Internal Medicine Cardiovascular Disease
DX: Z95.1 Presence of aortocoronary bypass graft (principal)
CPT/HCPCS: 36415; 80048

== ENCOUNTER → 2018-07-07 | Outpatient (CLI) | payer MEDICARE, MEDICAID, SELFPAY ==
[2018-06-25 12:32] VITALS: BMI 27.6
--- NOTE | 2018-07-07 12:21 | STRESSREP ---
Stress Test Report Pharmacologic myocardial perfusion stress test. 77-year-old man with a history of previous coronary artery bypass surgery. Medications: Eliquis, omeprazole, metoprolol. Stress protocol: Resting EKG demonstrates normal sinus rhythm with a rate of 63 bpm left bundle branch block pattern is noted. 0.4 mg of regadenoson was infused per usual protocol followed by rapid intravenous and flush injection continuous EKG monitoring was performed. Patient maintained sinus rhythm throughout the recording. The maximum heart rate attained was 81 bpm which was 56% of maximum predicted heart rate the maximum workload was 1 metabolic equivalent. At rest there were no ST or T wave changes noted suggest abnormal flow reserve at peak infusion nonspecific ST-T wave changes were noted. The patient maintained the left bundle branch block pattern. Resting blood pressure was 128/70 final blood pressure was 118/70. Myocardial perfusion protocol. 11.7 mCi of technetium 99m sestamibi was injected at rest. 0.4 mg of regadenoson was infused per usual protocol peak infusion 31.7 mCi of technetium 99m sestamibi was injected stress images were obtained stress and rest images were reconstructed in comparing the short axis vertical long horizontal long axis. Gated images were also obtained per Perfusion SPECT analysis: Review of the stress images demonstrate a mildly dilated cardiac silhouette size. There is reduced perfusion noted in the apex and the stress and resting images with minimal improvement in the apex suggesting possibly mild amount of apical ischemia. There is reduction of flow also noted in the inferior wall. The above could be suggestive of a cardiomyopathy. Gated SPECT analysis: The gated ejection fraction is noted to be 36% with global hypokinesis noted. Conclusion: Myocardial perfusion stress test with no obvious ischemia noted. Previous small apical infarct cannot be excluded. Mild apical ischemia cannot be completely excluded. Cardiomyopathy present.
== END | disposition home or self-care (01) ==
LOC: CVS 06:53
PROVIDERS: Family Provider Family Medicine Geriatric Medicine; PCP Family Medicine Geriatric Medicine; Referring Provider Internal Medicine Cardiovascular Disease; Visit Provider Internal Medicine Cardiovascular Disease
DX: I25.5 Ischemic cardiomyopathy (principal)
CPT/HCPCS: 78452; 93017; A9500; A4216; J2785

== ENCOUNTER 2018-07-08 13:29 | Inpatient (IN) | payer MEDICARE, MEDICAID, SELFPAY ==
[2018-06-25 12:32] VITALS: BMI 27.6
[2018-07-08] VITALS (7 sets, daily range): BP systolic 80–132; BP diastolic 49–61; PULSE 62–78; RESP 16; TEMP 36.4–36.8; O2SAT 97–98; BMI 23.2; BMI 23.6
--- NOTE | 2018-07-08 13:42 | EKG12_ITS ---
Test Reason : HYPOTENSION Blood Pressure : / mmHG Vent. Rate : 063 BPM Atrial Rate : 063 BPM P-R Int : 186 ms QRS Dur : 174 ms QT Int : 464 ms P-R-T Axes : -10 003 141 degrees QTc Int : 474 ms Normal sinus rhythm Left bundle branch block Abnormal ECG Confirmed by MIGEL RAMIREZ, ARNAUD ([id number]), editorial specialist JOHN OROPEZA ([id number] on 07/12/2018 1:13:29 PM Referred By: AUGUST Confirmed By:ARNAUD LAINEZ MD
--- NOTE | 2018-07-08 13:43 | RAD_ITS ---
STUDY: X-RAY CHEST REASON FOR EXAM: Male, 77 years old. Shortness of breath. Chest pain and weakness. TECHNIQUE: AP and lateral views of the chest. COMPARISON: Comparison is made with prior study dated June 10, 2018. FINDINGS: EKG electrodes are seen. Stable mild pleural parenchymal changes at the left lung base. No evidence of CHF. Sternal cerclage wires and vascular clips are present from a prior sternotomy and coronary artery bypass graft procedure (CABG). Mild cardiomegaly. A loop recording device is seen in the left lower thorax. Normal mediastinum and marisabel. Normal visualized pulmonary arteries. There is atherosclerotic calcification of the aortic arch with tortuosity. There is demineralization of the osseous structures. Normal visualized ribs, clavicles, and shoulders. There is no demonstrated abnormality of the visualized soft tissue structures of the upper abdomen. RAD/Chest PA and Lateral IMPRESSION: Mild pleural parenchymal changes at the left lung base. No evidence of CHF at this time. Electronically Signed: Alfonso Sarah, at 15:17 EDT , Service support ,
--- NOTE | 2018-07-08 13:54 | ED.DCSUM_ITS ---
- ER Visit Summary Date of Service: 07/08/18 Chief Complaint: Dizziness History of Present Illness: The patient is a 77 M with history of congestive heart failure presents to the emergency department with lightheadedness and low blood pressure. The patient was recently admitted for CHF exacerbation. He was placed on fluid restriction. He underwent an echo which demonstrated an ejection fraction of 15 to 20%. The patient has been compliant with all his medications. He states his been limiting his fluids. He had decreased appetite though. He states he had about a 15 pound weight loss since his discharge from the hospital.. He states that over the past 2 days, he is on low blood pressures with systolics in the 80s. He states when he stands, he gets lightheaded and feels it is going to pass out. He denies any fevers or chills. He denies any other symptoms. Physical Examination: Vital signs reviewed General: Well-nourished, well-developed Head: Normocephalic, atraumatic Eyes: Pupils equal and reactive, extraocular muscles intact Neck, supple, no lymphadenopathy Heart: Regular rate and rhythm Respiratory: No distress, clear bilaterally Abdomen: Soft, nontender, nondistended, no peritoneal signs Back: Nontender Extremities: Nontender, no edema, no cords Skin: Normal color no rash Neuro: Alert and oriented, no focal or lateralizing deficits Test Results: [] Emergency Department Course and Treatment: EKG was obtained on patient arrival. There was a left bundle branch block there is unchanged from prior. My suspicion is that the patient is likely been over diuresed with his recent diagnosis of heart failure. Is not been eating and drinking as much. Clinically, he does appear to be dry. Orthostatics were obtained were unremarkable. Screening labs were also unremarkable. X-ray shows no evidence of volume overload. Patient was given a small fluid bolus and had some improvement. Given his advanced cardiovascular disease, I do feel he would benefit from observation patient was discussed with the hospitalist who agrees with plan of care. Treatment Plan: [] Disposition: Observation Impression: 1. Near syncope 2. Dehydration This note was generated with [email or web address] software. It may contain incorrect words, spelling, and punctuation that were not noted in review of the chart prior to signing ED Disposition - Plan for ED Patient: Referrals: Jaden Farmer Chi, MD [Primary Care Provider] -
[2018-07-08 14:34] LABS: Absolute Lymphocyte Count 1.19 X10^3/ul (0.83-4.51); Absolute Neutrophil Count 2.2 X10^3/uL (2.0-7.7); Eosinophil# 0.12 X10^3/uL; Hematocrit 31.5 % (40-54); Hemoglobin 10.9 g/dl (13.0-16.5); Lymphocyte # 1.19 X10^3/ul (4.0); Lymphocyte % 29.5 % (19-41); Mean Corp Hgb Conc 34.6 g/gl (32-36); Mean Corpuscular Hgb 32.2 pg (27.0-32.0); Mean Corpuscular Volume 92.9 fL (80-94); Mean Platelet Vol. 9.2 fl (6.2-12.0); Monocyte# 0.51 X10^3/uL; Monocyte% 12.6 % (0-10); Neutrophil # 2.22 X10^3/uL (2.7-7.7); Neutrophil % 54.9 % (47-70); Platelet Count 108 K/mm3 (150-450); RBC Distribution Width CV 14.8 % (11.6-14.6); RBC Distribution Width SD 50.6 fl (35.1-43.9); Red Blood Count 3.39 M/mm3 (4.6-6.2)
[2018-07-08 14:35] LABS: POSITIVE COUNT NO; POSITIVE DIFFERENTIAL NO; POSITIVE MORPHOLOGY NO
[2018-07-08 14:45] LABS: AST(SGOT) 17 U/L (15-37); Alanine Aminotransfer ALT/SGPT 24 U/L (16-61); Albumin, Serum 3.3 g/dL (3.2-5.0); Alkaline Phosphatase 41 U/L (45-117); Anion Gap 7 (5-15); BUN 21 mg/dL (7-18); BUN/Creat Ratio 16.8 RATIO (10-20); Calcium,Total 8.9 mg/dL (8.5-10.1); Chloride 95 mmol/L (98-107); Creatinine, Serum 1.25 mg/dL (0.70-1.30); EST Glomerular Filtration Rate 59 mL/min (>60); Est Glom Filt Rate - Afr Amer 72 mL/min (>60); Estimated Creatinine Clearance 46.27 ml/min; Globulin 3.4 g/dL (2.2-4.2); Glucose 84 mg/dL (74-106); Protein, Total 6.7 g/dL (6.4-8.2); Sodium Level 131 mmol/L (136-145)
[2018-07-08 15:05] LABS: BNP,B-Type NATRIURETIC PEPTIDE 701.3 pg/mL (0-100)
--- NOTE | 2018-07-08 15:43 | PCM.HP.STD ---
History of Present Illness The patient is a 77 year old M [] Past Medical History Past Medical History (Chronic Problems): Chronic Problems (Last Reviewed 06/25/18 @ 13:36 by Vic Esocbar MD) Acute on chronic systolic (congestive) heart failure (Chronic) Essential (primary) hypertension (Chronic) Ischemic cardiomyopathy (Chronic) Presence of aortocoronary bypass graft (Chronic) 10/30/94 CABGx4 WYATT to LAD,SVG to first diagonal,the second diagonal,and to posterolateral branch of RCA Atherosclerotic heart disease of [place] coronary artery without angina pectoris (Chronic) 10/30/94 CABGx4 WYATT to LAD,SVG to first diagonal,the second diagonal,and to posterolateral branch of RCA Left bundle branch block (Chronic) HLD (hyperlipidemia) (Chronic) Medical History: Medical History (Last Reviewed 06/25/18 @ 13:36 by Vic Escobar MD) Acute on chronic systolic (congestive) heart failure (Chronic) I50.23 Essential (primary) hypertension (Chronic) I10 Ischemic cardiomyopathy (Chronic) I25.5 Atherosclerotic heart disease of [place] coronary artery without angina pectoris (Chronic) I25.10 10/30/94 CABGx4 WYATT to LAD,SVG to first diagonal,the second diagonal,and to posterolateral branch of RCA Left bundle branch block (Chronic) I44.7 HLD (hyperlipidemia) (Chronic) E78.5 History of rectocele Atrial flutter I48.92 Back pain M54.9 Bilateral pulmonary embolism I26.99 CKD (chronic kidney disease) N18.9 COPD (chronic obstructive pulmonary disease) J44.9 CVA (cerebral vascular accident) I63.9 Cardiac arrest I46.9 Carotid artery disease I77.9 Depression F32.9 Diverticulitis K57.92 GERD (gastroesophageal reflux disease) K21.9 Osteoarthritis M19.90 Pancreatitis K85.90 Anxiety F41.9 History of successful cardiopulmonary resuscitation (Inactive) Z92.89 Renal disease (Inactive) N28.9 Allergies Penicillins Allergy (Verified 06/25/18 12:22) Unknown Home Medications: Ambulatory Orders Medication Instructions Recorded Febuxostat [Uloric] 40 mg PO DAILY 02/12/17 Alfuzosin HCl [Alfuzosin HCl ER] 10 mg PO DAILY 06/10/18 Apixaban [Eliquis] 5 mg PO BID 06/10/18 Famotidine 40 mg PO DAILY 06/10/18 Finasteride 5 mg PO DAILY 06/10/18 Omeprazole 40 mg PO DAILY 06/10/18 Oxybutynin [Ditropan] 5 mg PO TID 06/10/18 Pravastatin [Pravachol] 80 mg PO QHS 06/10/18 Sacubitril/Valsartan 97-103 mg 1 ea PO BID 06/10/18 [Entresto 97 mg-103 mg Tablet] Vortioxetine Hydrobromide 20 mg PO DAILY 06/10/18 [Trintellix] metoprolol tartrate 100 mg tablet 100 mg PO BID tab 06/25/18 polysaccharide iron complex 150 mg 150 mg PO DAILY cap 06/25/18 iron capsule Furosemide [Lasix] 40 mg PO BID 07/08/18 Hydrocodone/Acetaminophen 1 tab PO 4X/DAY 07/08/18 [Hydrocodone-Acetamin 7.5-325] Potassium Chloride [K-Dur] 20 meq PO DAILY 07/08/18 Surgical History: Surgical History (Last Reviewed 06/25/18 @ 13:36 by Vic Escobar MD) H/O coronary artery bypass surgery (Resolved) Onset Date: 10/30/94 Z95.1 10/30/94 CABGx4 WYATT to LAD,SVG to first diagonal,the second diagonal,and to posterolateral branch of RCA Presence of aortocoronary bypass graft (Chronic) Z95.1 10/30/94 CABGx4 WYATT to LAD,SVG to first diagonal,the second diagonal,and to posterolateral branch of RCA History of esophagogastroduodenoscopy (EGD) Z98.890 History of loop recorder Onset Date: 2015 Z98.890 S/P colonoscopy Z98.890 S/P inguinal hernia repair Z98.890, Z87.19 Surgical History: coronary bypass surgery Psychiatric History: No pertinent psych hx Smoking Status: Former smoker - *Family History Maternal Family History: Family History (Last Reviewed 06/25/18 @ 13:36 by Vic Escobar MD) Father Diabetes Heart disease CVA (cerebral vascular accident) Myocardial infarction Mother Heart disease Myocardial infarction History Items: No pertinent history Paternal Family History: Family History (Last Reviewed 06/25/18 @ 13:36 by Vic Escobar MD) Father Diabetes Heart disease CVA (cerebral vascular accident) Myocardial infarction Mother Heart disease Myocardial infarction History Items: No pertinent history - Physical Exam Vital Signs Temp Pulse Resp BP Pulse Ox 97.6 F L 66 16 96/49 L 98 07/08/18 13:30 07/08/18 14:22 07/08/18 13:30 07/08/18 14:22 07/08/18 13:30 Oxygen Delivery Method Room Air Weight: 67.313 kg Body Mass Index (BMI) 23.2 Laboratory Tests Past 24 Hrs 07/08/18 07/08/18 07/08/18 14:10 14:10 14:10 WBC 4.0 L RBC 3.39 L Hgb 10.9 L Hct 31.5 L MCV 92.9 MCH 32.2 H MCHC 34.6 RDW 14.8 H RDW Differential 50.6 H Plt Count 108 L MPV 9.2 Immature Gran % (Auto) 0.000 Neut % (Auto) 54.9 Lymph % (Auto) 29.5 [place] % (Auto) 12.6 H Eos % (Auto) 3.0 Baso % (Auto) 0.0 Absolute Neuts (auto) 2.2 Absolute Lymphs (auto) 1.19 Total Counted Not Reportable Sodium 131 L Potassium 4.0 Chloride 95 L Carbon Dioxide 29.0 Anion Gap 7 BUN 21 H Creatinine 1.25 Estim Creat Clear Calc 46.27 Est GFR (MDRD) Af Amer 72 Est GFR (MDRD) Non-Af 59 L BUN/Creatinine Ratio 16.8 Glucose 84 Calcium 8.9 Total Bilirubin 1.20 H AST 17 ALT 24 Alkaline Phosphatase 41 L Troponin I < 0.015 B-Natriuretic Peptide 701.3 H Total Protein 6.7 Albumin 3.3 Globulin 3.4 Albumin/Globulin Ratio 1.0 Assessment/Plan All Active Problems (Last Reviewed 06/25/18 @ 13:36 by Vic Escobar MD) H/O coronary artery bypass surgery (Resolved 10/30/94) Nausea & vomiting (Resolved)
--- NOTE | 2018-07-08 15:54 | CASEMGMT ---
RN CM Assessment Introduced role of RN CM to patient and patient Ex Matthew Cox at bedside.? Patient is alert, [place] and getting ready to be transferred to floor. Information for DCP confirmed with Ex matthew Cox who is able?to participate in RN CM Assessment. ?Care providers, pharmacy, and demographics verified. Presentation: Low BP, Lightheaded, H/o CHF and was recently admitted for this, had ECHO with EF 15-20%, 15lb weight loss since hospital DC and has been compliant with fluid restrictions/Medications. Was DC'd with [facility] Nurse. Admit Dx: Near-Syncope, Hypotension Re-Admit: Yes, 06/10-06/13/18 for Acute Exacerbation Systolic HF Barriers/Issues: Per Ex states that Ensure was recommended and asking about how to get it, this typewriter assembler advised to discuss with hospital provider about possibly writing a prescription if recommended and covered. PCP: Jaden Farmer Chi Specialists: Cardio- Dr Escobar, Uro- Dr Stoddard, Pain Mgt- Dr Can Preferred Pharmacy: [facility] Insurance: [employer] A[employer], [facility] Rx Benefit:?Yes LNOK: Ex Matthew Cox Kurt LW/HPOA: No, Declines information offered Living Arrangements:?Lives with Ex in a mobile home, 4 steps to enter. Ex Matthew Cox states that she will be home more now and can assist patient if needed. ADL?s: Independent with ADL's, has been ambulating with walker. Transportation: Adryan Cox DME: Walker, WC, Cane, CPAP [facility]: [facility]. This typewriter assembler called Delmy at [facility] and made aware patient is getting admitted. Goal: Home with resumption of HHC, Would like assistance about receiving ensure. Ex states will be home more now to help patient. DC PLAN: Home with resumption of HHC, possible addition of HH PT. Possible CCN Referral for after HHC if indicated and patient/Ex agreeable. GUERITA Roman
--- NOTE | 2018-07-08 16:15 | PCM.HP.STD ---
<Kem Nguyen - Last Filed: 07/08/18 16:15> Problem List (1) Syncope Status: Acute (2) Debility Status: Chronic (3) COPD (chronic obstructive pulmonary disease) Status: Chronic (4) CKD (chronic kidney disease), stage III Status: Chronic (5) Systolic heart failure Status: Chronic (6) H/O coronary artery bypass surgery Status: Chronic Comment: 10/30/94 CABGx4 WYATT to LAD,SVG to first diagonal,the second diagonal,and to posterolateral branch of RCA (7) Essential (primary) hypertension Status: Chronic (8) Ischemic cardiomyopathy Status: Chronic (9) Left bundle branch block Status: Chronic (10) HLD (hyperlipidemia) Status: Chronic History of Present Illness Date of Admission: 07/08/18 Chief Complaint: syncope The patient is a 77 year old M with past medical history of systolic congestive heart failure, ischemic cardiomyopathy, coronary artery disease with prior CABG, CKD stage III, COPD, who presented to the ER with complaints of dizziness and feeling like he was going to pass out. He was sent by his home health aide as she noted he had ongoing dizziness, low blood pressure, and his lips looked blue. He was recently here with a CHF exacerbation, discharged on June 13. At that time he had an echo showing EF of 15 to 20%. Since then his weight has gone from 161 pounds to 150 pounds. He has been falling at home. Last fall was on Thursday, he became weak, his left leg was bothering him which he attributes to poor circulation, and he fell in the tub striking his side and right arm. He did not hit his head. Yesterday he underwent a stress test with Dr. Escobar with possible mild apical ischemia and cardiomyopathy. He has been dizzy since this. In the ER he was found to have low blood pressure 80/52. Ortho is were negative. EKG showed no new acute changes, old left bundle branch. Troponin was negative, BNP was somewhat elevated, much lower than last admission. Chest x-ray was unremarkable. His blood pressure has greatly improved since his initial, and he is now resting comfortably in bed. Lastly he noted he had an episode of chest pain this morning. This was a midsternal pain radiating to the left side, no radiation to the neck, jaw, arms, no diaphoresis, no shortness of breath. Currently he has no lower extremity edema. [] Past Medical History Past Medical History (Chronic Problems): Chronic Problems (Last Reviewed 06/25/18 @ 13:36 by Vic Escobar MD) Debility (Chronic) COPD (chronic obstructive pulmonary disease) (Chronic) CKD (chronic kidney disease), stage III (Chronic) Systolic heart failure (Chronic) Acute on chronic systolic (congestive) heart failure (Chronic) H/O coronary artery bypass surgery (Chronic 10/30/94) 10/30/94 CABGx4 WYATT to LAD,SVG to first diagonal,the second diagonal,and to posterolateral branch of RCA Essential (primary) hypertension (Chronic) Ischemic cardiomyopathy (Chronic) Presence of aortocoronary bypass graft (Chronic) 10/30/94 CABGx4 WYATT to LAD,SVG to first diagonal,the second diagonal,and to posterolateral branch of RCA Atherosclerotic heart disease of [place] coronary artery without angina pectoris (Chronic) 10/30/94 CABGx4 WYATT to LAD,SVG to first diagonal,the second diagonal,and to posterolateral branch of RCA Left bundle branch block (Chronic) HLD (hyperlipidemia) (Chronic) Medical History: Medical History (Last Reviewed 06/25/18 @ 13:36 by Vic Escobar MD) Acute on chronic systolic (congestive) heart failure (Chronic) I50.23 Essential (primary) hypertension (Chronic) I10 Ischemic cardiomyopathy (Chronic) I25.5 Atherosclerotic heart disease of [place] coronary artery without angina pectoris (Chronic) I25.10 10/30/94 CABGx4 WYATT to LAD,SVG to first diagonal,the second diagonal,and to posterolateral branch of RCA Left bundle branch block (Chronic) I44.7 HLD (hyperlipidemia) (Chronic) E78.5 History of rectocele Atrial flutter I48.92 Back pain M54.9 Bilateral pulmonary embolism I26.99 CKD (chronic kidney disease) N18.9 COPD (chronic obstructive pulmonary disease) J44.9 CVA (cerebral vascular accident) I63.9 Cardiac arrest I46.9 Carotid artery disease I77.9 Depression F32.9 Diverticulitis K57.92 GERD (gastroesophageal reflux disease) K21.9 Osteoarthritis M19.90 Pancreatitis K85.90 Anxiety F41.9 History of successful cardiopulmonary resuscitation (Inactive) Z92.89 Renal disease (Inactive) N28.9 Allergies Penicillins Allergy (Verified 06/25/18 12:22) Unknown Home Medications: Ambulatory Orders Medication Instructions Recorded Febuxostat [Uloric] 40 mg PO DAILY 02/12/17 Alfuzosin HCl [Alfuzosin HCl ER] 10 mg PO DAILY 06/10/18 Apixaban [Eliquis] 5 mg PO BID 06/10/18 Famotidine 40 mg PO DAILY 06/10/18 Finasteride 5 mg PO DAILY 06/10/18 Omeprazole 40 mg PO DAILY 06/10/18 Oxybutynin [Ditropan] 5 mg PO TID 06/10/18 Pravastatin [Pravachol] 80 mg PO QHS 06/10/18 Sacubitril/Valsartan 97-103 mg 1 ea PO BID 06/10/18 [Entresto 97 mg-103 mg Tablet] Vortioxetine Hydrobromide 20 mg PO DAILY 06/10/18 [Trintellix] metoprolol tartrate 100 mg tablet 100 mg PO BID tab 06/25/18 polysaccharide iron complex 150 mg 150 mg PO DAILY cap 06/25/18 iron capsule Furosemide [Lasix] 40 mg PO BID 07/08/18 Hydrocodone/Acetaminophen 1 tab PO 4X/DAY 07/08/18 [Hydrocodone-Acetamin 7.5-325] Potassium Chloride [K-Dur] 20 meq PO DAILY 07/08/18 Surgical History: Surgical History (Last Reviewed 06/25/18 @ 13:36 by Vic Escobar MD) H/O coronary artery bypass surgery (Resolved) Onset Date: 10/30/94 Z95.1 10/30/94 CABGx4 WYATT to LAD,SVG to first diagonal,the second diagonal,and to posterolateral branch of RCA Presence of aortocoronary bypass graft (Chronic) Z95.1 10/30/94 CABGx4 WYATT to LAD,SVG to first diagonal,the second diagonal,and to posterolateral branch of RCA History of esophagogastroduodenoscopy (EGD) Z98.890 History of loop recorder Onset Date: 2015 Z98.890 S/P colonoscopy Z98.890 S/P inguinal hernia repair Z98.890, Z87.19 Surgical History: coronary bypass surgery, - - Tailbone cyst removal Psychiatric History: No pertinent psych hx Lives: Spouse/ Significant Other Smoking Status: Former smoker Tobacco Use: Secondhand, Cigars Alcohol: None Drugs: None - *Family History Maternal Family History: Family History (Last Reviewed 06/25/18 @ 13:36 by Vic Escobar MD) Father Diabetes Heart disease CVA (cerebral vascular accident) Myocardial infarction Mother Heart disease Myocardial infarction History Items: No pertinent history Paternal Family History: Family History (Last Reviewed 06/25/18 @ 13:36 by Vic Escobar MD) Father Diabetes Heart disease CVA (cerebral vascular accident) Myocardial infarction Mother Heart disease Myocardial infarction History Items: No pertinent history Review of Systems Constitutional: Reports: Weakness, Fatigue. Denies: Chills, Fever, Weight Change HEENT: Denies: Head Aches, Sinus Congestion, Sinus Drainage Cardiovascular: Reports: Chest Pain, Syncope - Near syncope. Denies: Chest Pressure, Chest Tightness, Edema, Heaviness, Light Headedness, Palpitations, Paroxysmal Noc. Dyspnea Respiratory: Denies: Cough, Shortness of Breath, Shortness of breath at rest, Shortness of breath upon exertion, Sputum production, Wheezing Gastrointestinal: Denies: Abdominal Pain, Diarrhea, Nausea, Vomiting Genitourinary: Denies: Dysuria Musculoskeletal: Denies: Joint Pain, Joint Tenderness Skin: Reports: - - Bruises right arm. Denies: Lesions, Rash, Wounds Neurological: Denies: Numbness, Tingling, Focal weakness Psychiatric: Denies: Anxiety, Depression, Homicidal Ideations, Suicidal Ideations Hematologic/ Lymphatic: Denies: Easy Bruising, Easy Bleeding VTE Information - Inpt Only VTE Present on Admission: No VTE Mechan Device Prophylaxis: None VTE Pharm Prophylaxis ordered?: Yes Patient Problems: Active and Suspected Problems (Last Reviewed 06/25/18 @ 13:36 by Vic Escobar MD) Syncope (Acute) - Physical Exam General: Alert, Oriented x3, Cooperative HEENT: Atraumatic, PERRLA, EOMI, Normocephalic Neck: Supple, No JVD, Negative Carotid Bruits Lungs: Clear to auscultation, Diminished Cardiovascular: Regular rate, No murmurs Abdomen: Bowel Sounds Present, Soft, Non Tender Extremities: No edema, Capillary Refill Less than 3 Seconds Skin: No rashes, No breakdown Musculoskeletal: No Tenderness to Palpation of Joints or Extremities Neurological: Cranial nerves II-XII grossly intact Psych/Mental Status: Normal Affect, Appropriate, Alert and oriented to time, place, person, mood and affect Vital Signs Temp Pulse Resp BP Pulse Ox 98.3 F 76 16 132/61 H 97 07/08/18 16:04 07/08/18 16:04 07/08/18 16:04 07/08/18 16:04 07/08/18 16:04 Oxygen Delivery Method Room Air Weight: 150 lb 2.157 oz Body Mass Index (BMI) 23.6 Laboratory Tests Past 24 Hrs 07/08/18 07/08/18 07/08/18 14:10 14:10 14:10 WBC 4.0 L RBC 3.39 L Hgb 10.9 L Hct 31.5 L MCV 92.9 MCH 32.2 H MCHC 34.6 RDW 14.8 H RDW Differential 50.6 H Plt Count 108 L MPV 9.2 Immature Gran % (Auto) 0.000 Neut % (Auto) 54.9 Lymph % (Auto) 29.5 [place] % (Auto) 12.6 H Eos % (Auto) 3.0 Baso % (Auto) 0.0 Absolute Neuts (auto) 2.2 Absolute Lymphs (auto) 1.19 Total Counted Not Reportable Sodium 131 L Potassium 4.0 Chloride 95 L Carbon Dioxide 29.0 Anion Gap 7 BUN 21 H Creatinine 1.25 Estim Creat Clear Calc 46.27 Est GFR (MDRD) Af Amer 72 Est GFR (MDRD) Non-Af 59 L BUN/Creatinine Ratio 16.8 Glucose 84 Calcium 8.9 Total Bilirubin 1.20 H AST 17 ALT 24 Alkaline Phosphatase 41 L Troponin I < 0.015 B-Natriuretic Peptide 701.3 H Total Protein 6.7 Albumin 3.3 Globulin 3.4 Albumin/Globulin Ratio 1.0 Assessment/Plan All Active Problems (Last Reviewed 06/25/18 @ 13:36 by Vic Escobar MD) Syncope (Acute) Nausea & vomiting (Resolved) 1. Dizziness and near syncope secondary to hypotension secondary to diuretics and hypertensive medications-hold antihypertensives and diuretics - down from 161lbs to 150 since discharge. Gentle IV hydration. He also has moderate normocytic anemia which is likely contributing to his weakness, however it appears to be near baseline. Continue PO iron. 2. Chest pain-EKG without acute changes, negative troponin. Cycle enzymes. Stress test with possible apical ischemia. Consult to cardiology 3. 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 EF 15 to 20% per last echo. He is being considered for ICD placement. 4. CAD with a history of CABG. 5. CKD stage III-stable 6. COPD-stable 7. History of CVA-Eliquis and statin 8. History of PAD-ongoing left leg pain and weakness 9. History of a flutter and bilateral pulmonary emboli-on Eliquis 10. Pancytopenia - unclear etiology 11. Hyponatremia - likely 2/2 diuretics. 12. BPH - hold alfuzosin. continue proscar 13. GERD - PPI. DVT prophylaxis-Eliquis This patient was seen by Kem Nguyen PA-C under the supervision of Doctor Leticia. <Evelin Kelly - Last Filed: 07/08/18 21:28> History of Present Illness The patient is a 77 year old M [] Past Medical History Medical History: Medical History (Last Reviewed 06/25/18 @ 13:36 by Vic Escobar MD) Acute on chronic systolic (congestive) heart failure (Chronic) I50.23 Essential (primary) hypertension (Chronic) I10 Ischemic cardiomyopathy (Chronic) I25.5 Atherosclerotic heart disease of [place] coronary artery without angina pectoris (Chronic) I25.10 10/30/94 CABGx4 WYATT to LAD,SVG to first diagonal,the second diagonal,and to posterolateral branch of RCA Left bundle branch block (Chronic) I44.7 HLD (hyperlipidemia) (Chronic) E78.5 History of rectocele Atrial flutter I48.92 Back pain M54.9 Bilateral pulmonary embolism I26.99 CKD (chronic kidney disease) N18.9 COPD (chronic obstructive pulmonary disease) J44.9 CVA (cerebral vascular accident) I63.9 Cardiac arrest I46.9 Carotid artery disease I77.9 Depression F32.9 Diverticulitis K57.92 GERD (gastroesophageal reflux disease) K21.9 Osteoarthritis M19.90 Pancreatitis K85.90 Anxiety F41.9 History of successful cardiopulmonary resuscitation (Inactive) Z92.89 Renal disease (Inactive) N28.9 Allergies Penicillins Allergy (Verified 06/25/18 12:22) Unknown Surgical History: Surgical History (Last Reviewed 06/25/18 @ 13:36 by Vic Escobar MD) H/O coronary artery bypass surgery (Chronic) Onset Date: 10/30/94 Z95.1 10/30/94 CABGx4 WYATT to LAD,SVG to first diagonal,the second diagonal,and to posterolateral branch of RCA Presence of aortocoronary bypass graft (Chronic) Z95.1 10/30/94 CABGx4 WYATT to LAD,SVG to first diagonal,the second diagonal,and to posterolateral branch of RCA History of esophagogastroduodenoscopy (EGD) Z98.890 History of loop recorder Onset Date: 2015 Z98.890 S/P colonoscopy Z98.890 S/P inguinal hernia repair Z98.890, Z87.19 - *Family History Maternal Family History: Family History (Last Reviewed 06/25/18 @ 13:36 by Vic Escobar MD) Father Diabetes Heart disease CVA (cerebral vascular accident) Myocardial infarction Mother Heart disease Myocardial infarction Paternal Family History: Family History (Last Reviewed 06/25/18 @ 13:36 by Vic Escobar MD) Father Diabetes Heart disease CVA (cerebral vascular accident) Myocardial infarction Mother Heart disease Myocardial infarction - Physical Exam Vital Signs Temp Pulse Resp BP Pulse Ox 98.3 F 78 16 132/61 H 97 07/08/18 16:04 07/08/18 16:34 07/08/18 16:04 07/08/18 16:04 07/08/18 16:04 Oxygen Delivery Method Room Air Weight: 68.1 kg Body Mass Index (BMI) 23.6 Laboratory Tests Past 24 Hrs 07/08/18 07/08/18 07/08/18 14:10 14:10 14:10 WBC 4.0 L RBC 3.39 L Hgb 10.9 L Hct 31.5 L MCV 92.9 MCH 32.2 H MCHC 34.6 RDW 14.8 H RDW Differential 50.6 H Plt Count 108 L MPV 9.2 Immature Gran % (Auto) 0.000 Neut % (Auto) 54.9 Lymph % (Auto) 29.5 [place] % (Auto) 12.6 H Eos % (Auto) 3.0 Baso % (Auto) 0.0 Absolute Neuts (auto) 2.2 Absolute Lymphs (auto) 1.19 Total Counted Not Reportable Sodium 131 L Potassium 4.0 Chloride 95 L Carbon Dioxide 29.0 Anion Gap 7 BUN 21 H Creatinine 1.25 Estim Creat Clear Calc 46.27 Est GFR (MDRD) Af Amer 72 Est GFR (MDRD) Non-Af 59 L BUN/Creatinine Ratio 16.8 Glucose 84 Calcium 8.9 Total Bilirubin 1.20 H AST 17 ALT 24 Alkaline Phosphatase 41 L Troponin I < 0.015 B-Natriuretic Peptide 701.3 H Total Protein 6.7 Albumin 3.3 Globulin 3.4 Albumin/Globulin Ratio 1.0 Assessment/Plan This patient was seen in conjunction with HAWA Burrows. I have independently interviewed and examined the patient and reviewed pertinent historical, laboratory, and other data. Please refer to HAWA Burrows note for his patient's presentation, findings, and recommendations. I have reviewed and his note and concur with his documentation CC: Dizziness, near syncope, fatigue, fall HPI: 77-year-old male with past medical history of ED status post CABG, chronic atrial fibrillation, ischemic cardiomyopathy with EF of 15 to 20%, +1-2 mitral regurgitation, severe pulmonary hypertension who comes in after a fall 6 days ago and has been having progressive fatigue, dizziness and a near syncopal episode. Patient lives at home with her and has home health team following up with him. The home health nurse noted this morning that patient's oxygen saturation was 89% and he looked cyanosis. He admits to some midsternal chest discomfort that happened today with no radiation or associated nausea or vomiting or diaphoresis. He had a stress test done Thursday and feels his condition got worse after the stress test. PMHX: As stated in the HPI including CKD 3, hypertension, gout, history of COPD not on oxygen PSHx: Status post CABG, status post loop recorder, status post colonoscopy, status post inguinal repair FHX: Father had diabetes, heart disease stroke, mother had heart disease and heart attack SHX: No smoking history, no alcohol or drugs Physical Exam: Vitals: Vitals in the ED show temperature 97.6 F, heart rate 74, blood pressure 80/52, not orthostatic Gen: Looks in some discomfort, not pale, not jaundiced, appears frail CVS:HS I +II, regular, no murmurs RESP: Diminished at lung bases GI: BS present and normal, soft, nontender, no palpable organs EXT:No edema Labs: WBC count is 4.0, hemoglobin 10.9, platelet count 108, sodium 131, potassium 4.0, chloride 95, BUN 21, creatinine 1.25 ASSESSMENT: 1. Near-syncope secondary to dehydration 2. Hyponatremia 3. Hypertension, patient was hypotensive on admission 4. History of gout 5. CKD stage 3 6. CAD status post CABG, ischemic cardiomyopathy, EF 15 to 20% 7. Poor performance status converted to concurrent comorbidities Plan: Admit to PCU, monitor on telemetry Gentle IV fluids, Monitor for acute CHF Blood pressure meds well as patient is hypotensive Hold Lasix for now Cardiology consult, trend troponins Consider Palliative care on discharge Code Visit Inpatient E&M: 96902 Init Hosp L3 Procedures: 02524 Advncd Care Plan 30 Min
[2018-07-08] MEDS: APIXABAN 5 MG TABLET PO (21:16)
[2018-07-08] MEDS: Pravastatin 80 MG Tablet PO (21:16)
[2018-07-08] MEDS: 0.9% Normal Saline 1,000 ML 75 ML IV (22:03)
[2018-07-09] VITALS (13 sets, daily range): BP systolic 100–130; BP diastolic 55–77; PULSE 66–112; RESP 16–18; TEMP 36.6–37; O2SAT 93–97
[2018-07-09 04:31] LABS: Absolute Lymphocyte Count 1.21 X10^3/ul (0.83-4.51); Absolute Neutrophil Count 1.7 X10^3/uL (2.0-7.7); Basophil# 0.01 X10^3/uL; Basophil% 0.3 % (0-1); Eosinophil# 0.11 X10^3/uL; Eosinophils% 3.2 % (0-5); Hematocrit 28.3 % (40-54); Hemoglobin 9.9 g/dl (13.0-16.5); Lymphocyte # 1.21 X10^3/ul (4.0); Mean Corpuscular Hgb 32.4 pg (27.0-32.0); Mean Corpuscular Volume 92.5 fL (80-94); Mean Platelet Vol. 8.9 fl (6.2-12.0); Monocyte# 0.43 X10^3/uL; Monocyte% 12.4 % (0-10); Neutrophil # 1.69 X10^3/uL (2.7-7.7); Neutrophil % 48.8 % (47-70); Platelet Count 95 K/mm3 (150-450); RBC Distribution Width CV 14.8 % (11.6-14.6); RBC Distribution Width SD 50.4 fl (35.1-43.9); Red Blood Count 3.06 M/mm3 (4.6-6.2); White Blood Count 3.5 K/mm3 (4.4-11.0)
[2018-07-09 04:33] LABS: POSITIVE COUNT NO; POSITIVE DIFFERENTIAL NO; POSITIVE MORPHOLOGY NO
[2018-07-09 04:49] LABS: Anion Gap 7 (5-15); BUN 24 mg/dL (7-18); BUN/Creat Ratio 20.3 RATIO (10-20); Calcium,Total 8.6 mg/dL (8.5-10.1); Chloride 101 mmol/L (98-107); Creatinine, Serum 1.18 mg/dL (0.70-1.30); EST Glomerular Filtration Rate 64 mL/min (>60); Est Glom Filt Rate - Afr Amer 77 mL/min (>60); Estimated Creatinine Clearance 47.31 ml/min; Glucose 112 mg/dL (74-106); Potassium 3.9 mmol/L (3.5-5.1); Sodium Level 135 mmol/L (136-145)
[2018-07-09] MEDS: APIXABAN 5 MG TABLET PO ×2 (08:37→22:51)
[2018-07-09] MEDS: Famotidine 20 MG Tablet 40 MG PO (08:37)
[2018-07-09] MEDS: Iron Polysaccharide Complex 150 MG CAPSULE PO (08:37)
[2018-07-09] MEDS: Febuxostat 40 MG TABLET PO (08:38)
[2018-07-09] MEDS: Finasteride 5 MG Tablet PO (08:38)
[2018-07-09] MEDS: Pantoprazole Sodium 40 MG Tablet PO (08:38)
--- NOTE | 2018-07-09 12:52 | PCM.PROGNOTE ---
<Kem Nguyen - Last Filed: 07/09/18 12:52> Patient Problems: Active and Suspected Problems (Last Updated 07/09/18 @ 11:41 by Lu Chavira) Syncope (Acute) Subjective: Pt resting comfortably in bed NAD. BP improved. No increased SOB or LE edema. No LH or dizziness. BP meds held overnight. Weight is up 4 pounds, dc iv fluids. Still complains of midsternal mild chest pain. - Physical Exam General: Alert, Oriented x3, Cooperative HEENT: Atraumatic, PERRLA, EOMI, Normocephalic Neck: Supple, No JVD, Negative Carotid Bruits Lungs: Clear to auscultation, Normal air movement Cardiovascular: Regular rate, No murmurs Abdomen: Bowel Sounds Present, Soft, Non Tender Extremities: No edema, Capillary Refill Less than 3 Seconds Skin: No rashes, No breakdown Musculoskeletal: No Tenderness to Palpation of Joints or Extremities Neurological: Cranial nerves II-XII grossly intact Psych/Mental Status: Normal Affect, Appropriate, Alert and oriented to time, place, person, mood and affect Vital Signs Temp Pulse Resp BP Pulse Ox 98.3 F 94 18 130/67 H 93 07/09/18 08:35 07/09/18 12:08 07/09/18 08:35 07/09/18 08:35 07/09/18 08:35 Oxygen Delivery Method Room Air Weight: 154 lb 5.177 oz Body Mass Index (BMI) 23.6 Orthostatic Vital Signs Start: 07/09/18 03:32 Freq: q24h Status: Active Protocol: Activity Type Activity Date Activity User E-Sign Co-Sign Detail Recorded Client Recorded Date Recorded By Document 07/09/18 03:32 [facility] [id number] 07/09/18 03:34 [facility] 07/09/18 03:32 Orthostatic Vitals Standing -Blood Pressure (90/60-120/80) 104/60 -Extremity Use Left Arm -Pulse Rate (60-100) 81 Sitting -Blood Pressure (90/60-120/80) 100/55 L -Extremity Use Left Arm -Pulse Rate (60-100) 77 Lying -Blood Pressure (90/60-120/80) 120/60 -Extremity Use Left Arm -Pulse Rate (60-100) 71 Intake and Output for Last 24 Hours 07/07/18 07/08/18 07/09/18 23:59 23:59 23:59 Intake Total 740 / 740 800 / 800 Output Total 900 / 900 Balance 740 / 740 -100 / -100 Laboratory Tests Past 24 Hrs 07/08/18 07/08/18 07/08/18 14:10 14:10 14:10 WBC 4.0 L RBC 3.39 L Hgb 10.9 L Hct 31.5 L MCV 92.9 MCH 32.2 H MCHC 34.6 RDW 14.8 H RDW Differential 50.6 H Plt Count 108 L MPV 9.2 Immature Gran % (Auto) 0.000 Neut % (Auto) 54.9 Lymph % (Auto) 29.5 Price % (Auto) 12.6 H Eos % (Auto) 3.0 Baso % (Auto) 0.0 Absolute Neuts (auto) 2.2 Absolute Lymphs (auto) 1.19 Total Counted Not Reportable Sodium 131 L Potassium 4.0 Chloride 95 L Carbon Dioxide 29.0 Anion Gap 7 BUN 21 H Creatinine 1.25 Estim Creat Clear Calc 46.27 Est GFR (MDRD) Af Amer 72 Est GFR (MDRD) Non-Af 59 L BUN/Creatinine Ratio 16.8 Glucose 84 Calcium 8.9 Total Bilirubin 1.20 H AST 17 ALT 24 Alkaline Phosphatase 41 L Troponin I < 0.015 B-Natriuretic Peptide 701.3 H Total Protein 6.7 Albumin 3.3 Globulin 3.4 Albumin/Globulin Ratio 1.0 07/08/18 07/09/18 07/09/18 22:18 00:45 04:10 WBC 3.5 L RBC 3.06 L Hgb 9.9 L Hct 28.3 L MCV 92.5 MCH 32.4 H MCHC 35.0 RDW 14.8 H RDW Differential 50.4 H Plt Count 95 L MPV 8.9 Immature Gran % (Auto) 0.300 Neut % (Auto) 48.8 Lymph % (Auto) 35.0 [place] % (Auto) 12.4 H Eos % (Auto) 3.2 Baso % (Auto) 0.3 Absolute Neuts (auto) 1.7 L Absolute Lymphs (auto) 1.21 Total Counted Not Reportable Sodium Potassium Chloride Carbon Dioxide Anion Gap BUN Creatinine Estim Creat Clear Calc Est GFR (MDRD) Af Amer Est GFR (MDRD) Non-Af BUN/Creatinine Ratio Glucose Calcium Total Bilirubin AST ALT Alkaline Phosphatase Troponin I < 0.015 < 0.015 B-Natriuretic Peptide Total Protein Albumin Globulin Albumin/Globulin Ratio 07/09/18 04:10 WBC RBC Hgb Hct MCV MCH MCHC RDW RDW Differential Plt Count MPV Immature Gran % (Auto) Neut % (Auto) Lymph % (Auto) Price % (Auto) Eos % (Auto) Baso % (Auto) Absolute Neuts (auto) Absolute Lymphs (auto) Total Counted Sodium 135 L Potassium 3.9 Chloride 101 Carbon Dioxide 27.0 Anion Gap 7 BUN 24 H Creatinine 1.18 Estim Creat Clear Calc 47.31 Est GFR (MDRD) Af Amer 77 Est GFR (MDRD) Non-Af 64 BUN/Creatinine Ratio 20.3 H Glucose 112 H Calcium 8.6 Total Bilirubin AST ALT Alkaline Phosphatase Troponin I < 0.015 B-Natriuretic Peptide Total Protein Albumin Globulin Albumin/Globulin Ratio Medical Necessity - Tobacco Use Smoking Status: Former smoker Tobacco Use: Secondhand, Cigars Assessment/Plan All Active Problems (Last Updated 07/09/18 @ 11:41 by Lu Chavira) Syncope (Acute) Hx of pulmonary emphysema (Resolved) Nausea & vomiting (Resolved) 1. Dizziness and near syncope secondary to hypotension secondary to diuretics and hypertensive medications- -BP improved with lasix, antihypertensives held -weight going back up -stop IV fluids -anemia likely contributing, continue iron -not significantly below baseline however. -loop recorder interrogation this AM. -Cardiology consulted -no events on tele 2. Chest pain-EKG without acute changes, negative troponin. Cycle enzymes. Stress test with possible apical ischemia. Consult to cardiology 3. 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 EF 15 to 20% per last echo. He is being considered for ICD placement. 4. CAD with a history of CABG. 5. CKD stage III-stable 6. COPD-stable 7. History of CVA-Eliquis and statin 8. History of PAD-ongoing left leg pain and weakness 9. History of a flutter and bilateral pulmonary emboli-on Eliquis. Pt in sinus rhythm. 10. Pancytopenia - unclear etiology 11. Hyponatremia - likely 2/2 diuretics. 12. BPH - hold alfuzosin. continue proscar 13. GERD - PPI. DVT prophylaxis-Eliquis This patient was seen by Kem Nguyen PA-C under the supervision of Doctor Juana <Frederic Arias - Last Filed: 07/09/18 16:29> Subjective: Feels good. Anxious to go home. Has been up going to [place] without difficulty nor dizziness. - Physical Exam General: Alert, Cooperative HEENT: Atraumatic, Normocephalic Neck: No Nodes, Thyroid Normal Size and Texture Lungs: Clear to auscultation, Normal air movement, No rhonchi, No wheeze Cardiovascular: Regular rate, Regular Rhythm, Normal S1, Normal S2, No murmurs Abdomen: Bowel Sounds Present, Soft, Non Tender, Non-Distended, Obese Extremities: No edema, No Calf Tenderness Skin: No rashes, No breakdown Psych/Mental Status: Appropriate Vital Signs Temp Pulse Resp BP Pulse Ox 36.9 C 101 H 18 117/55 L 97 07/09/18 14:25 07/09/18 15:41 07/09/18 14:25 07/09/18 14:25 07/09/18 14:25 Oxygen Delivery Method Room Air Weight: 70 kg Body Mass Index (BMI) 23.6 Orthostatic Vital Signs Start: 07/09/18 03:32 Freq: q24h Status: Active Protocol: Activity Type Activity Date Activity User E-Sign Co-Sign Detail Recorded Client Recorded Date Recorded By Document 07/09/18 03:32 [facility] [id number] 07/09/18 03:34 [facility] 07/09/18 03:32 Orthostatic Vitals Standing -Blood Pressure (90/60-120/80) 104/60 -Extremity Use Left Arm -Pulse Rate (60-100) 81 Sitting -Blood Pressure (90/60-120/80) 100/55 L -Extremity Use Left Arm -Pulse Rate (60-100) 77 Lying -Blood Pressure (90/60-120/80) 120/60 -Extremity Use Left Arm -Pulse Rate (60-100) 71 Intake and Output for Last 24 Hours 07/07/18 07/08/18 07/09/18 23:59 23:59 23:59 Intake Total 740 / 740 1217 / 1217 Output Total 900 / 900 Balance 740 / 740 317 / 317 Laboratory Tests Past 24 Hrs 07/08/18 07/09/18 07/09/18 22:18 00:45 04:10 WBC 3.5 L RBC 3.06 L Hgb 9.9 L Hct 28.3 L MCV 92.5 MCH 32.4 H MCHC 35.0 RDW 14.8 H RDW Differential 50.4 H Plt Count 95 L MPV 8.9 Immature Gran % (Auto) 0.300 Neut % (Auto) 48.8 Lymph % (Auto) 35.0 Price % (Auto) 12.4 H Eos % (Auto) 3.2 Baso % (Auto) 0.3 Absolute Neuts (auto) 1.7 L Absolute Lymphs (auto) 1.21 Total Counted Not Reportable Sodium Potassium Chloride Carbon Dioxide Anion Gap BUN Creatinine Estim Creat Clear Calc Est GFR (MDRD) Af Amer Est GFR (MDRD) Non-Af BUN/Creatinine Ratio Glucose Calcium Troponin I < 0.015 < 0.015 07/09/18 04:10 WBC RBC Hgb Hct MCV MCH MCHC RDW RDW Differential Plt Count MPV Immature Gran % (Auto) Neut % (Auto) Lymph % (Auto) Price % (Auto) Eos % (Auto) Baso % (Auto) Absolute Neuts (auto) Absolute Lymphs (auto) Total Counted Sodium 135 L Potassium 3.9 Chloride 101 Carbon Dioxide 27.0 Anion Gap 7 BUN 24 H Creatinine 1.18 Estim Creat Clear Calc 47.31 Est GFR (MDRD) Af Amer 77 Est GFR (MDRD) Non-Af 64 BUN/Creatinine Ratio 20.3 H Glucose 112 H Calcium 8.6 Troponin I < 0.015 Assessment/Plan Patient seen and examined independently. Data reviewed. I agree with the above note by the physician administrative assistant receptionist. 1. Near syncope Secondary to orthostatic hypotension Clinically improved Per cardiology, patient can have an ICD check, patient will may have a 30-day event monitor. 2. Orthostatic hypotension Secondary to overdiuresis Clinically improved Lasix held Sucubitril/valsartan held Metoprolol resumed Code Visit Inpatient E&M: 09106 Subs Hosp L2
--- NOTE | 2018-07-09 12:55 | PN_ITS ---
<Kem Nguyen - Last Filed: 07/09/18 12:52> Patient Problems: Active and Suspected Problems (Last Updated 07/09/18 @ 11:41 by Lu Chavira) Syncope (Acute) Subjective: Pt resting comfortably in bed NAD. BP improved. No increased SOB or LE edema. No LH or dizziness. BP meds held overnight. Weight is up 4 pounds, dc iv fluids. Still complains of midsternal mild chest pain. - Physical Exam General: Alert, Oriented x3, Cooperative HEENT: Atraumatic, PERRLA, EOMI, Normocephalic Neck: Supple, No JVD, Negative Carotid Bruits Lungs: Clear to auscultation, Normal air movement Cardiovascular: Regular rate, No murmurs Abdomen: Bowel Sounds Present, Soft, Non Tender Extremities: No edema, Capillary Refill Less than 3 Seconds Skin: No rashes, No breakdown Musculoskeletal: No Tenderness to Palpation of Joints or Extremities Neurological: Cranial nerves II-XII grossly intact Psych/Mental Status: Normal Affect, Appropriate, Alert and oriented to time, place, person, mood and affect Vital Signs Temp Pulse Resp BP Pulse Ox 98.3 F 94 18 130/67 H 93 07/09/18 08:35 07/09/18 12:08 07/09/18 08:35 07/09/18 08:35 07/09/18 08:35 Oxygen Delivery Method Room Air Weight: 154 lb 5.177 oz Body Mass Index (BMI) 23.6 Orthostatic Vital Signs Start: 07/09/18 03:32 Freq: q24h Status: Active Protocol: Activity Type Activity Date Activity User E-Sign Co-Sign Detail Recorded Client Recorded Date Recorded By Document 07/09/18 03:32 [facility] [id number] 07/09/18 03:34 [facility] 07/09/18 03:32 Orthostatic Vitals Standing -Blood Pressure (90/60-120/80) 104/60 -Extremity Use Left Arm -Pulse Rate (60-100) 81 Sitting -Blood Pressure (90/60-120/80) 100/55 L -Extremity Use Left Arm -Pulse Rate (60-100) 77 Lying -Blood Pressure (90/60-120/80) 120/60 -Extremity Use Left Arm -Pulse Rate (60-100) 71 Intake and Output for Last 24 Hours 07/07/18 07/08/18 07/09/18 23:59 23:59 23:59 Intake Total 740 / 740 800 / 800 Output Total 900 / 900 Balance 740 / 740 -100 / -100 Laboratory Tests Past 24 Hrs 07/08/18 07/08/18 07/08/18 14:10 14:10 14:10 WBC 4.0 L RBC 3.39 L Hgb 10.9 L Hct 31.5 L MCV 92.9 MCH 32.2 H MCHC 34.6 RDW 14.8 H RDW Differential 50.6 H Plt Count 108 L MPV 9.2 Immature Gran % (Auto) 0.000 Neut % (Auto) 54.9 Lymph % (Auto) 29.5 [place] % (Auto) 12.6 H Eos % (Auto) 3.0 Baso % (Auto) 0.0 Absolute Neuts (auto) 2.2 Absolute Lymphs (auto) 1.19 Total Counted Not Reportable Sodium 131 L Potassium 4.0 Chloride 95 L Carbon Dioxide 29.0 Anion Gap 7 BUN 21 H Creatinine 1.25 Estim Creat Clear Calc 46.27 Est GFR (MDRD) Af Amer 72 Est GFR (MDRD) Non-Af 59 L BUN/Creatinine Ratio 16.8 Glucose 84 Calcium 8.9 Total Bilirubin 1.20 H AST 17 ALT 24 Alkaline Phosphatase 41 L Troponin I < 0.015 B-Natriuretic Peptide 701.3 H Total Protein 6.7 Albumin 3.3 Globulin 3.4 Albumin/Globulin Ratio 1.0 07/08/18 07/09/18 07/09/18 22:18 00:45 04:10 WBC 3.5 L RBC 3.06 L Hgb 9.9 L Hct 28.3 L MCV 92.5 MCH 32.4 H MCHC 35.0 RDW 14.8 H RDW Differential 50.4 H Plt Count 95 L MPV 8.9 Immature Gran % (Auto) 0.300 Neut % (Auto) 48.8 Lymph % (Auto) 35.0 [place] % (Auto) 12.4 H Eos % (Auto) 3.2 Baso % (Auto) 0.3 Absolute Neuts (auto) 1.7 L Absolute Lymphs (auto) 1.21 Total Counted Not Reportable Sodium Potassium Chloride Carbon Dioxide Anion Gap BUN Creatinine Estim Creat Clear Calc Est GFR (MDRD) Af Amer Est GFR (MDRD) Non-Af BUN/Creatinine Ratio Glucose Calcium Total Bilirubin AST ALT Alkaline Phosphatase Troponin I < 0.015 < 0.015 B-Natriuretic Peptide Total Protein Albumin Globulin Albumin/Globulin Ratio 07/09/18 04:10 WBC RBC Hgb Hct MCV MCH MCHC RDW RDW Differential Plt Count MPV Immature Gran % (Auto) Neut % (Auto) Lymph % (Auto) [place] % (Auto) Eos % (Auto) Baso % (Auto) Absolute Neuts (auto) Absolute Lymphs (auto) Total Counted Sodium 135 L Potassium 3.9 Chloride 101 Carbon Dioxide 27.0 Anion Gap 7 BUN 24 H Creatinine 1.18 Estim Creat Clear Calc 47.31 Est GFR (MDRD) Af Amer 77 Est GFR (MDRD) Non-Af 64 BUN/Creatinine Ratio 20.3 H Glucose 112 H Calcium 8.6 Total Bilirubin AST ALT Alkaline Phosphatase Troponin I < 0.015 B-Natriuretic Peptide Total Protein Albumin Globulin Albumin/Globulin Ratio Medical Necessity - Tobacco Use Smoking Status: Former smoker Tobacco Use: Secondhand, Cigars Assessment/Plan All Active Problems (Last Updated 07/09/18 @ 11:41 by Lu Chavira) Syncope (Acute) Hx of pulmonary emphysema (Resolved) Nausea & vomiting (Resolved) 1. Dizziness and near syncope secondary to hypotension secondary to diuretics and hypertensive medications- -BP improved with lasix, antihypertensives held -weight going back up -stop IV fluids -anemia likely contributing, continue iron -not significantly below baseline however. -loop recorder interrogation this AM. -Cardiology consulted -no events on tele 2. Chest pain-EKG without acute changes, negative troponin. Cycle enzymes. Stress test with possible apical ischemia. Consult to cardiology 3. 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 EF 15 to 20% per last echo. He is being considered for ICD place ment. 4. CAD with a history of CABG. 5. CKD stage III-stable 6. COPD-stable 7. History of CVA-Eliquis and statin 8. History of PAD-ongoing left leg pain and weakness 9. History of a flutter and bilateral pulmonary emboli-on Eliquis. Pt in sinus rhythm. 10. Pancytopenia - unclear etiology 11. Hyponatremia - likely 2/2 diuretics. 12. BPH - hold alfuzosin. continue proscar 13. GERD - PPI. DVT prophylaxis-Eliquis This patient was seen by Kem Nguyen PA-C under the supervision of Doctor Juana <Frederic Arias - Last Filed: 07/09/18 16:29> Subjective: Feels good. Anxious to go home. Has been up going to [place] without difficulty nor dizziness. - Physical Exam General: Alert, Cooperative HEENT: Atraumatic, Normocephalic Neck: No Nodes, Thyroid Normal Size and Texture Lungs: Clear to auscultation, Normal air movement, No rhonchi, No wheeze Cardiovascular: Regular rate, Regular Rhythm, Normal S1, Normal S2, No murmurs Abdomen: Bowel Sounds Present, Soft, Non Tender, Non-Distended, Obese Extremities: No edema, No Calf Tenderness Skin: No rashes, No breakdown Psych/Mental Status: Appropriate Vital Signs Temp Pulse Resp BP Pulse Ox 36.9 C 101 H 18 117/55 L 97 07/09/18 14:25 07/09/18 15:41 07/09/18 14:25 07/09/18 14:25 07/09/18 14:25 Oxygen Delivery Method Room Air Weight: 70 kg Body Mass Index (BMI) 23.6 Orthostatic Vital Signs Start: 07/09/18 03:32 Freq: q24h Status: Active Protocol: Activity Type Activity Date Activity User E-Sign Co-Sign Detail Recorded Client Recorded Date Recorded By Document 07/09/18 03:32 [facility] [id number] 07/09/18 03:34 [facility] 07/09/18 03:32 Orthostatic Vitals Standing -Blood Pressure (90/60-120/80) 104/60 -Extremity Use Left Arm -Pulse Rate (60-100) 81 Sitting -Blood Pressure (90/60-120/80) 100/55 L -Extremity Use Left Arm -Pulse Rate (60-100) 77 Lying -Blood Pressure (90/60-120/80) 120/60 -Extremity Use Left Arm -Pulse Rate (60-100) 71 Intake and Output for Last 24 Hours 07/07/18 07/08/18 07/09/18 23:59 23:59 23:59 Intake Total 740 / 740 1217 / 1217 Output Total 900 / 900 Balance 740 / 740 317 / 317 Laboratory Tests Past 24 Hrs 07/08/18 07/09/18 07/09/18 22:18 00:45 04:10 WBC 3.5 L RBC 3.06 L Hgb 9.9 L Hct 28.3 L MCV 92.5 MCH 32.4 H MCHC 35.0 RDW 14.8 H RDW Differential 50.4 H Plt Count 95 L MPV 8.9 Immature Gran % (Auto) 0.300 Neut % (Auto) 48.8 Lymph % (Auto) 35.0 [place] % (Auto) 12.4 H Eos % (Auto) 3.2 Baso % (Auto) 0.3 Absolute Neuts (auto) 1.7 L Absolute Lymphs (auto) 1.21 Total Counted Not Reportable Sodium Potassium Chloride Carbon Dioxide Anion Gap BUN Creatinine Estim Creat Clear Calc Est GFR (MDRD) Af Amer Est GFR (MDRD) Non-Af BUN/Creatinine Ratio Glucose Calcium Troponin I < 0.015 < 0.015 07/09/18 04:10 WBC RBC Hgb Hct MCV MCH MCHC RDW RDW Differential Plt Count MPV Immature Gran % (Auto) Neut % (Auto) Lymph % (Auto) [place] % (Auto) Eos % (Auto) Baso % (Auto) Absolute Neuts (auto) Absolute Lymphs (auto) Total Counted Sodium 135 L Potassium 3.9 Chloride 101 Carbon Dioxide 27.0 Anion Gap 7 BUN 24 H Creatinine 1.18 Estim Creat Clear Calc 47.31 Est GFR (MDRD) Af Amer 77 Est GFR (MDRD) Non-Af 64 BUN/Creatinine Ratio 20.3 H Glucose 112 H Calcium 8.6 Troponin I < 0.015 Assessment/Plan Patient seen and examined independently. Data reviewed. I agree with the above note by the physician fleet administrative assistant. 1. Near syncope * Secondary to orthostatic hypotension * Clinically improved * Per cardiology, patient can have an ICD check, patient will may have a 30-day event monitor. 2. Orthostatic hypotension * Secondary to overdiuresis * Clinically improved * Lasix held * Sucubitril/valsartan held * Metoprolol resumed Code Visit Inpatient E&M: 65264 Subs Hosp L2
--- NOTE | 2018-07-09 13:37 | PCM.CONS.C ---
<Delmy Jasso M - Last Filed: 07/09/18 13:37> Problem List (1) Hx of pulmonary emphysema Status: Resolved (2) Syncope Status: Acute (3) Systolic heart failure Status: Chronic (4) Essential (primary) hypertension Status: Chronic (5) Atherosclerotic heart disease of seminole coronary artery without angina pectoris Status: Chronic Comment: 10/30/94 CABGx4 WYATT to LAD,SVG to first diagonal,the second diagonal,and to posterolateral branch of RCA (6) Left bundle branch block Status: Chronic (7) HLD (hyperlipidemia) Status: Chronic Reason for Consult Date of Consultation: 07/09/18 History of Present Illness: The patient is a 77 year old M [with a history of coronary artery disease with bypass surgery in 1994 with LAD, SVG to the first diagonal, SVG to the second diagonal and posterior lateral of the RCA. He also has a history of ischemic cardiomyopathy, atrial fibrillation, left bundle branch block, hypertension, hyperlipidemia and a history of PE in the past. Patient was hospitalized on June 13, 2018 for progressive shortness of breath and weight gain he was noted to have acute on chronic congestive heart failure. His BNP was greater than 5000. Echocardiogram at that time demonstrated an ejection fraction of 15 to 20% with stage II diastolic dysfunction, severe global hypokinesis and 1-2+ mitral regurg with pulmonary systolic pressure of 55 mmHg. When compared to echocardiogram from 2014 his EF had decreased. Previously was 30%. He was discharged home with metoprolol, Entresto and oral diuretics. He presented to the emergency room on July 08, 2018 for near syncope. Patient noted that he felt like he was going to pass out. He also noted that he was having low blood pressure readings. He was noted to be orthostatic positive. It was also noted that he had an 11 pound weight loss since June 13, 2018. Talking with and patient patient had been feeling lightheaded and dizzy over the last week. They had also noted that prior to his hospitalization in early June that his legs were swollen, they note that he does no longer have lower extremity edema. He has not had any chest discomfort or worsening shortness of breath. Although he does state that he does not do much activity did become short of breath. He does complain of fatigue and leg weakness. He does need to ambulate with a walker. Patient did have a loop recorder placed in 2014 for near syncope. He had a stress test on July 07 in which his blood pressure was noted to be normotensive at that time. Stress test demonstrated myocardial perfusion with no obvious ischemia noted. Previous small apical infarct cannot be excluded. Mild apical ischemia cannot be completely excluded. Cardiomyopathy is present. The plan from our office was after stress test was completed to evaluate for possible PALS SPECIALIST ICD with his decrease in his ejection fraction and his left bundle branch block. Past Medical History Allergies/Adverse Reactions: Allergies Penicillins Allergy (Verified 06/25/18 12:22) Unknown Home Medications: Ambulatory Orders Medication Instructions Recorded Febuxostat [Uloric] 40 mg PO DAILY 02/12/17 Alfuzosin HCl [Alfuzosin HCl ER] 10 mg PO DAILY 06/10/18 Apixaban [Eliquis] 5 mg PO BID 06/10/18 Famotidine 40 mg PO DAILY 06/10/18 Finasteride 5 mg PO DAILY 06/10/18 Omeprazole 40 mg PO DAILY 06/10/18 Oxybutynin [Ditropan] 5 mg PO TID 06/10/18 Pravastatin [Pravachol] 80 mg PO QHS 06/10/18 Sacubitril/Valsartan 97-103 mg 1 ea PO BID 06/10/18 [Entresto 97 mg-103 mg Tablet] Vortioxetine Hydrobromide 20 mg PO DAILY 06/10/18 [Trintellix] metoprolol tartrate 100 mg tablet 100 mg PO BID tab 06/25/18 polysaccharide iron complex 150 mg 150 mg PO DAILY cap 06/25/18 iron capsule Furosemide [Lasix] 40 mg PO BID 07/08/18 Hydrocodone/Acetaminophen 1 tab PO 4X/DAY 07/08/18 [Hydrocodone-Acetamin 7.5-325] Potassium Chloride [K-Dur] 20 meq PO DAILY 07/08/18 Past Medical History (Chronic Problems): Chronic Problems (Last Updated 07/09/18 @ 11:41 by Lu Chavira) Status post placement of implantable loop recorder (Chronic) Debility (Chronic) COPD (chronic obstructive pulmonary disease) (Chronic) CKD (chronic kidney disease), stage III (Chronic) Systolic heart failure (Chronic) Acute on chronic systolic (congestive) heart failure (Chronic) H/O coronary artery bypass surgery (Chronic 10/30/94) 10/30/94 CABGx4 WYATT to LAD,SVG to first diagonal,the second diagonal,and to posterolateral branch of RCA Essential (primary) hypertension (Chronic) Ischemic cardiomyopathy (Chronic) Presence of aortocoronary bypass graft (Chronic) 10/30/94 CABGx4 WYATT to LAD,SVG to first diagonal,the second diagonal,and to posterolateral branch of RCA Atherosclerotic heart disease of seminole coronary artery without angina pectoris (Chronic) 10/30/94 CABGx4 WYATT to LAD,SVG to first diagonal,the second diagonal,and to posterolateral branch of RCA Left bundle branch block (Chronic) HLD (hyperlipidemia) (Chronic) Surgical History: coronary bypass surgery, - - Tailbone cyst removal Psychiatric History: No pertinent psych hx - *Family History Maternal Family History: Family History (Last Reviewed 06/25/18 @ 13:36 by Vic Escobar MD) Father Diabetes Heart disease CVA (cerebral vascular accident) Myocardial infarction Mother Heart disease Myocardial infarction History Items: No pertinent history Paternal Family History: Family History (Last Reviewed 06/25/18 @ 13:36 by Vic Escobar MD) Father Diabetes Heart disease CVA (cerebral vascular accident) Myocardial infarction Mother Heart disease Myocardial infarction History Items: No pertinent history Lives: Spouse/ Significant Other Smoking Status: Former smoker Tobacco Use: Secondhand, Cigars Alcohol: None Drugs: None Review of Systems - Review of Systems General: Reports: Fatigue, Weakness, Decreased Appetite HEENT: Denies: Vision Change, Blurred Vision Cardiovascular: Reports: Shortness of Breath, Shortness of Breath with Exertion, Peripheral Edema, Lightheadedness, Dizziness, Near Syncope, Orthostatic Symptoms. Denies: Chest Discomfort, Orthopnea Respiratory: Denies: Cough Gastrointestinal: Denies: Indigestion, Abdominal Discomfort, Diarrhea Muscoloskeletal: Reports: Muscle Weakness Neurological: Reports: Dizziness, Weakness. Denies: Confusion Objective: Vital Signs Temp Pulse Resp BP Pulse Ox 98.3 F 94 18 130/67 H 93 07/09/18 08:35 07/09/18 12:08 07/09/18 08:35 07/09/18 08:35 07/09/18 08:35 Oxygen Delivery Method Room Air Weight: 154 lb 5.177 oz Body Mass Index (BMI) 23.6 Orthostatic Vital Signs Start: 05/31/19 03:32 Freq: q24h Status: Active Protocol: Activity Type Activity Date Activity User E-Sign Co-Sign Detail Recorded Client Recorded Date Recorded By Document 07/09/18 03:32 [facility] [id number] 07/09/18 03:34 [facility] 07/09/18 03:32 Orthostatic Vitals Standing -Blood Pressure (90/60-120/80 mm Hg) 104/60 -Extremity Use Left Arm -Pulse Rate (60-100 beats/min) 81 Sitting -Blood Pressure (90/60-120/80 mm Hg) 100/55 L -Extremity Use Left Arm -Pulse Rate (60-100 beats/min) 77 Lying -Blood Pressure (90/60-120/80 mm Hg) 120/60 -Extremity Use Left Arm -Pulse Rate (60-100 beats/min) 71 Intake and Output for Last 24 Hours 07/07/18 07/08/18 07/09/18 23:59 23:59 23:59 Intake Total 740 / 740 1217 / 1217 Output Total 900 / 900 Balance 740 / 740 317 / 317 General: Healthy Appearing, Awake, Alert, Oriented x 3, Cooperative, No Acute Distress HEENT: Atraumatic, Normocephalic, PERRL, EOMI, Sclera Non Icteric Oral: Moist Mucosa Neck: Supple, No JVD Lungs: Clear to auscultation Cardiovascular: Regular Rhythm, Normal S1, Normal S2, Positive S3 Vascular: No Carotid Bruits, Decreased R Posterior Tibial Pulse, Decreased L Posterior Tibial Pulse Abdomen: Bowel Sounds Present, Soft, Non Tender Extremities: No edema Neurological: CN II-XII Intact Psych/Mental Status: Appropriate 07/08/18 14:10: WBC 4.0 L, RBC 3.39 L, Hgb 10.9 L, Hct 31.5 L, MCV 92.9, MCH 32.2 H, MCHC 34.6, RDW 14.8 H, RDW Differential 50.6 H, Plt Count 108 L, MPV 9.2, Immature Gran % (Auto) 0.000, Neut % (Auto) 54.9, Lymph % (Auto) 29.5, Mora % (Auto) 12.6 H, Eos % (Auto) 3.0, Baso % (Auto) 0.0, Absolute Neuts (auto) 2.2, Total Counted Not Reportable 07/08/18 14:10: Sodium 131 L, Potassium 4.0, Chloride 95 L, Carbon Dioxide 29.0, Anion Gap 7, BUN 21 H, Creatinine 1.25, Est GFR (MDRD) Af Amer 72, Est GFR (MDRD) Non-Af 59 L, BUN/Creatinine Ratio 16.8, Glucose 84, Calcium 8.9, Total Bilirubin 1.20 H, Troponin I < 0.015 07/08/18 14:10: B-Natriuretic Peptide 701.3 H 07/08/18 22:18: Troponin I < 0.015 07/09/18 00:45: Troponin I < 0.015 07/09/18 04:10: WBC 3.5 L, RBC 3.06 L, Hgb 9.9 L, Hct 28.3 L, MCV 92.5, MCH 32.4 H, MCHC 35.0, RDW 14.8 H, RDW Differential 50.4 H, Plt Count 95 L, MPV 8.9, Immature Gran % (Auto) 0.300, Neut % (Auto) 48.8, Lymph % (Auto) 35.0, Mora % (Auto) 12.4 H, Eos % (Auto) 3.2, Baso % (Auto) 0.3, Absolute Neuts (auto) 1.7 L, Total Counted Not Reportable 07/09/18 04:10: Sodium 135 L, Potassium 3.9, Chloride 101, Carbon Dioxide 27.0, Anion Gap 7, BUN 24 H, Creatinine 1.18, Est GFR (MDRD) Af Amer 77, Est GFR (MDRD) Non-Af 64, BUN/Creatinine Ratio 20.3 H, Glucose 112 H, Calcium 8.6, Troponin I < 0.015 Rhythm: EKG: ECHO: Stress Test: Cardiac Cath: PCI: CT Surgery: Holter monitor: EPS: PPM: CXR: Chest CT Scan: Assessment/Plan 1. Syncope: This could be related to his orthostatic positive blood pressure readings, he could have been dehydrated with his recent weight loss from his hospitalization for CHF. He was hydrated, blood pressures have improved. We did interrogate his loop recorder, unfortunately his loop recorder reached end-of-life on July 05, 2018. So his episode yesterday was not recorded. Prior to that he was noted to have episodes of bradycardia that did correlate with bigeminy. No significant pauses were noted. It would be reasonable to discharge patient home with a 30-day event monitor to continue to monitor arrhythmias. Patient is in the process of being worked up for an outpatient PALS SPECIALIST ICD device. Would recommend continue work-up of this. 2. Congestive heart failure: Patient's diuretics were held due to concerns over dehydration. In addition his Entresto and beta-jenae were also held. Would like to resume his medications slowly. To see if his blood pressure tolerates this. We will restart his beta-jenae in addition to his Entresto. Then we will consider restarting his oral Lasix. He may need to be discharged home in a smaller dose of this. 3. Coronary artery disease with history of bypass surgery: Patient had a recent stress test, no obvious ischemia was noted. Recommend restarting his cardiac medications. He does not have any symptoms of angina at this time. 4. Hypertension: Would recommend resuming patient's metoprolol and Entresto. We will continue to follow closely. If patient's tolerating we will then restart his Lasix at a lower dose at discharge. 5. Hyperlipidemia: Patient will continue with his current outpatient medication. 6. Left bundle branch block: With patient's near syncope, left bundle branch block and known cardiomyopathy recommend continued work-up for possible PALS SPECIALIST ICD placement this can be done on an outpatient basis. This patient has been discussed and seen in conjunction with Dr. White. <[facility] White - Last Filed: 07/09/18 16:58> Reason for Consult History of Present Illness: The patient is a 77 year old M [] Past Medical History - *Family History Maternal Family History: Family History (Last Reviewed 06/25/18 @ 13:36 by Vic Escobar MD) Father Diabetes Heart disease CVA (cerebral vascular accident) Myocardial infarction Mother Heart disease Myocardial infarction Paternal Family History: Family History (Last Reviewed 06/25/18 @ 13:36 by Vic Escobar MD) Father Diabetes Heart disease CVA (cerebral vascular accident) Myocardial infarction Mother Heart disease Myocardial infarction Objective: Vital Signs Temp Pulse Resp BP Pulse Ox 98.4 F 101 H 18 117/55 L 97 07/09/18 14:25 07/09/18 15:41 07/09/18 14:25 07/09/18 14:25 07/09/18 14:25 Oxygen Delivery Method Room Air Weight: 154 lb 5.177 oz Body Mass Index (BMI) 23.6 Orthostatic Vital Signs Start: 07/09/18 03:32 Freq: q24h Status: Active Protocol: Activity Type Activity Date Activity User E-Sign Co-Sign Detail Recorded Client Recorded Date Recorded By Document 07/09/18 03:32 [facility] [id number] 07/09/18 03:34 [facility] 07/09/18 03:32 Orthostatic Vitals Standing -Blood Pressure (90/60-120/80 mm Hg) 104/60 -Extremity Use Left Arm -Pulse Rate (60-100 beats/min) 81 Sitting -Blood Pressure (90/60-120/80 mm Hg) 100/55 L -Extremity Use Left Arm -Pulse Rate (60-100 beats/min) 77 Lying -Blood Pressure (90/60-120/80 mm Hg) 120/60 -Extremity Use Left Arm -Pulse Rate (60-100 beats/min) 71 Intake and Output for Last 24 Hours 07/07/18 07/08/18 07/09/18 23:59 23:59 23:59 Intake Total 740 / 740 1217 / 1217 Output Total 900 / 900 Balance 740 / 740 317 / 317 07/08/18 22:18: Troponin I < 0.015 07/09/18 00:45: Troponin I < 0.015 07/09/18 04:10: WBC 3.5 L, RBC 3.06 L, Hgb 9.9 L, Hct 28.3 L, MCV 92.5, MCH 32.4 H, MCHC 35.0, RDW 14.8 H, RDW Differential 50.4 H, Plt Count 95 L, MPV 8.9, Immature Gran % (Auto) 0.300, Neut % (Auto) 48.8, Lymph % (Auto) 35.0, Mora % (Auto) 12.4 H, Eos % (Auto) 3.2, Baso % (Auto) 0.3, Absolute Neuts (auto) 1.7 L, Total Counted Not Reportable 07/09/18 04:10: Sodium 135 L, Potassium 3.9, Chloride 101, Carbon Dioxide 27.0, Anion Gap 7, BUN 24 H, Creatinine 1.18, Est GFR (MDRD) Af Amer 77, Est GFR (MDRD) Non-Af 64, BUN/Creatinine Ratio 20.3 H, Glucose 112 H, Calcium 8.6, Troponin I < 0.015 Rhythm: EKG: ECHO: Stress Test: Cardiac Cath: PCI: CT Surgery: Holter monitor: EPS: PPM: CXR: Chest CT Scan: Assessment/Plan Addendum: The patient's case was discussed and reviewed with HAWA Hoang. The patient was interviewed and evaluated independently. The patient has undergone recent hospitalization and noninvasive evaluation including transthoracic echocardiogram and exercise tolerance test/nuclear imaging study as previously noted. His medications were adjusted. He notes at home he felt as if he may lose consciousness but did not. He was brought to the emergency department for evaluation. There were concerns of possible orthostasis related to his recent diuresis and weight loss bringing out hypotensive episodes. He has been monitored in the hospital. With adjustment of medications primarily holding any antihypertensive therapy and diuretic therapy he has felt better. His cardiac enzyme profile has remained negative. His implantable loop recorder was interrogated and was found to have battery depletion and could not provide any additional information. He has not demonstrated ongoing cardiac dysrhythmias on telemetry thus far. His examination at the moment demonstrates his lungs to appear clear and his cardiac rhythm appears to be regular at this time. His lower extremities demonstrate no obvious ongoing edema. At the present time there are concerns that the patient's symptoms may have been related to his recent diuresis, intravascular volume depletion, weight loss, and orthostasis There is no evidence of underlying acute coronary syndrome or augmentation of an underlying acute cardiac dysrhythmia to explain his event. There is been no other noncardiovascular issues noted to explain his event. At the present time he will continue to be monitored. His cardiovascular medications will be reintroduced gradually at lower doses. His vital signs be followed. His volume status will be followed. He will eventually need to be placed back on a diuretic to avoid subsequent volume overload. Hopefully, if he has no other adverse events, and remains symptomatically and hemodynamically stable on adjusted dose medication, he will be able to be released home in the near future. At that time will be reasonable, especially since his implantable loop recorder is nonfunctioning, to place the patient on a 30-day ambulatory event monitor to to continue to monitor his cardiac rhythm. He may still need to be considered for future by [employer] ICD PALS SPECIALIST therapy. Comment: The above was discussed and reviewed with the patient.
--- NOTE | 2018-07-09 13:45 | CON.PCM_ITS ---
<Delym Jasso M - Last Filed: 07/09/18 13:37> Problem List (1) Hx of pulmonary emphysema Status: Resolved (2) Syncope Status: Acute (3) Systolic heart failure Status: Chronic (4) Essential (primary) hypertension Status: Chronic (5) Atherosclerotic heart disease of [place] coronary artery without angina pectoris Status: Chronic Comment: 10/30/94 CABGx4 WYATT to LAD,SVG to first diagonal,the second diagonal,and to posterolateral branch of RCA (6) Left bundle branch block Status: Chronic (7) HLD (hyperlipidemia) Status: Chronic Reason for Consult Date of Consultation: 07/09/18 History of Present Illness: The patient is a 77 year old M [with a history of coronary artery disease with bypass surgery in 1994 with LAD, SVG to the first diagonal, SVG to the second diagonal and posterior lateral of the RCA. He also has a history of ischemic cardiomyopathy, atrial fibrillation, left bundle branch block, hypertension, hyperlipidemia and a history of PE in the past. Patient was hospitalized on June 13, 2018 for progressive shortness of breath and weight gain he was noted to have acute on chronic congestive heart failure. His BNP was greater than 5000. Echocardiogram at that time demonstrated an ejection fraction of 15 to 20% with stage II diastolic dysfunction, severe global hypokinesis and 1-2+ mitral regurg with pulmonary systolic pressure of 55 mmHg. When compared to echocardiogram from 2014 his EF had decreased. Previously was 30%. He was discharged home with metoprolol, Entresto and oral diuretics. He presented to the emergency room on July 08, 2018 for near syncope. Patient noted that he felt like he was going to pass out. He also noted that he was having low blood pressure readings. He was noted to be orthostatic positive. It was also noted that he had an 11 pound weight loss since June 13, 2018. Talking with and patient patient had been feeling lightheaded and dizzy over the last week. They had also noted that prior to his hospitalization in early June that his legs were swollen, they note that he does no longer have lower extremity edema. He has not had any chest discomfort or worsening shortness of breath. Although he does state that he does not do much activity did become short of breath. He does complain of fatigue and leg weakness. He does need to ambulate with a walker. Patient did have a loop recorder placed in 2014 for near syncope. He had a stress test on July 07 in which his blood pressure was noted to be normotensive at that time. Stress test demonstrated myocardial perfusion with no obvious ischemia noted. Previous small apical infarct cannot be excluded. Mild apical ischemia cannot be completely excluded. Cardiomyopathy is present. The plan from our office was after stress test was completed to evaluate for possible HAND PLUG SHAPER ICD with his decrease in his ejection fraction and his left bundle branch block. Past Medical History Allergies/Adverse Reactions: Allergies Penicillins Allergy (Verified 06/25/18 12:22) Unknown Home Medications: Ambulatory Orders Medication Instructions Recorded Febuxostat [Uloric] 40 mg PO DAILY 02/12/17 Alfuzosin HCl [Alfuzosin HCl ER] 10 mg PO DAILY 06/10/18 Apixaban [Eliquis] 5 mg PO BID 06/10/18 Famotidine 40 mg PO DAILY 06/10/18 Finasteride 5 mg PO DAILY 06/10/18 Omeprazole 40 mg PO DAILY 06/10/18 Oxybutynin [Ditropan] 5 mg PO TID 06/10/18 Pravastatin [Pravachol] 80 mg PO QHS 06/10/18 Sacubitril/Valsartan 97-103 mg 1 ea PO BID 06/10/18 [Entresto 97 mg-103 mg Tablet] Vortioxetine Hydrobromide 20 mg PO DAILY 06/10/18 [Trintellix] metoprolol tartrate 100 mg tablet 100 mg PO BID tab 06/25/18 polysaccharide iron complex 150 mg 150 mg PO DAILY cap 06/25/18 iron capsule Furosemide [Lasix] 40 mg PO BID 07/08/18 Hydrocodone/Acetaminophen 1 tab PO 4X/DAY 07/08/18 [Hydrocodone-Acetamin 7.5-325] Potassium Chloride [K-Dur] 20 meq PO DAILY 07/08/18 Past Medical History (Chronic Problems): Chronic Problems (Last Updated 07/09/18 @ 11:41 by Lu Chavira) Status post placement of implantable loop recorder (Chronic) Debility (Chronic) COPD (chronic obstructive pulmonary disease) (Chronic) CKD (chronic kidney disease), stage III (Chronic) Systolic heart failure (Chronic) Acute on chronic systolic (congestive) heart failure (Chronic) H/O coronary artery bypass surgery (Chronic 10/30/94) 10/30/94 CABGx4 WYATT to LAD,SVG to first diagonal,the second diagonal,and to p osterolateral branch of RCA Essential (primary) hypertension (Chronic) Ischemic cardiomyopathy (Chronic) Presence of aortocoronary bypass graft (Chronic) 10/30/94 CABGx4 WYATT to LAD,SVG to first diagonal,the second diagonal,and to posterolateral branch of RCA Atherosclerotic heart disease of [place] coronary artery without angina pectoris (Chronic) 10/30/94 CABGx4 WYATT to LAD,SVG to first diagonal,the second diagonal,and to posterolateral branch of RCA Left bundle branch block (Chronic) HLD (hyperlipidemia) (Chronic) Surgical History: coronary bypass surgery, - - Tailbone cyst removal Psychiatric History: No pertinent psych hx - *Family History Maternal Family History: Family History (Last Reviewed 06/25/18 @ 13:36 by Vic Escobar MD) Father Diabetes Heart disease CVA (cerebral vascular accident) Myocardial infarction Mother Heart disease Myocardial infarction History Items: No pertinent history Paternal Family History: Family History (Last Reviewed 06/25/18 @ 13:36 by Vic Escobar MD) Father Diabetes Heart disease CVA (cerebral vascular accident) Myocardial infarction Mother Heart disease Myocardial infarction History Items: No pertinent history Lives: Spouse/ Significant Other Smoking Status: Former smoker Tobacco Use: Secondhand, Cigars Alcohol: None Drugs: None Review of Systems - Review of Systems General: Reports: Fatigue, Weakness, Decreased Appetite HEENT: Denies: Vision Change, Blurred Vision Cardiovascular: Reports: Shortness of Breath, Shortness of Breath with Exertion, Peripheral Edema, Lightheadedness, Dizziness, Near Syncope, Orthostatic Symptoms. Denies: Chest Discomfort, Orthopnea Respiratory: Denies: Cough Gastrointestinal: Denies: Indigestion, Abdominal Discomfort, Diarrhea Muscoloskeletal: Reports: Muscle Weakness Neurological: Reports: Dizziness, Weakness. Denies: Confusion Objective: Vital Signs Temp Pulse Resp BP Pulse Ox 98.3 F 94 18 130/67 H 93 07/09/18 08:35 07/09/18 12:08 07/09/18 08:35 07/09/18 08:35 07/09/18 08:35 Oxygen Delivery Method Room Air Weight: 154 lb 5.177 oz Body Mass Index (BMI) 23.6 Orthostatic Vital Signs Start: 07/09/18 03:32 Freq: q24h Status: Active Protocol: Activity Type Activity Date Activity User E-Sign Co-Sign Detail Recorded Client Recorded Date Recorded By Document 07/09/18 03:32 [facility] [id number] 07/09/18 03:34 [facility] 07/09/18 03:32 Orthostatic Vitals Standing -Blood Pressure (90/60-120/80 mm Hg) 104/60 -Extremity Use Left Arm -Pulse Rate (60-100 beats/min) 81 Sitting -Blood Pressure (90/60-120/80 mm Hg) 100/55 L -Extremity Use Left Arm -Pulse Rate (60-100 beats/min) 77 Lying -Blood Pressure (90/60-120/80 mm Hg) 120/60 -Extremity Use Left Arm -Pulse Rate (60-100 beats/min) 71 Intake and Output for Last 24 Hours 07/07/18 07/08/18 07/09/18 23:59 23:59 23:59 Intake Total 740 / 740 1217 / 1217 Output Total 900 / 900 Balance 740 / 740 317 / 317 General: Healthy Appearing, Awake, Alert, Oriented x 3, Cooperative, No Acute Distress HEENT: Atraumatic, Normocephalic, PERRL, EOMI, Sclera Non Icteric Oral: Moist Mucosa Neck: Supple, No JVD Lungs: Clear to auscultation Cardiovascular: Regular Rhythm, Normal S1, Normal S2, Positive S3 Vascular: No Carotid Bruits, Decreased R Posterior Tibial Pulse, Decreased L Posterior Tibial Pulse Abdomen: Bowel Sounds Present, Soft, Non Tender Extremities: No edema Neurological: CN II-XII Intact Psych/Mental Status: Appropriate 07/08/18 14:10: WBC 4.0 L, RBC 3.39 L, Hgb 10.9 L, Hct 31.5 L, MCV 92.9, MCH 32.2 H, MCHC 34.6, RDW 14.8 H, RDW Differential 50.6 H, Plt Count 108 L, MPV 9.2, Immature Gran % (Auto) 0.000, Neut % (Auto) 54.9, Lymph % (Auto) 29.5, Clinch % (Auto) 12.6 H, Eos % (Auto) 3.0, Baso % (Auto) 0.0, Absolute Neuts (auto) 2.2, Total Counted Not Reportable 07/08/18 14:10: Sodium 131 L, Potassium 4.0, Chloride 95 L, Carbon Dioxide 29.0, Anion Gap 7, BUN 21 H, Creatinine 1.25, Est GFR (MDRD) Af Amer 72, Est GFR (MDRD) Non-Af 59 L, BUN/Creatinine Ratio 16.8, Glucose 84, Calcium 8.9, Total Bilirubin 1.20 H, Troponin I < 0.015 07/08/18 14:10: B-Natriuretic Peptide 701.3 H 07/08/18 22:18: Troponin I < 0.015 07/09/18 00:45: Troponin I < 0.015 07/09/18 04:10: WBC 3.5 L, RBC 3.06 L, Hgb 9.9 L, Hct 28.3 L, MCV 92.5, MCH 32.4 H, MCHC 35.0, RDW 14.8 H, RDW Differential 50.4 H, Plt Count 95 L, MPV 8.9, Immature Gran % (Auto) 0.300, Neut % (Auto) 48.8, Lymph % (Auto) 35.0, Clinch % (Auto) 12.4 H, Eos % (Auto) 3.2, Baso % (Auto) 0.3, Absolute Neuts (auto) 1.7 L, Total Counted Not Reportable 07/09/18 04:10: Sodium 135 L, Potassium 3.9, Chloride 101, Carbon Dioxide 27.0, Anion Gap 7, BUN 24 H, Creatinine 1.18, Est GFR (MDRD) Af Amer 77, Est GFR (MDRD) Non-Af 64, BUN/Creatinine Ratio 20.3 H, Glucose 112 H, Calcium 8.6, Troponin I < 0.015 Rhythm: EKG: ECHO: Stress Test: Cardiac Cath: PCI: CT Surgery: Holter monitor: EPS: PPM: CXR: Chest CT Scan: Assessment/Plan 1. Syncope: This could be related to his orthostatic positive blood pressure readings, he could have been dehydrated with his recent weight loss from his hospitalization for CHF. He was hydrated, blood pressures have improved. We did interrogate his loop recorder, unfortunately his loop recorder reached end-of-life on July 05, 2018. So his episode yesterday was not recorded. Prior to that he was noted to have episodes of bradycardia that did correlate with bigeminy. No significant pauses were noted. It would be reasonable to discharge patient home with a 30-day event monitor to continue to monitor arrhythmias. Patient is in the process of being worked up for an outpatient HAND PLUG SHAPER ICD device. Would recommend continue work-up of this. 2. Congestive heart failure: Patient's diuretics were held due to concerns over dehydration. In addition his Entresto and beta-jenae were also held. Would like to resume his medications slowly. To see if his blood pressure tolerates this. We will restart his beta- jenae in addition to his Entresto. Then we will consider restarting his oral Lasix. He may need to be discharged home in a smaller dose of this. 3. Coronary artery disease with history of bypass surgery: Patient had a recent stress test, no obvious ischemia was noted. Recommend restarting his cardiac medications. He does not have any symptoms of angina at this time. 4. Hypertension: Would recommend resuming patient's metoprolol and Entresto. We will continue to follow closely. If patient's tolerating we will then restart his Lasix at a lower dose at discharge. 5. Hyperlipidemia: Patient will continue with his current outpatient medication. 6. Left bundle branch block: With patient's near syncope, left bundle branch block and known cardiomyopathy recommend continued work-up for possible HAND PLUG SHAPER ICD placement this can be done on an outpatient basis. This patient has been discussed and seen in conjunction with Dr. White. <Kaiser White - Last Filed: 07/09/18 16:58> Reason for Consult History of Present Illness: The patient is a 77 year old M [] Past Medical History - *Family History Maternal Family History: Family History (Last Reviewed 06/25/18 @ 13:36 by Vic Escobar MD) Father Diabetes Heart disease CVA (cerebral vascular accident) Myocardial infarction Mother Heart disease Myocardial infarction Paternal Family History: Family History (Last Reviewed 06/25/18 @ 13:36 by Vic Escobar MD) Father Diabetes Heart disease CVA (cerebral vascular accident) Myocardial infarction Mother Heart disease Myocardial infarction Objective: Vital Signs Temp Pulse Resp BP Pulse Ox 98.4 F 101 H 18 117/55 L 97 07/09/18 14:25 07/09/18 15:41 07/09/18 14:25 07/09/18 14:25 07/09/18 14:25 Oxygen Delivery Method Room Air Weight: 154 lb 5.177 oz Body Mass Index (BMI) 23.6 Orthostatic Vital Signs Start: 07/09/18 03:32 Freq: q24h Status: Active Protocol: Activity Type Activity Date Activity User E-Sign Co-Sign Detail Recorded Client Recorded Date Recorded By Document 07/09/18 03:32 [facility] [id number] 07/09/18 03:34 [facility] 07/09/18 03:32 Orthostatic Vitals Standing -Blood Pressure (90/60-120/80 mm Hg) 104/60 -Extremity Use Left Arm -Pulse Rate (60-100 beats/min) 81 Sitting -Blood Pressure (90/60-120/80 mm Hg) 100/55 L -Extremity Use Left Arm -Pulse Rate (60-100 beats/min) 77 Lying -Blood Pressure (90/60-120/80 mm Hg) 120/60 -Extremity Use Left Arm -Pulse Rate (60-100 beats/min) 71 Intake and Output for Last 24 Hours 07/07/18 07/08/18 07/09/18 23:59 23:59 23:59 Intake Total 740 / 740 1217 / 1217 Output Total 900 / 900 Balance 740 / 740 317 / 317 07/08/18 22:18: Troponin I < 0.015 07/09/18 00:45: Troponin I < 0.015 07/09/18 04:10: WBC 3.5 L, RBC 3.06 L, Hgb 9.9 L, Hct 28.3 L, MCV 92.5, MCH 32.4 H, MCHC 35.0, RDW 14.8 H, RDW Differential 50.4 H, Plt Count 95 L, MPV 8.9, Immature Gran % (Auto) 0.300, Neut % (Auto) 48.8, Lymph % (Auto) 35.0, Clinch % (Auto) 12.4 H, Eos % (Auto) 3.2, Baso % (Auto) 0.3, Absolute Neuts (auto) 1.7 L, Total Counted Not Reportable 07/09/18 04:10: Sodium 135 L, Potassium 3.9, Chloride 101, Carbon Dioxide 27.0, Anion Gap 7, BUN 24 H, Creatinine 1.18, Est GFR (MDRD) Af Amer 77, Est GFR (MDRD) Non-Af 64, BUN/Creatinine Ratio 20.3 H, Glucose 112 H, Calcium 8.6, Troponin I < 0.015 Rhythm: EKG: ECHO: Stress Test: Cardiac Cath: PCI: CT Surgery: Holter monitor: EPS: PPM: CXR: Chest CT Scan: Assessment/Plan Addendum: The patient's case was discussed and reviewed with HAWA Hoang. The patient was interviewed and evaluated independently. The patient has undergone recent hospitalization and noninvasive evaluation including transthoracic echocardiogram and exercise tolerance test/nuclear imaging study as previously noted. His medications were adjusted. He notes at home he felt as if he may lose consciousness but did not. He was brought to the emergency department for evaluation. There were concerns of possible orthostasis related to his recent diuresis and weight loss bringing out hypotensive episodes. He has been monitored in the hospital. With adjustment of medications primarily holding any antihypertensive therapy and diuretic therapy he has felt better. His cardiac enzyme profile has remained negative. His implantable loop recorder was interrogated and was found to have battery depletion and could not provide any additional information. He has not demonstrated ongoing cardiac dysrhythmias on telemetry thus far. His examination at the moment demonstrates his lungs to appear clear and his cardiac rhythm appears to be regular at this time. His lower extremities demonstrate no obvious ongoing edema. At the present time there are concerns that the patient's symptoms may have been related to his recent diuresis, intravascular volume depletion, weight loss, and orthostasis There is no evidence of underlying acute coronary syndrome or augmentation of an underlying acute cardiac dysrhythmia to explain his event. There is been no other noncardiovascular issues noted to explain his event. At the present time he will continue to be monitored. His cardiovascular medications will be reintroduced gradually at lower doses. His vital signs be followed. His volume status will be followed. He will eventually need to be placed back on a diuretic to avoid subsequent volume overload. Hopefully, if he has no other adverse events, and remains symptomatically and hemodynamically stable on adjusted dose medication, he will be able to be released home in the near future. At that time will be reasonable, especially since his implantable loop recorder is nonfunctioning, to place the patient on a 30-day ambulatory event monitor to to continue to monitor his cardiac rhythm. He may still need to be considered for future by Bi[employer] ICD HAND PLUG SHAPER therapy. Comment: The above was discussed and reviewed with the patient.
--- NOTE | 2018-07-09 14:18 | CASEMGMT ---
Resumption of care order placed and message left for Shital at [facility] that pt will most likely be discharged on 07/10. Cyril JAMES CM
--- NOTE | 2018-07-09 14:54 | CHAPLAIN ---
Type of Pastoral Visit _x__ Initial Visit ___ Follow-up Visit ___ On-call Visit ___ General Patient Visit ___ Spiritual Assessment ___ Family Conference ___ Bereavement ___ Rapid Response ___ Code Blue ___ Other (describe below) Pastoral Care Referral From _x__ Patient ___ Family ___ Nurse ___ Physician ___ Professional Athlete ___ Numerical Control Drill Press Operator ___ Other (describe below) Sacrament/Intervention _x__ Active listening ___ Anointing ___ Moravian ___ Bereavement ___ Communion _x__ Maria Esther exploration ___ _x__ Life review _x__ Prayer ___ Reconciliation ___ Sacrament of Sick _x__ Supportive presence ___ Wedding ___ Other (describe below) Pastoral Comments
[2018-07-09] MEDS: Metoprolol Tartrate 50 MG Tablet PO (19:41)
[2018-07-09] MEDS: Pravastatin 80 MG Tablet PO (22:51)
[2018-07-09] MEDS: SACUBITRIL/VALSARTAN 24/26 MG TABLET 1 EACH PO (22:52)
[2018-07-09] MEDS: HYDROcodone Bitartrate/Apap 5/325 Tablet PO (22:57)
[2018-07-10 03:44] VITALS: PULSE 59
[2018-07-10 04:45] VITALS: BP 127/65; PULSE 79; RESP 16; TEMP 36.7; O2SAT 96
[2018-07-10 05:00] VITALS: BP 112/67; BP 119/67; BP 127/65; PULSE 70; PULSE 77; PULSE 82
[2018-07-10 07:00] VITALS: PULSE 79
[2018-07-10 07:18] LABS: Anion Gap 9 (5-15); BUN 25 mg/dL (7-18); Calcium,Total 8.9 mg/dL (8.5-10.1); Chloride 101 mmol/L (98-107); EST Glomerular Filtration Rate 77 mL/min (>60); Est Glom Filt Rate - Afr Amer 93 mL/min (>60); Estimated Creatinine Clearance 55.83 ml/min; Glucose 96 mg/dL (74-106); Potassium 3.8 mmol/L (3.5-5.1); Sodium Level 137 mmol/L (136-145)
[2018-07-10] MEDS: APIXABAN 5 MG TABLET PO (08:59)
[2018-07-10] MEDS: SACUBITRIL/VALSARTAN 24/26 MG TABLET 1 EACH PO (09:00)
[2018-07-10 09:01] VITALS: PULSE 79
[2018-07-10] MEDS: Iron Polysaccharide Complex 150 MG CAPSULE PO (09:01)
[2018-07-10] MEDS: Metoprolol Tartrate 50 MG Tablet PO (09:01)
[2018-07-10] MEDS: Pantoprazole Sodium 40 MG Tablet PO (09:02)
[2018-07-10] MEDS: Famotidine 20 MG Tablet 40 MG PO (09:02)
[2018-07-10] MEDS: Finasteride 5 MG Tablet PO (09:02)
[2018-07-10] MEDS: Febuxostat 40 MG TABLET PO (09:02)
[2018-07-10 09:05] VITALS: BP 125/70; PULSE 74; RESP 12; TEMP 37; O2SAT 94
--- NOTE | 2018-07-10 11:55 | DCINST_ITS ---
- Discharge Diagnoses Current Active Problems: Current Active and Chronic Problems (Last Updated 07/09/18 @ 11:41 by Lu Chavira) Syncope (Acute) Debility (Chronic) COPD (chronic obstructive pulmonary disease) (Chronic) CKD (chronic kidney disease), stage III (Chronic) Systolic heart failure (Chronic) You will use the following diet at home:: Cardiac Your food should be the consistency of: Regular Your liquids should be the consistency of: Regular/Thin Discharge Activity: Return to Normal Activity Allergies/Adverse Reactions: Allergies Penicillins Allergy (Verified 06/25/18 12:22) Unknown Medications to take at Discharge Febuxostat [Uloric] 40 mg PO DAILY 02/12/17 Apixaban [Eliquis] 5 mg PO BID 06/10/18 Famotidine 40 mg PO DAILY 06/10/18 Finasteride 5 mg PO DAILY 06/10/18 Omeprazole 40 mg PO DAILY 06/10/18 Oxybutynin [Ditropan] 5 mg PO TID 06/10/18 Pravastatin [Pravachol] 80 mg PO QHS 06/10/18 Vortioxetine Hydrobromide [Trintellix] 20 mg PO DAILY 06/10/18 polysaccharide iron complex 150 mg iron capsule 150 mg PO DAILY cap 06/25/18 Hydrocodone/Acetaminophen [Hydrocodone-Acetamin 7.5-325] 1 tab PO 4X/DAY 07/08/18 Furosemide [Lasix] 20 mg PO DAILY #30 tablet 07/10/18 Metoprolol Tartrate [Lopressor (beta jenae)] 50 mg PO BID #60 tablet 07/10/18 Sacubitril/Valsartan 24/26 mg [Entresto 24 mg-26 mg Tablet] 1 each PO BID #60 tablet 07/10/18 The following prescriptions were given: Furosemide [Lasix] 20 mg PO DAILY #30 tablet Metoprolol Tartrate [Lopressor (beta jenae)] 50 mg PO BID #60 tablet Sacubitril/Valsartan 24/26 mg [Entresto 24 mg-26 mg Tablet] 1 each PO BID #60 tablet Primary Care Physician: Jaden Farmer Chi, MD [Primary Care Provider] - Please follow up with your Primary Care Physician in: 1-2 weeks Test Results: Test results from this visit will be discussed in further detail at your follow- up appointment, if applicable. Please Follow Up With: Kaiser White MD When: as directed Proposed Discharge Date: 07/10/18
--- NOTE | 2018-07-10 13:13 | PN.CARD_ITS ---
Subjectve: The patient states he continues to feel better. He has been up and ambulating with his cane without difficulty. Objective: Vital Signs Temp Pulse Resp BP Pulse Ox 98.6 F 74 12 125/70 H 94 07/10/18 09:05 07/10/18 09:05 07/10/18 09:05 07/10/18 09:05 07/10/18 09:05 Oxygen Delivery Method Room Air Weight: 152 lb 12.485 oz Body Mass Index (BMI) 23.6 Intake and Output for Last 24 Hours 07/08/18 07/09/18 07/10/18 23:59 23:59 23:59 Intake Total 740 / 740 1697 / 1697 480 / 480 Output Total 900 / 900 575 / 575 Balance 740 / 740 797 / 797 -95 / -95 General: Awake, Alert, Oriented x 3, Cooperative, No Acute Distress HEENT: Atraumatic, Normocephalic, PERRL Oral: Moist Mucosa Neck: Supple, Good ROM, No JVD Lungs: Clear to auscultation Cardiovascular: Regular Rhythm, Normal S1, Normal S2 Abdomen: Bowel Sounds Present, Soft, Non Tender Extremities: No edema Neurological: No Focal Motor or Sensory Deficit Psych/Mental Status: Appropriate 07/10/18 06:20: Sodium 137, Potassium 3.8, Chloride 101, Carbon Dioxide 27.0, Anion Gap 9, BUN 25 H, Creatinine 1.00, Est GFR (MDRD) Af Amer 93, Est GFR (MDRD) Non-Af 77, BUN/Creatinine Ratio 25.0 H, Glucose 96, Calcium 8.9 Rhythm: Sinus rhythm/IVCD Medical Necessity - Tobacco Use Smoking Status: Former smoker Tobacco Use: Secondhand, Cigars Assessment/Plan 1. Syncope The patient had near syncope/syncope. At the present time the working diagnosis has been recent diuresis with intravascular volume depletion and orthostasis. The patient has appeared to improve with respect to adjusting medications and volume status. Thus far there is been no other obvious cardiac dysrhythmia or cardiovascular event to explain his event. He will continue to be followed as an outpatient. If there are any other concerns with respect to ongoing dysrhythmias then it may be reasonable to consider him for continued outpatient ambulatory event monitor follow-up with a 30-day event monitor. 2. CAD status post CABG The patient appears to be without any evidence of acute coronary syndrome. He will continue risk factor modification medical management. His medications will be adjusted over time based upon his symptoms and his hemodynamics. 3. Ischemic mediated cardiomyopathy The patient does have diminished LV systolic function. At the moment he is without acute CHF or pulmonary edema. He will continue medical management. He will be considered for future ICD with biventricular ELECTROSTATIC POWDER COATING TECHNICIAN device based upon his underlying left bundle branch block pattern. 4. Chronic systolic mediated CHF The patient appears to be without acute symptoms since his recent diuresis. His medications are being readjusted. He will be placed back on low-dose diuretic therapy. This may need to be adjusted over time to avoid volume overload. 5. Hyperlipidemia He will continue medical management as deemed appropriate. 6. Hypertension His blood pressures will be followed. His medications to be adjusted to hopefully avoid hypotension and hypertension. Comment: The above was discussed reviewed with the patient, his spouse, and the [facility] hospitalist team. This note was generated with NPS dictation software. It may contain incorrect words, spelling, and punctuation that were not noted in checking the note before signing.
--- NOTE | 2018-07-10 14:07 | PCM.DC.SUM ---
<Kem Nguyen - Last Filed: 07/10/18 14:07> Discharge Date and Diagnosis Date of Admission: 07/08/18 Date of Discharge: 07/10/18 - Primary Discharge Diagnosis Dizziness and near syncope secondary to hypotension secondary to diuretics and hypertensive medications Chest pain Chronic systolic congestive heart failure with ischemic cardiomyopathy CAD with history of CABG and stents Pancytopenia, unclear etiology Hyponatremia secondary to diuretics BPH CKD stage III History of CVA History of atrial flutter History of bilateral pulmonary emboli History of PAD History of COPD - Secondary Discharge Diagnosis Chronic Problems (Last Updated 07/09/18 @ 11:41 by Lu Chavira) Status post placement of implantable loop recorder (Chronic) Debility (Chronic) COPD (chronic obstructive pulmonary disease) (Chronic) CKD (chronic kidney disease), stage III (Chronic) Systolic heart failure (Chronic) Acute on chronic systolic (congestive) heart failure (Chronic) H/O coronary artery bypass surgery (Chronic 10/30/94) 10/30/94 CABGx4 WYATT to LAD,SVG to first diagonal,the second diagonal,and to posterolateral branch of RCA Essential (primary) hypertension (Chronic) Ischemic cardiomyopathy (Chronic) Presence of aortocoronary bypass graft (Chronic) 10/30/94 CABGx4 WYATT to LAD,SVG to first diagonal,the second diagonal,and to posterolateral branch of RCA Atherosclerotic heart disease of [place] coronary artery without angina pectoris (Chronic) 10/30/94 CABGx4 WYATT to LAD,SVG to first diagonal,the second diagonal,and to posterolateral branch of RCA Left bundle branch block (Chronic) HLD (hyperlipidemia) (Chronic) Hospital Course and Treatment Imaging Results: RAD/Chest PA and Lateral IMPRESSION: Mild pleural parenchymal changes at the left lung base. No evidence of CHF at this time. Consultations: Cardiology-Christopher/Romero Operations: None Procedures: None Summary of Care Provided: Hospital course: The patient is a 77 year old M with complicated cardiac history as above who presented to the emergency room with weakness, near syncope, and hypotension. He was sent by his home health nurse. He was found to have a blood pressure of 80/52. He had recently been discharged from the hospital and had has had significant weight loss on his diuretic regimen since then. He is felt to have near syncope and hypotension secondary to polypharmacy. His antihypertensives and diuretics were held. His L for Zosyn for BPH was also discontinued. He was admitted to the PCU on telemetry. By the following morning his blood pressure had improved. He was given gentle hydration with IV fluids. Cardiology was consulted as he recently had a stress test prior to admission. Cardiology recommended gradual reintroduction of his metoprolol and Entresto. He was restarted at half dose of metoprolol and Entresto. He tolerated this well with no hypotension, lightheadedness, dizziness. He had no events on telemetry. No acute EKG changes, and troponin negative x3. He has an EF of 15 to 20% and is being considered for ICD placement, he will continue to be evaluated for this as an outpatient. He was discharged home in stable condition he will need to follow-up with cardiology as directed, and follow-up with his PCP in 1 to 2 weeks. This patient was seen by Kem Nguyen PA-C under the supervision of Doctor Juana. [] - Physical Exam General: Alert, Oriented x3, Cooperative HEENT: Atraumatic, PERRLA, EOMI, Normocephalic Neck: Supple, No JVD, Negative Carotid Bruits Lungs: Clear to auscultation, Normal air movement Cardiovascular: Regular rate, No murmurs Abdomen: Bowel Sounds Present, Soft, Non Tender Extremities: No edema, Capillary Refill Less than 3 Seconds Skin: No rashes, No breakdown Musculoskeletal: No Tenderness to Palpation of Joints or Extremities Neurological: Cranial nerves II-XII grossly intact Psych/Mental Status: Normal Affect, Appropriate, Alert and oriented to time, place, person, mood and affect Vital Signs Temp Pulse Resp BP Pulse Ox 98.6 F 74 12 125/70 H 94 07/10/18 09:05 07/10/18 09:05 07/10/18 09:05 07/10/18 09:05 07/10/18 09:05 Oxygen Delivery Method Room Air Weight: 152 lb 12.485 oz Body Mass Index (BMI) 23.6 Intake and Output for Last 24 Hours 07/08/18 07/09/18 07/10/18 23:59 23:59 23:59 Intake Total 740 / 740 1697 / 1697 480 / 480 Output Total 900 / 900 575 / 575 Balance 740 / 740 797 / 797 -95 / -95 Laboratory Tests Past 24 Hrs 07/10/18 06:20 Sodium 137 Potassium 3.8 Chloride 101 Carbon Dioxide 27.0 Anion Gap 9 BUN 25 H Creatinine 1.00 Estim Creat Clear Calc 55.83 Est GFR (MDRD) Af Amer 93 Est GFR (MDRD) Non-Af 77 BUN/Creatinine Ratio 25.0 H Glucose 96 Calcium 8.9 Discharge Diet: Low fat/ Low Cholesterol, 2000 mg Sodium Diet Discharge Activity: Return to Normal Activity Home Medications: Medications to take at Discharge Febuxostat [Uloric] 40 mg PO DAILY 02/12/17 Apixaban [Eliquis] 5 mg PO BID 06/10/18 Famotidine 40 mg PO DAILY 06/10/18 Finasteride 5 mg PO DAILY 06/10/18 Omeprazole 40 mg PO DAILY 06/10/18 Oxybutynin [Ditropan] 5 mg PO TID 06/10/18 Pravastatin [Pravachol] 80 mg PO QHS 06/10/18 Vortioxetine Hydrobromide [Trintellix] 20 mg PO DAILY 06/10/18 polysaccharide iron complex 150 mg iron capsule 150 mg PO DAILY cap 06/25/18 Hydrocodone/Acetaminophen [Hydrocodone-Acetamin 7.5-325] 1 tab PO 4X/DAY 07/08/18 Furosemide [Lasix] 20 mg PO DAILY #30 tablet 07/10/18 Metoprolol Tartrate [Lopressor (beta jenae)] 50 mg PO BID #60 tablet 07/10/18 Sacubitril/Valsartan 24/26 mg [Entresto 24 mg-26 mg Tablet] 1 each PO BID #60 tablet 07/10/18 Following Prescrptions Were Given to Patient: Furosemide [Lasix] 20 mg PO DAILY #30 tablet Metoprolol Tartrate [Lopressor (beta jenae)] 50 mg PO BID #60 tablet Sacubitril/Valsartan 24/26 mg [Entresto 24 mg-26 mg Tablet] 1 each PO BID #60 tablet Primary Care Physician: Jaden Farmer Chi, MD [Primary Care Provider] - Please follow up with your Primary Care Physician in: 1-2 weeks Please Follow Up With: Kaiser White MD When: as directed Please Follow Up With: Jaden Farmer Chi, MD Disposition: Home Minutes spent on discharge:: 35 Patient Condition:: Stable Medical Necessity - Tobacco Use Smoking Status: Former smoker Tobacco Use: Secondhand, Cigars Meaningful Use Info Meaningful Use Diagnoses (Choose all that apply): None applicable <Frederic Arias - Last Filed: 07/10/18 14:22> Discharge Date and Diagnosis - Secondary Discharge Diagnosis Chronic Problems (Last Updated 07/09/18 @ 11:41 by Lu Chavira) Status post placement of implantable loop recorder (Chronic) Debility (Chronic) COPD (chronic obstructive pulmonary disease) (Chronic) CKD (chronic kidney disease), stage III (Chronic) Systolic heart failure (Chronic) Acute on chronic systolic (congestive) heart failure (Chronic) H/O coronary artery bypass surgery (Chronic 10/30/94) 10/30/94 CABGx4 WYATT to LAD,SVG to first diagonal,the second diagonal,and to posterolateral branch of RCA Essential (primary) hypertension (Chronic) Ischemic cardiomyopathy (Chronic) Presence of aortocoronary bypass graft (Chronic) 10/30/94 CABGx4 WYATT to LAD,SVG to first diagonal,the second diagonal,and to posterolateral branch of RCA Atherosclerotic heart disease of [place] coronary artery without angina pectoris (Chronic) 10/30/94 CABGx4 WYATT to LAD,SVG to first diagonal,the second diagonal,and to posterolateral branch of RCA Left bundle branch block (Chronic) HLD (hyperlipidemia) (Chronic) Hospital Course and Treatment Operations: None Procedures: None Summary of Care Provided: Patient seen and examined independently. Data reviewed. I agree with the above note by the physician trust operations assistant. The patient is a 77 [facility] with near syncope and hypotension. Likely felt to be iatrogenic and many of his antihypertensives and diuretics were held. Patient did receive IV fluids. Orthostatics did improve. Patient was seen in consultation by cardiology patient seen and examined independently. Data reviewed. I agree with the above note by the nurse practitioner.Patient was reintroduced on metoprolol as well as Entresto. [] - Physical Exam General: Alert, Cooperative HEENT: Atraumatic, Normocephalic Vital Signs Temp Pulse Resp BP Pulse Ox 37.0 C 74 12 125/70 H 94 07/10/18 09:05 07/10/18 09:05 07/10/18 09:05 07/10/18 09:05 07/10/18 09:05 Oxygen Delivery Method Room Air Weight: 69.3 kg Body Mass Index (BMI) 23.6 Intake and Output for Last 24 Hours 07/08/18 07/09/18 07/10/18 23:59 23:59 23:59 Intake Total 740 / 740 1697 / 1697 480 / 480 Output Total 900 / 900 575 / 575 Balance 740 / 740 797 / 797 -95 / -95 Laboratory Tests Past 24 Hrs 07/10/18 06:20 Sodium 137 Potassium 3.8 Chloride 101 Carbon Dioxide 27.0 Anion Gap 9 BUN 25 H Creatinine 1.00 Estim Creat Clear Calc 55.83 Est GFR (MDRD) Af Amer 93 Est GFR (MDRD) Non-Af 77 BUN/Creatinine Ratio 25.0 H Glucose 96 Calcium 8.9 Discharge Diet: Low fat/ Low Cholesterol, 2000 mg Sodium Diet Discharge Activity: Return to Normal Activity Patient Condition:: Stable Medical Necessity - Tobacco Use Smoking Status: Former smoker Tobacco Use: Secondhand, Cigars Meaningful Use Info Meaningful Use Diagnoses (Choose all that apply): None applicable Code Visit Inpatient E&M: 91647 Disch Hosp
--- NOTE | 2018-07-12 14:29 | CASEMGMT ---
JACOB BYRNES DC PHONE CALL DC DATE: 07/10/18 DC Disposition: Home with Home Health LACE/STRATA: 12/12 Call deferred. Pt being seen by [facility]. Facundo JOHNSONN RN ACM
== END 2018-07-10 12:56 | disposition home health service (06) | DRG 312 ==
LOC: ED 14:06 → PCU 15:52
PROVIDERS: Physician Assistant; Admitting Provider Internal Medicine; Emergency Provider Emergency Medicine; Family Provider Family Medicine Geriatric Medicine; PCP Family Medicine Geriatric Medicine
DX: I95.2 Hypotension due to drugs (principal); I13.0 Hypertensive heart and chronic kidney disease with heart failure and stage 1 through stage 4 chronic kidney disease, or unspecified chronic kidney disease; D61.818 Other pancytopenia; I50.22 Chronic systolic (congestive) heart failure; E87.1 Hypo-osmolality and hyponatremia; E86.0 Dehydration; R55 Syncope and collapse; T50.2X5A Adverse effect of carbonic-anhydrase inhibitors, benzothiadiazides and other diuretics, initial encounter; N18.3 Chronic kidney disease, stage 3 (moderate); N40.0 Benign prostatic hyperplasia without lower urinary tract symptoms; I25.10 Atherosclerotic heart disease of native coronary artery without angina pectoris; J44.9 Chronic obstructive pulmonary disease, unspecified; I25.5 Ischemic cardiomyopathy; E78.5 Hyperlipidemia, unspecified; K21.9 Gastro-esophageal reflux disease without esophagitis; M19.90 Unspecified osteoarthritis, unspecified site; Z86.74 Personal history of sudden cardiac arrest; Z87.891 Personal history of nicotine dependence; M10.9 Gout, unspecified
CPT/HCPCS: 36415; 71046; 78452; 80048; 80053; 83880; 84484; 85025; 93005; 93017; 97161; 97166; 97802; 99285; A9500; J7030; J7040; A4216; J2785

== ENCOUNTER → 2018-07-15 | Outpatient (CLI) | payer MEDICARE, MEDICAID, SELFPAY ==
[2018-07-08 16:01] VITALS: BMI 23.6
[2018-07-15 17:35] LABS: Anion Gap 10 (5-15); BUN 18 mg/dL (7-18); BUN/Creat Ratio 19.6 RATIO (10-20); Calcium,Total 8.7 mg/dL (8.5-10.1); Chloride 101 mmol/L (98-107); Creatinine, Serum 0.92 mg/dL (0.70-1.30); EST Glomerular Filtration Rate 85 mL/min (>60); Est Glom Filt Rate - Afr Amer 103 mL/min (>60); Glucose 93 mg/dL (74-106); Potassium 3.8 mmol/L (3.5-5.1); Sodium Level 135 mmol/L (136-145)
== END | disposition home or self-care (01) ==
LOC: POLAB3 15:43
PROVIDERS: Family Provider Family Medicine Geriatric Medicine; PCP Family Medicine Geriatric Medicine; Visit Provider Family Medicine Geriatric Medicine
DX: I50.23 Acute on chronic systolic (congestive) heart failure (principal)
CPT/HCPCS: 36415; 80048

== ENCOUNTER → 2018-09-15 | Outpatient (CLI) | payer MEDICARE, SELFPAY ==
[2018-08-06 09:43] VITALS: BMI 23.8
[2018-09-15 17:09] LABS: Absolute Lymphocyte Count 1.45 X10^3/uL (0.83-4.51); Absolute Neutrophil Count 2.9 X10^3/uL (2.0-7.7); Basophil# 0.01 X10^3/uL; Basophil% 0.2 % (0-1); Hematocrit 32.3 % (40-54); Hemoglobin 10.9 g/dL (13.0-16.5); Lymphocyte # 1.45 X10^3/ul (4.0); Lymphocyte % 29.4 % (19-41); Mean Corp Hgb Conc 33.7 g/dL (32-36); Mean Corpuscular Hgb 33.7 pg (27.0-32.0); Mean Platelet Vol. 9.6 fl (6.2-12.0); Monocyte# 0.44 X10^3/uL; Monocyte% 8.9 % (0-10); NRBC Flagged by Analyzer 0 % (0-5); Neutrophil # 2.93 X10^3/uL (2.7-7.7); Neutrophil % 59.3 % (47-70); Platelet Count 142 K/mm3 (150-450); RBC Distribution Width CV 13.9 % (11.6-14.6); RBC Distribution Width SD 51.1 fl (35.1-43.9); Red Blood Count 3.23 M/mm3 (4.6-6.2); White Blood Count 4.9 K/mm3 (4.4-11.0)
[2018-09-15 17:25] LABS: Vitamin D,25 Hydroxy 31.9 ng/mL (29.95-100.01)
[2018-09-15 17:34] LABS: AST(SGOT) 13 U/L (15-37); Alanine Aminotransfer ALT/SGPT 16 U/L (16-61); Albumin, Serum 3.4 g/dL (3.2-5.0); Alkaline Phosphatase 39 U/L (45-117); Anion Gap 8 (5-15); BUN 15 mg/dL (7-18); BUN/Creat Ratio 14.3 RATIO (10-20); Calcium,Total 8.7 mg/dL (8.5-10.1); Chloride 99 mmol/L (98-107); Creatinine, Serum 1.05 mg/dL (0.70-1.30); EST Glomerular Filtration Rate 73 mL/min (>60); Est Glom Filt Rate - Afr Amer 88 mL/min (>60); Globulin 3.3 g/dL (2.2-4.2); Glucose 74 mg/dL (74-106); Potassium 4.2 mmol/L (3.5-5.1); Protein, Total 6.7 g/dL (6.4-8.2); Sodium Level 135 mmol/L (136-145); Thyroid Stim Hormone (TSH) 1.23 uIU/mL (0.358-3.74); Uric Acid 4.4 mg/dL (3.5-7.2)
== END | disposition home or self-care (01) ==
LOC: POLAB3 13:37
PROVIDERS: Family Provider Family Medicine Geriatric Medicine; PCP Family Medicine Geriatric Medicine; Visit Provider Family Medicine Geriatric Medicine
DX: E55.9 Vitamin D deficiency, unspecified (principal); I10 Essential (primary) hypertension; M10.9 Gout, unspecified
CPT/HCPCS: 36415; 80053; 82306; 84443; 84550; 85025

== ENCOUNTER → 2018-11-15 13:41 | Outpatient (CLI) | payer MEDICARE, SELFPAY ==
[2018-08-06 09:43] VITALS: BMI 23.8
[2018-11-15 16:39] LABS: Absolute Lymphocyte Count 1.62 X10^3/uL (0.83-4.51); Absolute Neutrophil Count 3.3 X10^3/uL (2.0-7.7); Basophil# 0.03 X10^3/uL; Basophil% 0.5 % (0-1); Eosinophil# 0.12 X10^3/uL; Eosinophils% 2.2 % (0-5); Hematocrit 32.4 % (40-54); Hemoglobin 10.9 g/dL (13.0-16.5); Lymphocyte # 1.62 X10^3/ul (4.0); Lymphocyte % 29.3 % (19-41); Mean Corp Hgb Conc 33.6 g/dL (32-36); Mean Corpuscular Volume 98.2 fL (80-94); Mean Platelet Vol. 9.2 fl (6.2-12.0); Monocyte# 0.47 X10^3/uL; Monocyte% 8.5 % (0-10); NRBC Flagged by Analyzer 0 % (0-5); Neutrophil # 3.26 X10^3/uL (2.7-7.7); Platelet Count 184 K/mm3 (150-450); RBC Distribution Width CV 13.1 % (11.6-14.6); RBC Distribution Width SD 46.6 fl (35.1-43.9); White Blood Count 5.5 K/mm3 (4.4-11.0)
[2018-11-15 16:58] LABS: Vitamin D,25 Hydroxy 28.5 ng/mL (29.95-100.01)
[2018-11-15 17:05] LABS: ALB/GLOB Ratio 0.9 RATIO (0.9-2.4); AST(SGOT) 18 U/L (15-37); Alanine Aminotransfer ALT/SGPT 17 U/L (16-61); Albumin, Serum 3.4 g/dL (3.2-5.0); Alkaline Phosphatase 41 U/L (45-117); Anion Gap 11 (5-15); BUN 15 mg/dL (7-18); BUN/Creat Ratio 15.4 RATIO (10-20); Calcium,Total 8.7 mg/dL (8.5-10.1); Chloride 102 mmol/L (98-107); Creatinine, Serum 0.98 mg/dL (0.70-1.30); EST Glomerular Filtration Rate 79 mL/min (>60); Est Glom Filt Rate - Afr Amer 96 mL/min (>60); Globulin 3.7 g/dL (2.2-4.2); Glucose 86 mg/dL (74-106); Potassium 3.4 mmol/L (3.5-5.1); Protein, Total 7.1 g/dL (6.4-8.2); Sodium Level 138 mmol/L (136-145); Thyroid Stim Hormone (TSH) 0.83 uIU/mL (0.358-3.74); Uric Acid 3.9 mg/dL (3.5-7.2)
== END ==
PROVIDERS: Family Provider Family Medicine Geriatric Medicine; PCP Family Medicine Geriatric Medicine; Visit Provider Family Medicine Geriatric Medicine
DX: E55.9 Vitamin D deficiency, unspecified (principal); I10 Essential (primary) hypertension; M10.9 Gout, unspecified
CPT/HCPCS: 36415; 80053; 82306; 84443; 84550; 85025

== ENCOUNTER → 2018-11-23 14:10 | Outpatient (CLI) | payer MEDICARE, SELFPAY ==
[2018-08-06 09:43] VITALS: BMI 23.8
[2018-11-23 16:04] LABS: Anion Gap 7 (5-15); BUN 19 mg/dL (7-18); BUN/Creat Ratio 16.8 RATIO (10-20); Calcium,Total 8.6 mg/dL (8.5-10.1); Chloride 102 mmol/L (98-107); Creatinine, Serum 1.13 mg/dL (0.70-1.30); EST Glomerular Filtration Rate 67 mL/min (>60); Est Glom Filt Rate - Afr Amer 81 mL/min (>60); Glucose 94 mg/dL (74-106); Sodium Level 139 mmol/L (136-145)
== END ==
PROVIDERS: Family Provider Family Medicine Geriatric Medicine; PCP Family Medicine Geriatric Medicine; Visit Provider Family Medicine Geriatric Medicine
DX: E87.6 Hypokalemia (principal)
CPT/HCPCS: 36415; 80048

== ENCOUNTER → 2019-02-14 15:58 | Outpatient (CLI) | payer MEDICARE, SELFPAY ==
[2019-01-03 11:10] VITALS: BMI 25.9
[2019-02-14 18:00] LABS: AST(SGOT) 17 U/L (15-37); Alanine Aminotransfer ALT/SGPT 17 U/L (16-61); Albumin, Serum 3.3 g/dL (3.2-5.0); Alkaline Phosphatase 33 U/L (45-117); Anion Gap 5 (5-15); BUN 20 mg/dL (7-18); BUN/Creat Ratio 17.5 RATIO (10-20); Calcium,Total 8.6 mg/dL (8.5-10.1); Chloride 105 mmol/L (98-107); Creatinine, Serum 1.14 mg/dL (0.70-1.30); EST Glomerular Filtration Rate 66 mL/min (>60); Est Glom Filt Rate - Afr Amer 80 mL/min (>60); Globulin 3.3 g/dL (2.2-4.2); Glucose 83 mg/dL (74-106); Potassium 4.1 mmol/L (3.5-5.1); Protein, Total 6.6 g/dL (6.4-8.2); Sodium Level 136 mmol/L (136-145)
[2019-02-14 18:04] LABS: Absolute Lymphocyte Count 2.02 X10^3/uL (0.83-4.51); Absolute Neutrophil Count 2.1 X10^3/uL (2.0-7.7); Basophil# 0.01 X10^3/uL; Basophil% 0.2 % (0-1); Eosinophil# 0.11 X10^3/uL; Eosinophils% 2.3 % (0-5); Hematocrit 35.7 % (40-54); Hemoglobin 12.3 g/dL (13.0-16.5); Lymphocyte # 2.02 X10^3/ul (4.0); Lymphocyte % 42.6 % (19-41); Mean Corp Hgb Conc 34.5 g/dL (32-36); Mean Corpuscular Hgb 33.2 pg (27.0-32.0); Mean Corpuscular Volume 96.2 fL (80-94); Mean Platelet Vol. 9.2 fl (6.2-12.0); Monocyte# 0.49 X10^3/uL; Monocyte% 10.3 % (0-10); NRBC Flagged by Analyzer 0 % (0-5); Neutrophil % 44.4 % (47-70); Platelet Count 138 K/mm3 (150-450); RBC Distribution Width CV 12.6 % (11.6-14.6); RBC Distribution Width SD 44.2 fl (35.1-43.9); Red Blood Count 3.71 M/mm3 (4.6-6.2); White Blood Count 4.7 K/mm3 (4.4-11.0)
[2019-02-14 18:07] LABS: Vitamin D,25 Hydroxy 26.1 ng/mL (29.95-100.01)
== END ==
PROVIDERS: Family Provider Family Medicine Geriatric Medicine; PCP Family Medicine Geriatric Medicine; Visit Provider Family Medicine Geriatric Medicine
DX: E55.9 Vitamin D deficiency, unspecified (principal); I10 Essential (primary) hypertension; M10.9 Gout, unspecified
CPT/HCPCS: 36415; 80053; 82306; 84443; 84550; 85025

== ENCOUNTER → 2019-04-18 13:40 | Outpatient (CLI) | payer MEDICARE, SELFPAY ==
[2019-01-03 11:10] VITALS: BMI 25.9
[2019-04-18 17:47] LABS: Absolute Lymphocyte Count 1.23 X10^3/uL (0.83-4.51); Absolute Neutrophil Count 6.9 X10^3/uL (2.0-7.7); Basophil# 0.02 X10^3/uL; Basophil% 0.2 % (0-1); Eosinophil# 0.07 X10^3/uL; Eosinophils% 0.8 % (0-5); Hematocrit 36.8 % (40-54); Hemoglobin 12.3 g/dL (13.0-16.5); Lymphocyte # 1.23 X10^3/ul (4.0); Lymphocyte % 13.6 % (19-41); Mean Corp Hgb Conc 33.4 g/dL (32-36); Mean Corpuscular Hgb 33.2 pg (27.0-32.0); Mean Corpuscular Volume 99.5 fL (80-94); Mean Platelet Vol. 9.5 fl (6.2-12.0); Monocyte# 0.73 X10^3/uL; Monocyte% 8.1 % (0-10); NRBC Flagged by Analyzer 0 % (0-5); Neutrophil # 6.92 X10^3/uL (2.7-7.7); Neutrophil % 76.7 % (47-70); Platelet Count 154 K/mm3 (150-450); RBC Distribution Width CV 13.3 % (11.6-14.6); RBC Distribution Width SD 48.5 fl (35.1-43.9)
[2019-04-18 17:56] LABS: Anion Gap 8 (5-15); BUN 27 mg/dL (7-18); BUN/Creat Ratio 18.2 RATIO (10-20); Calcium,Total 9.1 mg/dL (8.5-10.1); Chloride 103 mmol/L (98-107); Creatinine, Serum 1.48 mg/dL (0.70-1.30); EST Glomerular Filtration Rate 49 mL/min (>60); Est Glom Filt Rate - Afr Amer 59 mL/min (>60); Glucose 103 mg/dL (74-106); Potassium 4.3 mmol/L (3.5-5.1); Sodium Level 135 mmol/L (136-145)
[2019-04-18 17:59] LABS: Erythrocyte Sedimentation Rate 42 mm/hr (0-20)
== END ==
PROVIDERS: PCP Family Medicine Geriatric Medicine; Visit Provider Family Medicine Geriatric Medicine
DX: M79.609 Pain in unspecified limb (principal)
CPT/HCPCS: 36415; 80048; 85025; 85652; 86140

== ENCOUNTER → 2019-04-18 14:52 | Outpatient (CLI) | payer MEDICARE, SELFPAY ==
[2019-01-03 11:10] VITALS: BMI 25.9
--- NOTE | 2019-04-18 14:55 | VDLE_ITS ---
Reason For Study: BLE pain RIGHT LEFT GSV is normal. GSV is normal. CFV is compressible, spontaneous, phasic, CFV is compressible, spontaneous, phasic, competent and demonstrates normal competent, and demonstrates normal augmentation. augmentation. FV is compressible, spontaneous, phasic, Minimal chronic wall thickening noted within competent and demonstrates normal a small segment of the CFV. augmentation. FV is compressible, spontaneous, phasic, POP V is compressible, spontaneous, phasic, competent and demonstrates normal competent and demonstrates normal augmentation. augmentation. POP V is compressible, spontaneous, phasic, T/P Trunk is compressible. competent and demonstrates normal PTV is compressible. augmentation. RT PerV is compressible. T/P Trunk is compressible. Procedure PTV is compressible. Exam performed in department. LT PerV is compressible. The study was technically difficult. The exam was diagnostic. A preliminary report was called and/or faxed to Dr. Farmer @ [phone] @ 3:20 pm. Interpretation Summary Deep veins of the lower extremities are bilaterally patent and compressible segmentally. There is no evidence of deep vein thrombosis on either side. Valvular competence appears intact within the proximal deep venous systems bilaterally. The great saphenous veins appear bilaterally patent and compressible segmentally. Minimal chronic vein wall thickening is noted in a short segment of the left common femoral vein. Ordering Physician: Jaden Farmer Referring Physician: Jaden Farmer Chi Performed By: Tari Knutson, DEAN, RVT
== END ==
PROVIDERS: PCP Family Medicine Geriatric Medicine; Referring Provider Family Medicine Geriatric Medicine; Visit Provider Family Medicine Geriatric Medicine
DX: M79.604 Pain in right leg (principal); M79.605 Pain in left leg
CPT/HCPCS: 36415; 80048; 85025; 85652; 86140; 93970

== ENCOUNTER → 2019-04-25 12:33 | Outpatient (CLI) | payer MEDICARE, SELFPAY ==
[2019-01-03 11:10] VITALS: BMI 25.9
--- NOTE | 2019-04-25 13:01 | RAD_ITS ---
STUDY: X-RAY - LEFT TIBIA AND FIBULA REASON FOR EXAM: Male, 78 years old. Cellulitis x 1 week TECHNIQUE: AP and lateral view(s) of the tibia and fibula were obtained. COMPARISON: None. FINDINGS: Normal visualized tibia. Normal visualized fibula. Vascular calcifications. Multiple surgical clips are seen in the soft tissues suggestive of prior bypass grafting. RAD/Tibia & Fibula 2 Views IMPRESSION: Vascular calcifications and surgical clips are seen in the soft tissues. Electronically Signed: Alfonso Sarah, at 16:01 EDT , Service support ,
== END ==
PROVIDERS: PCP Family Medicine Geriatric Medicine; Referring Provider Family Medicine Geriatric Medicine; Visit Provider Family Medicine Geriatric Medicine
DX: L03.116 Cellulitis of left lower limb (principal)
CPT/HCPCS: 73590

== ENCOUNTER → 2019-04-27 12:15 | Outpatient (CLI) | payer MEDICARE, SELFPAY ==
[2019-01-03 11:10] VITALS: BMI 25.9
--- NOTE | 2019-04-27 12:17 | CT_ITS ---
STUDY: CT SCAN OF THE LOWER EXTREMITY LEFT REASON FOR EXAM: Male, 78 years old. LT LOWER LEG PAIN/REDNESS x 2 weeks just below knee to mid miguel. Hx of vein stripping this leg for 4 vessel CABG RADIATION DOSAGE (If Supplied By Facility): CTDIvol = ( 15.35 ) mGy, DLP = ( 791.27 ) mGycm. Individualized dose optimization techniques were used for this CT.? TECHNIQUE: Multiple axial tomographic images of the tibia and fibula were obtained without intravenous contrast administration. Coronal and sagittal reconstruction was obtained as well. COMPARISON: Comparison is made with prior radiograph dated April 25, 2019. FINDINGS: Diffuse vascular calcifications of the arterial vessels. Surgical clips are seen in the medial aspect of the lower extremity in keeping with history of prior stripping of the veins. Mild atrophy of the muscles more prominent involving the medial compartment. CT/Extremity Lower without Contra IMPRESSION: No acute abnormality is seen. Electronically Signed: Alfonso Sarah, at 13:35 EDT , Service support ,
== END ==
PROVIDERS: PCP Family Medicine Geriatric Medicine; Referring Provider Family Medicine Geriatric Medicine; Visit Provider Family Medicine Geriatric Medicine
DX: M79.605 Pain in left leg (principal); L03.116 Cellulitis of left lower limb
CPT/HCPCS: 73700

== ENCOUNTER → 2019-05-18 14:54 | Outpatient (CLI) | payer MEDICARE, SELFPAY ==
[2019-01-03 11:10] VITALS: BMI 25.9
[2019-05-18 15:44] LABS: Absolute Lymphocyte Count 1.78 X10^3/uL (0.83-4.51); Absolute Neutrophil Count 2.8 X10^3/uL (2.0-7.7); Basophil# 0.01 X10^3/uL; Basophil% 0.2 % (0-1); Eosinophil# 0.08 X10^3/uL; Eosinophils% 1.6 % (0-5); Hematocrit 34.3 % (40-54); Hemoglobin 11.9 g/dL (13.0-16.5); Lymphocyte # 1.78 X10^3/ul (4.0); Lymphocyte % 34.8 % (19-41); Mean Corp Hgb Conc 34.7 g/dL (32-36); Mean Corpuscular Hgb 32.6 pg (27.0-32.0); Mean Platelet Vol. 9.1 fl (6.2-12.0); Monocyte# 0.41 X10^3/uL; NRBC Flagged by Analyzer 0 % (0-5); Neutrophil # 2.82 X10^3/uL (2.7-7.7); Neutrophil % 55.2 % (47-70); Platelet Count 139 K/mm3 (150-450); RBC Distribution Width CV 13.1 % (11.6-14.6); RBC Distribution Width SD 45.3 fl (35.1-43.9); Red Blood Count 3.65 M/mm3 (4.6-6.2); White Blood Count 5.1 K/mm3 (4.4-11.0)
[2019-05-18 16:02] LABS: ALB/GLOB Ratio 1.1 RATIO (0.9-2.4); AST(SGOT) 19 U/L (15-37); Alanine Aminotransfer ALT/SGPT 23 U/L (16-61); Albumin, Serum 3.6 g/dL (3.2-5.0); Alkaline Phosphatase 35 U/L (45-117); Anion Gap 7 (5-15); BUN 23 mg/dL (7-18); BUN/Creat Ratio 20.5 RATIO (10-20); Calcium,Total 8.9 mg/dL (8.5-10.1); Chloride 101 mmol/L (98-107); Creatinine, Serum 1.12 mg/dL (0.70-1.30); EST Glomerular Filtration Rate 67 mL/min (>60); Est Glom Filt Rate - Afr Amer 81 mL/min (>60); Globulin 3.4 g/dL (2.2-4.2); Glucose 116 mg/dL (74-106); Potassium 4.2 mmol/L (3.5-5.1); Sodium Level 130 mmol/L (136-145); Thyroid Stim Hormone (TSH) 1.18 uIU/mL (0.358-3.74); Uric Acid 3.4 mg/dL (3.5-7.2)
== END ==
PROVIDERS: PCP Family Medicine Geriatric Medicine; Visit Provider Family Medicine Geriatric Medicine
DX: I10 Essential (primary) hypertension (principal); M10.9 Gout, unspecified
CPT/HCPCS: 36415; 80053; 84443; 84550; 85025

== ENCOUNTER → 2019-05-20 09:34 | Outpatient (CLI) | payer MEDICARE, SELFPAY ==
[2019-01-03 11:10] VITALS: BMI 25.9
[2019-05-20 12:33] LABS: Urine Sodium 45 mmol/L (Not Establ.)
[2019-05-20 12:39] LABS: Anion Gap 6 (5-15); BUN 22 mg/dL (7-18); BUN/Creat Ratio 21.8 RATIO (10-20); Calcium,Total 8.9 mg/dL (8.5-10.1); Chloride 98 mmol/L (98-107); Creatinine, Serum 1.01 mg/dL (0.70-1.30); EST Glomerular Filtration Rate 76 mL/min (>60); Est Glom Filt Rate - Afr Amer 92 mL/min (>60); Glucose 96 mg/dL (74-106); Potassium 4.1 mmol/L (3.5-5.1); Sodium Level 131 mmol/L (136-145)
[2019-05-20 12:59] LABS: Osmolality, Serum 281 mOsm/KG (280-301)
[2019-05-20 13:00] LABS: Osmolality, Urine 550 mOsm/KG
== END ==
PROVIDERS: PCP Family Medicine Geriatric Medicine; Visit Provider Family Medicine Geriatric Medicine
DX: E87.1 Hypo-osmolality and hyponatremia (principal)
CPT/HCPCS: 36415; 80048; 83930; 83935; 84300

== ENCOUNTER → 2019-08-18 13:41 | Outpatient (CLI) | payer MEDICARE, SELFPAY ==
[2019-01-03 11:10] VITALS: BMI 25.9
[2019-07-07 11:26] VITALS: BMI 27.6
[2019-08-18 15:53] LABS: Absolute Lymphocyte Count 1.68 X10^3/uL (0.83-4.51); Absolute Neutrophil Count 2.5 X10^3/uL (2.0-7.7); Basophil# 0.02 X10^3/uL; Basophil% 0.4 % (0-1); Eosinophil# 0.14 X10^3/uL; Eosinophils% 2.9 % (0-5); Hematocrit 35.2 % (40-54); Hemoglobin 11.7 g/dL (13.0-16.5); Lymphocyte # 1.68 X10^3/ul (4.0); Lymphocyte % 35.1 % (19-41); Mean Corp Hgb Conc 33.2 g/dL (32-36); Mean Corpuscular Hgb 33.1 pg (27.0-32.0); Mean Corpuscular Volume 99.4 fL (80-94); Mean Platelet Vol. 9.7 fl (6.2-12.0); Monocyte# 0.43 X10^3/uL; NRBC Flagged by Analyzer 0 % (0-5); Neutrophil # 2.51 X10^3/uL (2.7-7.7); Neutrophil % 52.4 % (47-70); Platelet Count 155 K/mm3 (150-450); RBC Distribution Width CV 13.2 % (11.6-14.6); RBC Distribution Width SD 47.8 fl (35.1-43.9); Red Blood Count 3.54 M/mm3 (4.6-6.2); White Blood Count 4.8 K/mm3 (4.4-11.0)
[2019-08-18 16:09] LABS: Vitamin D,25 Hydroxy 21.6 ng/mL
[2019-08-18 16:15] LABS: ALB/GLOB Ratio 0.9 RATIO (0.9-2.4); AST(SGOT) 13 U/L (15-37); Alanine Aminotransfer ALT/SGPT 17 U/L (16-61); Albumin, Serum 3.4 g/dL (3.2-5.0); Alkaline Phosphatase 32 U/L (45-117); Anion Gap 7 (5-15); BUN 14 mg/dL (7-18); BUN/Creat Ratio 13.7 RATIO (10-20); Calcium,Total 8.5 mg/dL (8.5-10.1); Chloride 103 mmol/L (98-107); Creatinine, Serum 1.02 mg/dL (0.70-1.30); EST Glomerular Filtration Rate 75 mL/min (>60); Est Glom Filt Rate - Afr Amer 91 mL/min (>60); Globulin 3.6 g/dL (2.2-4.2); Glucose 94 mg/dL (74-106); Potassium 3.7 mmol/L (3.5-5.1); Sodium Level 136 mmol/L (136-145); Uric Acid 3.9 mg/dL (3.5-7.2)
== END ==
PROVIDERS: PCP Family Medicine Geriatric Medicine; Visit Provider Family Medicine Geriatric Medicine
DX: I10 Essential (primary) hypertension (principal); M10.9 Gout, unspecified; E55.9 Vitamin D deficiency, unspecified
CPT/HCPCS: 36415; 80053; 82306; 84443; 84550; 85025

== ENCOUNTER → 2019-11-28 10:49 | Outpatient (CLI) | payer MEDICARE, SELFPAY ==
[2019-07-07 11:26] VITALS: BMI 27.6
[2019-11-28 12:22] LABS: Absolute Lymphocyte Count 1.66 X10^3/uL (0.83-4.51); Absolute Neutrophil Count 2.6 X10^3/uL (2.0-7.7); Basophil# 0.02 X10^3/uL; Basophil% 0.4 % (0-1); Eosinophils% 2.1 % (0-5); Hematocrit 37.1 % (40-54); Hemoglobin 12.1 g/dL (13.0-16.5); Lymphocyte # 1.66 X10^3/ul (4.0); Lymphocyte % 34.5 % (19-41); Mean Corp Hgb Conc 32.6 g/dL (32-36); Mean Corpuscular Hgb 31.8 pg (27.0-32.0); Mean Corpuscular Volume 97.4 fL (80-94); Mean Platelet Vol. 9.1 fl (6.2-12.0); Monocyte# 0.39 X10^3/uL; Monocyte% 8.1 % (0-10); NRBC Flagged by Analyzer 0 % (0-5); Neutrophil # 2.63 X10^3/uL (2.7-7.7); Neutrophil % 54.7 % (47-70); Platelet Count 162 K/mm3 (150-450); RBC Distribution Width CV 13.8 % (11.6-14.6); RBC Distribution Width SD 49.9 fl (35.1-43.9); Red Blood Count 3.81 M/mm3 (4.6-6.2); White Blood Count 4.8 K/mm3 (4.4-11.0)
[2019-11-28 12:29] LABS: Vitamin D,25 Hydroxy 20.1 ng/mL
[2019-11-28 12:34] LABS: AST(SGOT) 14 U/L (15-37); Alanine Aminotransfer ALT/SGPT 18 U/L (16-61); Albumin, Serum 3.7 g/dL (3.2-5.0); Alkaline Phosphatase 32 U/L (45-117); Anion Gap 9 (5-15); BUN 20 mg/dL (7-18); BUN/Creat Ratio 19.4 RATIO (10-20); Calcium,Total 8.8 mg/dL (8.5-10.1); Chloride 100 mmol/L (98-107); Creatinine, Serum 1.03 mg/dL (0.70-1.30); EST Glomerular Filtration Rate 74 mL/min (>60); Est Glom Filt Rate - Afr Amer 90 mL/min (>60); Globulin 3.6 g/dL (2.2-4.2); Glucose 97 mg/dL (74-106); Potassium 3.9 mmol/L (3.5-5.1); Protein, Total 7.3 g/dL (6.4-8.2); Sodium Level 136 mmol/L (136-145); Thyroid Stim Hormone (TSH) 0.96 uIU/mL (0.358-3.74); Uric Acid 6.6 mg/dL (3.5-7.2)
== END ==
PROVIDERS: PCP Family Medicine Geriatric Medicine; Visit Provider Family Medicine Geriatric Medicine
DX: I10 Essential (primary) hypertension (principal); E55.9 Vitamin D deficiency, unspecified; M10.9 Gout, unspecified
CPT/HCPCS: 36415; 80053; 82306; 84443; 84550; 85025

== ENCOUNTER → 2020-04-23 15:03 | Outpatient (CLI) | payer MEDICARE, SELFPAY ==
[2020-03-19 13:40] VITALS: BMI 27.7
[2020-04-23 16:55] LABS: Absolute Lymphocyte Count 1.67 X10^3/uL (0.83-4.51); Absolute Neutrophil Count 2.7 X10^3/uL (2.0-7.7); Basophil# 0.01 X10^3/uL; Basophil% 0.2 % (0-1); Eosinophil# 0.06 X10^3/uL; Eosinophils% 1.2 % (0-5); Hematocrit 37.4 % (40-54); Hemoglobin 12.1 g/dL (13.0-16.5); Lymphocyte # 1.67 X10^3/ul (4.0); Lymphocyte % 34.1 % (19-41); Mean Corp Hgb Conc 32.4 g/dL (32-36); Mean Corpuscular Hgb 31.3 pg (27.0-32.0); Mean Corpuscular Volume 96.9 fL (80-94); Mean Platelet Vol. 9.4 fl (6.2-12.0); Monocyte# 0.47 X10^3/uL; Monocyte% 9.6 % (0-10); NRBC Flagged by Analyzer 0 % (0-5); Neutrophil # 2.68 X10^3/uL (2.7-7.7); Neutrophil % 54.7 % (47-70); Platelet Count 165 K/mm3 (150-450); RBC Distribution Width CV 13.6 % (11.6-14.6); RBC Distribution Width SD 48.4 fl (35.1-43.9); Red Blood Count 3.86 M/mm3 (4.6-6.2); White Blood Count 4.9 K/mm3 (4.4-11.0)
[2020-04-23 17:02] LABS: Vitamin D,25 Hydroxy 14.1 ng/mL
[2020-04-23 17:12] LABS: AST(SGOT) 11 U/L (15-37); Alanine Aminotransfer ALT/SGPT 14 U/L (16-61); Albumin, Serum 3.4 g/dL (3.2-5.0); Alkaline Phosphatase 37 U/L (45-117); Anion Gap 5 (5-15); BUN 10 mg/dL (7-18); BUN/Creat Ratio 11.1 RATIO (10-20); Calcium,Total 8.5 mg/dL (8.5-10.1); Chloride 100 mmol/L (98-107); EST Glomerular Filtration Rate 86 mL/min (>60); Est Glom Filt Rate - Afr Amer 105 mL/min (>60); Globulin 3.5 g/dL (2.2-4.2); Glucose 100 mg/dL (74-106); Potassium 3.9 mmol/L (3.5-5.1); Protein, Total 6.9 g/dL (6.4-8.2); Sodium Level 132 mmol/L (136-145); Thyroid Stim Hormone (TSH) 1.25 uIU/mL (0.358-3.74); Uric Acid 5.6 mg/dL (3.5-7.2)
== END ==
PROVIDERS: PCP Family Medicine Geriatric Medicine; Visit Provider Family Medicine Geriatric Medicine
DX: E55.9 Vitamin D deficiency, unspecified (principal); I10 Essential (primary) hypertension; M10.9 Gout, unspecified
CPT/HCPCS: 36415; 80053; 82306; 84443; 84550; 85025

== ENCOUNTER → 2020-04-24 14:57 | Outpatient (CLI) | payer MEDICARE, SELFPAY ==
[2020-03-19 13:40] VITALS: BMI 27.7
--- NOTE | 2020-04-24 15:00 | US_ITS ---
STUDY: SUPERFICIAL ULTRASOUND - RIGHT BUTTOCK REASON FOR EXAM: Male, 79 years old. SUBCUTANEOUS NODULE -- SUBCUTANEOUS L UPPER BUTTOCK TECHNIQUE: A superficial ultrasound was performed with real-time and static greenwood-scale imaging. COMPARISON: None. FINDINGS: In region of palpable abnormality, directed by the patient, there is a partially shadowing, irregular bordered nodule measuring 1.8 x 1.8 x 1.1 cm although may measure up to 3.3 x 4.6 x 2.9 cm (portion is obscured by shadowing). No vascular flow is identified. US/Ext Non Vasc Limited/Soft Tiss IMPRESSION: Partially calcified soft tissue nodule incompletely visualized due to shadowing. Broad differential diagnosis including benign (partially calcified hematoma, injection granuloma, myositis ossificans) as well as malignant causes. Evaluation with CT may provide additional information/characterization. Electronically Signed: Jude Cunha MD (Brooks) at 7:35 EDT , Service support ,
== END ==
PROVIDERS: PCP Family Medicine Geriatric Medicine; Referring Provider Family Medicine Geriatric Medicine; Visit Provider Family Medicine Geriatric Medicine
DX: R22.2 Localized swelling, mass and lump, trunk (principal)
CPT/HCPCS: 76882

== ENCOUNTER → 2020-05-01 07:23 | Outpatient (CLI) | payer MEDICARE, SELFPAY ==
[2020-03-19 13:40] VITALS: BMI 27.7
--- NOTE | 2020-05-01 07:30 | CT_ITS ---
STUDY: CT PELVIS WITH CONTRAST REASON FOR EXAM: Male, 79 years old. LOCALIZED SWELLING, MASS AND LUMP, TRUNK. History of prior left inguinal hernia repair. RADIATION DOSAGE (If Supplied By Facility): CTDIvol = ( 28.19 ) mGy, DLP = ( 1093.22 ) mGycm TECHNIQUE: Transaxial imaging of the pelvis was performed without oral contrast. IV 100mL Isovue-300 was administered intravenously. Individualized dose optimization techniques were used for this CT. COMPARISON: None. FINDINGS: 1.1 cm cyst in the anterior aspect of the right kidney. Normal urinary bladder. The prostate is enlarged. It measures 5 cm x 5.3 cm. This causes indentation at the bladder base. This evidence of prostatic calcifications. Normal visualized small intestine. There are multiple colonic diverticula of the sigmoid colon consistent with chronic diverticulosis. There is no pelvic fluid. There is no pelvic lymphadenopathy or mass lesion. Normal visualized pelvic arteries. There is a 3.6 cm x 1.6 cm calcified mass in the subcutaneous tissues overlying the left buttock. There is also evidence of a 1.1 cm x 0.7 cm calcified nodular density in the subcutaneous tissues overlying the right buttock. These most likely represent calcified injection granulomas. There are diffuse degenerative changes of the visualized lumbar spine. CT/Pelvis WITH IV Contrast IMPRESSION: Prostatic enlargement with indentation of the bladder base. Calcified injection granulomas in both buttocks more prominent than on the left side. Electronically Signed: Alfonso Sarah MD at 8:40 EDT , Service support ,
== END ==
PROVIDERS: PCP Family Medicine Geriatric Medicine; Referring Provider Family Medicine Geriatric Medicine; Visit Provider Family Medicine Geriatric Medicine
DX: R22.2 Localized swelling, mass and lump, trunk (principal)
CPT/HCPCS: 72193; Q9967

== ENCOUNTER → 2020-07-24 11:07 | Outpatient (CLI) | payer MEDICARE, SELFPAY ==
[2020-07-24 12:35] LABS: Vitamin D,25 Hydroxy 20.5 ng/mL
[2020-07-24 12:36] LABS: Absolute Neutrophil Count 2.4 X10^3/uL (2.0-7.7); Basophil# 0.01 X10^3/uL; Basophil% 0.2 % (0-1); Eosinophil# 0.09 X10^3/uL; Eosinophils% 1.9 % (0-5); Hematocrit 34.3 % (40-54); Hemoglobin 11.5 g/dL (13.0-16.5); Lymphocyte % 36.5 % (19-41); Mean Corp Hgb Conc 33.5 g/dL (32-36); Mean Corpuscular Hgb 32.1 pg (27.0-32.0); Mean Corpuscular Volume 95.8 fL (80-94); Monocyte% 8.6 % (0-10); NRBC Flagged by Analyzer 0 % (0-5); Neutrophil # 2.42 X10^3/uL (2.7-7.7); Neutrophil % 51.9 % (47-70); Platelet Count 174 K/mm3 (150-450); RBC Distribution Width CV 13.6 % (11.6-14.6); Red Blood Count 3.58 M/mm3 (4.6-6.2); White Blood Count 4.7 K/mm3 (4.4-11.0)
[2020-07-24 12:47] LABS: AST(SGOT) 15 U/L (15-37); Alanine Aminotransfer ALT/SGPT 13 U/L (16-61); Albumin, Serum 3.5 g/dL (3.2-5.0); Alkaline Phosphatase 31 U/L (45-117); Anion Gap 8 (5-15); BUN 11 mg/dL (7-18); BUN/Creat Ratio 10.6 RATIO (10-20); Calcium,Total 8.5 mg/dL (8.5-10.1); Chloride 101 mmol/L (98-107); Creatinine, Serum 1.04 mg/dL (0.70-1.30); EST Glomerular Filtration Rate 73 mL/min (>60); Est Glom Filt Rate - Afr Amer 88 mL/min (>60); Globulin 3.4 g/dL (2.2-4.2); Glucose 94 mg/dL (74-106); Potassium 3.7 mmol/L (3.5-5.1); Protein, Total 6.9 g/dL (6.4-8.2); Sodium Level 135 mmol/L (136-145); Thyroid Stim Hormone (TSH) 1.29 uIU/mL (0.358-3.74); Uric Acid 6.7 mg/dL (3.5-7.2)
== END ==
PROVIDERS: PCP Family Medicine Geriatric Medicine; Visit Provider Family Medicine Geriatric Medicine
DX: E55.9 Vitamin D deficiency, unspecified (principal); I10 Essential (primary) hypertension; M10.9 Gout, unspecified
CPT/HCPCS: 36415; 80053; 82306; 84443; 84550; 85025

== ENCOUNTER → 2020-10-22 09:58 | Outpatient (CLI) | payer MEDICARE, SELFPAY ==
--- NOTE | 2020-10-22 10:04 | RAD_ITS ---
History: RIB PAIN Chest and right ribs 5 views: Findings: Blunting of the costophrenic sulcus side noted bilaterally likely related to scarring. Cardiomediastinal silhouette is normal. Loop recorded noted. No pneumothorax or hydrothorax. No rib fracture identified. Sternotomy wires and mediastinal clips noted consistent with changes of CABG. IMPRESSION: No acute cardiopulmonary disease. Intact right ribs. at 1648 Reported and signed by: Jann Delgadillo MD Electronically Signed: Jann Delgadillo MD at 16:47 EDT Tel , Service support , RAD/Ribs Uni Min 3V w/PA Chest
--- NOTE | 2020-10-22 10:05 | RAD_ITS ---
EXAM: XR SKULL, 4 OR MORE VIEWS : 1940 CLINICAL INDICATION: SKULL PAIN TECHNIQUE: Frontal, lateral and Short views of the skull. This report was created using Rev[employer] report generation technology. COMPARISON: None. FINDINGS: BONES/JOINTS: Unremarkable. No depressed skull fracture. No destructive or sclerotic abnormality observed. SINUSES: No acute abnormality. SOFT TISSUES: Unremarkable. No soft tissue swelling or gas. RAD/Skull min 4 Views IMPRESSION: No acute abnormality. at 1655 Reported and signed by: Jann Delgadillo MD Electronically Signed: Jann Delgadillo MD at 16:53 EDT Tel , Service support ,
--- NOTE | 2020-10-22 10:06 | RAD_ITS ---
History: NECK PAIN Cervical spine 3 views: Findings: No fracture or subluxation. Disc space narrowing and vertebral body spurring noted at the C4-5 and C6-7 levels. Precervical soft tissues are normal. IMPRESSION:No acute abnormality. C4-5 and C5-6 spondylosis. at 1646 Reported and signed by: Jann Delgadillo MD Electronically Signed: Jann Delgadillo MD at 16:45 EDT Tel , Service support , RAD/Cerv Spine 2 or 3 Views
--- NOTE | 2020-10-22 10:20 | RAD_ITS ---
History: HIP PAIN AP pelvis and right hip, 3 views: Findings: No fracture or subluxation. Joint spaces and soft tissues are normal. IMPRESSION: No acute abnormality. at 1646 Reported and signed by: Jann Delgadillo MD Electronically Signed: Jann Delgadillo MD at 16:45 EDT Tel , Service support , RAD/HIP, UNI W/ Pelvis 2-3 Views
[2020-10-22 12:08] LABS: Absolute Lymphocyte Count 1.06 X10^3/uL (0.83-4.51); Absolute Neutrophil Count 3.2 X10^3/uL (2.0-7.7); Basophil# 0.01 X10^3/uL; Basophil% 0.2 % (0-1); Eosinophil# 0.08 X10^3/uL; Eosinophils% 1.7 % (0-5); Hematocrit 31.6 % (40-54); Hemoglobin 10.3 g/dL (13.0-16.5); Lymphocyte # 1.06 X10^3/ul (0.83-4.51); Lymphocyte % 22.2 % (19-41); Mean Corp Hgb Conc 32.6 g/dL (32-36); Mean Corpuscular Hgb 32.2 pg (27.0-32.0); Mean Corpuscular Volume 98.8 fL (80-94); Monocyte# 0.36 X10^3/uL; Monocyte% 7.5 % (0-10); NRBC Flagged by Analyzer 0 % (0-5); Neutrophil # 3.24 X10^3/uL (2.7-7.7); Platelet Count 202 K/mm3 (150-450); RBC Distribution Width CV 13.5 % (11.6-14.6); RBC Distribution Width SD 49.1 fl (35.1-43.9); White Blood Count 4.8 K/mm3 (4.4-11.0)
[2020-10-22 12:35] LABS: Vitamin D,25 Hydroxy 18.6 ng/mL
[2020-10-22 12:43] LABS: ALB/GLOB Ratio 0.8 RATIO (0.9-2.4); AST(SGOT) 16 U/L (15-37); Alanine Aminotransfer ALT/SGPT 16 U/L (16-61); Albumin, Serum 3.1 g/dL (3.2-5.0); Alkaline Phosphatase 49 U/L (45-117); Anion Gap 10 (5-15); BUN 13 mg/dL (7-18); BUN/Creat Ratio 12.1 RATIO (10-20); Calcium,Total 8.8 mg/dL (8.5-10.1); Chloride 100 mmol/L (98-107); Creatinine, Serum 1.07 mg/dL (0.70-1.30); EST Glomerular Filtration Rate 71 mL/min (>60); Est Glom Filt Rate - Afr Amer 86 mL/min (>60); Globulin 4.1 g/dL (2.2-4.2); Glucose 92 mg/dL (74-106); Potassium 3.7 mmol/L (3.5-5.1); Protein, Total 7.2 g/dL (6.4-8.2); Sodium Level 135 mmol/L (136-145); Thyroid Stim Hormone (TSH) 1.35 uIU/mL (0.358-3.74); Uric Acid 6.2 mg/dL (3.5-7.2)
== END ==
PROVIDERS: PCP Family Medicine Geriatric Medicine; Referring Provider Family Medicine Geriatric Medicine; Visit Provider Family Medicine Geriatric Medicine
DX: R51.9 Headache, unspecified (principal); M25.551 Pain in right hip; M54.2 Cervicalgia; R07.81 Pleurodynia; E55.9 Vitamin D deficiency, unspecified; I10 Essential (primary) hypertension; M10.9 Gout, unspecified
CPT/HCPCS: 36415; 70260; 71101; 72040; 73502; 80053; 82306; 84443; 84550; 85025

== ENCOUNTER 2021-02-18 15:05 | Outpatient (CLI) | payer MEDICARE, SELFPAY ==
[2021-02-18 17:19] LABS: Absolute Lymphocyte Count 2.06 X10^3/uL (0.83-4.51); Absolute Neutrophil Count 2.3 X10^3/uL (2.0-7.7); Basophil# 0.02 X10^3/uL; Basophil% 0.4 % (0-1); Eosinophil# 0.11 X10^3/uL; Eosinophils% 2.3 % (0-5); Lymphocyte # 2.06 X10^3/ul (0.83-4.51); Lymphocyte % 42.3 % (19-41); Mean Corp Hgb Conc 33.3 g/dL (32-36); Mean Corpuscular Hgb 31.9 pg (27.0-32.0); Mean Corpuscular Volume 95.7 fL (80-94); Mean Platelet Vol. 9.7 fl (6.2-12.0); Monocyte# 0.35 X10^3/uL; Monocyte% 7.2 % (0-10); NRBC Flagged by Analyzer 0 % (0-5); Neutrophil # 2.31 X10^3/uL (2.7-7.7); Neutrophil % 47.4 % (47-70); Platelet Count 143 K/mm3 (150-450); RBC Distribution Width SD 56.4 fl (35.1-43.9); Red Blood Count 3.45 M/mm3 (4.6-6.2); White Blood Count 4.9 K/mm3 (4.4-11.0)
[2021-02-18 17:39] LABS: Vitamin D,25 Hydroxy 11.8 ng/mL
[2021-02-18 17:50] LABS: ALB/GLOB Ratio 0.9 RATIO (0.9-2.4); AST(SGOT) 15 U/L (15-37); Alanine Aminotransfer ALT/SGPT 16 U/L (16-61); Albumin, Serum 3.7 g/dL (3.2-5.0); Alkaline Phosphatase 45 U/L (45-117); Anion Gap 11 (5-15); BUN 21 mg/dL (7-18); BUN/Creat Ratio 15.9 RATIO (10-20); Chloride 97 mmol/L (98-107); Creatinine, Serum 1.32 mg/dL (0.70-1.30); EST Glomerular Filtration Rate 55 mL/min (>60); Est Glom Filt Rate - Afr Amer 67 mL/min (>60); Globulin 3.9 g/dL (2.2-4.2); Glucose 98 mg/dL (74-106); Potassium 4.2 mmol/L (3.5-5.1); Protein, Total 7.6 g/dL (6.4-8.2); Sodium Level 133 mmol/L (136-145); Thyroid Stim Hormone (TSH) 1.71 uIU/mL (0.358-3.74); Uric Acid 7.3 mg/dL (3.5-7.2)
== END 2021-02-18 23:59 | disposition short-term general hospital (02) ==
PROVIDERS: PCP Family Medicine Geriatric Medicine; Visit Provider Family Medicine Geriatric Medicine
DX: E55.9 Vitamin D deficiency, unspecified (principal); I10 Essential (primary) hypertension; M10.9 Gout, unspecified
CPT/HCPCS: 36415; 80053; 82306; 84443; 84550; 85025

== ENCOUNTER 2021-04-24 14:15 | Outpatient (CLI) | payer MEDICARE, SELFPAY ==
[2021-04-24 17:25] LABS: Albumin, Serum 3.6 g/dL (3.2-5.0); BUN 23 mg/dL (7-18); Calcium,Total 9.6 mg/dL (8.5-10.1); Chloride 100 mmol/L (98-107); Creatinine, Serum 1.35 mg/dL (0.70-1.30); EST Glomerular Filtration Rate 54 mL/min (>60); Est Glom Filt Rate - Afr Amer 65 mL/min (>60); Glucose 97 mg/dL (74-106); Potassium 4.3 mmol/L (3.5-5.1); Sodium Level 134 mmol/L (136-145)
== END 2021-04-24 23:59 | disposition home or self-care (01) ==
LOC: POLAB3 14:16
PROVIDERS: Internal Medicine Nephrology; PCP Family Medicine Geriatric Medicine; Visit Provider Family Medicine Geriatric Medicine
DX: N17.9 Acute kidney failure, unspecified (principal); N18.32 Chronic kidney disease, stage 3b
CPT/HCPCS: 36415; 80069

== ENCOUNTER 2021-04-30 17:59 | Outpatient (CLI) | payer MEDICARE, SELFPAY ==
--- NOTE | 2021-04-30 18:03 | US_ITS ---
STUDY: COMPLETE RENAL AND BLADDER ULTRASOUND EXAMINATION OF 1808 HOURS ON 04/30/2021 REASON FOR EXAM: 80-year-old male with chronic renal disease. TECHNIQUE: Ultrasound evaluation of the kidneys was performed with real-time and static rivera-scale imaging. COMPARISON: None. FINDINGS: RIGHT KIDNEY: Normal location of the right kidney, which is normal in size. The right kidney measures 9.0 cm in length by 4.7 cm in transverse diameter by 5.8 cm in AP diameter. There is a normal cortex of the right kidney. The renal cortex measures 1.7 cm. Is a 1.7 cm diameter cyst in the inferior pole of the right kidney. There is no evidence of right renal solid mass lesions.. There are no right renal calculi. There is no right hydronephrosis. DISTAL RIGHT URETER: There is non-visualization of the distal right ureter. There is no demonstrated right ureterovesical junction calculus. There is a visualized right ureteral jet. LEFT KIDNEY: Normal location of the left kidney, which is normal in size. The left kidney measures 10.5 cm in length by 4.9 cm in transverse diameter by 4.6 cm in AP diameter. There is a normal cortex of the left kidney. The renal cortex measures 1.4 cm. There are 2 simple cysts in the left kidney, a 1.4 cm diameter exophytic cyst in the superior pole, and a 1.2 cm exophytic cyst laterally in the mid body. There is no evidence of solid mass lesions. There are no left renal calculi. There is no left hydronephrosis. DISTAL LEFT URETER: There is non-visualization of the distal left ureter. There is no demonstrated left ureterovesical junction calculus. There is a visualized left ureteral jet. BLADDER: The distended urinary bladder has a volume of 81.4 ml. The empty urinary bladder has a volume of 76.1 ml. Mildly thickened and irregular wall of the bladder. There is a large 3.6 cm diameter heterogeneous prostate indenting the floor the bladder.. There is no demonstrated mass within the urinary bladder. There are no demonstrated bladder calculi. US/Kidney and Bladder IMPRESSION: 1. Normal size kidneys for an 80-year-old male. 2. Normal cortical thickness for an 80-year-old male. 3. Bilateral renal cysts: 1.7 cm in diameter simple cyst in the inferior pole of the right kidney, 1.4 cm diameter simple exophytic cyst in superior pole of left kidney, and a 1.2 cm diameter exophytic cyst laterally in the mid body of the left kidney. 4. No renal solid mass lesions. 5. No hydronephrosis or obstructive uropathy. 6. Ureteral urine jets were not visualized bilaterally. 7. Mildly thickened and irregular bladder wall with indentation of the floor the bladder by a large 3.6 cm diameter heterogeneous prostate. The thickened and irregular bladder wall may be secondary to partial urethral obstruction or may be secondary to a cystitis. Electronically Signed: Rito Rosales MD at 0:19 EDT ,
== END 2021-04-30 23:59 | disposition home or self-care (01) ==
PROVIDERS: PCP Family Medicine Geriatric Medicine; Visit Provider Internal Medicine Nephrology
DX: N18.32 Chronic kidney disease, stage 3b (principal)
CPT/HCPCS: 76770

== ENCOUNTER 2021-05-23 14:21 | Outpatient (CLI) | payer MEDICARE, SELFPAY ==
[2021-05-23 17:46] LABS: Albumin, Serum 3.4 g/dL (3.2-5.0); BUN 27 mg/dL (7-18); BUN/Creat Ratio 23.7 RATIO (10-20); Calcium,Total 8.6 mg/dL (8.5-10.1); Chloride 100 mmol/L (98-107); Creatinine, Serum 1.14 mg/dL (0.70-1.30); EST Glomerular Filtration Rate 66 mL/min (>60); Est Glom Filt Rate - Afr Amer 79 mL/min (>60); Glucose 93 mg/dL (74-106); Phosphorus 3.6 mg/dL (2.5-4.9); Sodium Level 132 mmol/L (136-145)
== END 2021-05-23 23:59 | disposition home or self-care (01) ==
LOC: POLAB3 14:21
PROVIDERS: PCP Family Medicine Geriatric Medicine; Visit Provider Internal Medicine Nephrology
DX: N17.9 Acute kidney failure, unspecified (principal); N18.32 Chronic kidney disease, stage 3b
CPT/HCPCS: 36415; 80069

== ENCOUNTER → 2021-08-19 | Outpatient (CLI) | payer MEDICARE, SELFPAY ==
[2021-08-19 17:03] LABS: Absolute Lymphocyte Count 1.42 X10^3/uL (0.83-4.51); Absolute Neutrophil Count 1.8 X10^3/uL (2.0-7.7); Basophil# 0.01 X10^3/uL; Basophil% 0.3 % (0-1); Eosinophils% 2.8 % (0-5); Hematocrit 28.3 % (40-54); Hemoglobin 9.1 g/dL (13.0-16.5); Lymphocyte # 1.42 X10^3/ul (0.83-4.51); Lymphocyte % 39.4 % (19-41); Mean Corp Hgb Conc 32.2 g/dL (32-36); Mean Corpuscular Hgb 32.6 pg (27.0-32.0); Mean Corpuscular Volume 101.4 fL (80-94); Mean Platelet Vol. 10.6 fl (6.2-12.0); Monocyte# 0.29 X10^3/uL; Monocyte% 8.1 % (0-10); NRBC Flagged by Analyzer 0 % (0-5); Neutrophil # 1.77 X10^3/uL (2.7-7.7); Neutrophil % 49.1 % (47-70); Platelet Count 101 K/mm3 (150-450); RBC Distribution Width SD 63.6 fl (35.1-43.9); Red Blood Count 2.79 M/mm3 (4.6-6.2); White Blood Count 3.6 K/mm3 (4.4-11.0)
[2021-08-19 17:27] LABS: ALB/GLOB Ratio 0.9 RATIO (0.9-2.4); AST(SGOT) 13 U/L (15-37); Alanine Aminotransfer ALT/SGPT 13 U/L (16-61); Albumin, Serum 3.3 g/dL (3.2-5.0); Alkaline Phosphatase 76 U/L (45-117); Anion Gap 7 (5-15); BUN 14 mg/dL (7-18); BUN/Creat Ratio 11.2 RATIO (10-20); Calcium,Total 8.9 mg/dL (8.5-10.1); Chloride 99 mmol/L (98-107); Creatinine, Serum 1.25 mg/dL (0.70-1.30); EST Glomerular Filtration Rate 59 mL/min (>60); Est Glom Filt Rate - Afr Amer 71 mL/min (>60); Globulin 3.7 g/dL (2.2-4.2); Glucose 90 mg/dL (74-106); Potassium 3.9 mmol/L (3.5-5.1); Sodium Level 134 mmol/L (136-145); Thyroid Stim Hormone (TSH) 2.09 uIU/mL (0.358-3.74)
== END | disposition home or self-care (01) ==
LOC: POLAB3 14:03
PROVIDERS: PCP Family Medicine Geriatric Medicine; Visit Provider Family Medicine Geriatric Medicine
DX: I10 Essential (primary) hypertension (principal); E55.9 Vitamin D deficiency, unspecified; M10.9 Gout, unspecified
CPT/HCPCS: 36415; 80053; 82306; 84443; 84550; 85025

== ENCOUNTER → 2021-08-23 | Outpatient (CLI) | payer MEDICARE, SELFPAY ==
[2021-08-23 12:39] LABS: Absolute Lymphocyte Count 1.31 X10^3/uL (0.83-4.51); Absolute Neutrophil Count 1.3 X10^3/uL (2.0-7.7); Basophil# 0.01 X10^3/uL; Basophil% 0.3 % (0-1); Eosinophil# 0.16 X10^3/uL; Eosinophils% 5.2 % (0-5); Hematocrit 29.1 % (40-54); Hemoglobin 9.2 g/dL (13.0-16.5); Lymphocyte # 1.31 X10^3/ul (0.83-4.51); Mean Corp Hgb Conc 31.6 g/dL (32-36); Mean Corpuscular Hgb 32.5 pg (27.0-32.0); Mean Corpuscular Volume 102.8 fL (80-94); Mean Platelet Vol. 9.7 fl (6.2-12.0); Monocyte# 0.25 X10^3/uL; Monocyte% 8.2 % (0-10); NRBC Flagged by Analyzer 0 % (0-5); Neutrophil # 1.32 X10^3/uL (2.7-7.7); Neutrophil % 43.3 % (47-70); Platelet Count 104 K/mm3 (150-450); RBC Distribution Width CV 17.1 % (11.6-14.6); RBC Distribution Width SD 64.4 fl (35.1-43.9); RET-HE 35.4 pg (30-35); Red Blood Count 2.83 M/mm3 (4.6-6.2); Reticulocyte Count 1.49 % (0.5-1.5); White Blood Count 3.1 K/mm3 (4.4-11.0)
[2021-08-23 13:18] LABS: Vitamin B12 290 pg/mL (211-911)
[2021-08-23 13:47] LABS: Ferritin 302 ng/mL (26-388); Iron 54 ug/dL (65-175); Iron Binding Capacity,Total 266 ug/dL (250-450); PERCENT IRON SATURATION 20.3 % (15.0-55.0)
== END | disposition home or self-care (01) ==
LOC: POLAB3 12:18
PROVIDERS: PCP Family Medicine Geriatric Medicine; Visit Provider Family Medicine Geriatric Medicine
DX: D50.9 Iron deficiency anemia, unspecified (principal)
CPT/HCPCS: 36415; 82607; 82728; 82746; 83540; 83550; 85025; 85045

== ENCOUNTER → 2021-08-31 | Outpatient (CLI) | payer MEDICARE, SELFPAY ==
[2021-08-31 12:26] LABS: Homocysteine 32.4 umol/L (3.2-10.7)
== END | disposition home or self-care (01) ==
LOC: LAB 11:32
PROVIDERS: PCP Family Medicine Geriatric Medicine; Visit Provider Family Medicine Geriatric Medicine
DX: D51.9 Vitamin B12 deficiency anemia, unspecified (principal)
CPT/HCPCS: 36415; 83090

== ENCOUNTER 2021-09-04 16:33 | Inpatient (IN) | payer MEDICARE, MEDICAID, SELFPAY ==
[2021-09-04] VITALS (10 sets, daily range): BP systolic 115–130; BP diastolic 67–85; PULSE 84–101; RESP 15–20; TEMP 36.1–36.6; O2SAT 97–100; BMI 26.4
--- NOTE | 2021-09-04 16:50 | EKG12_ITS ---
Test Reason : SOB Blood Pressure : / mmHG Vent. Rate : 097 BPM Atrial Rate : 000 BPM P-R Int : 000 ms QRS Dur : 174 ms QT Int : 418 ms P-R-T Axes : 000 032 144 degrees QTc Int : 530 ms Sinus rhythm Left bundle branch block Abnormal ECG Confirmed by SHIKHA RAMIREZ, KIZZY ([id number]), assignment editor NARENDRA PENNINGTON ([id number]) on 09/09/2021 11:09:34 AM Referred By: Keshawn Confirmed By:ASHLIE TRIVEDI MD
--- NOTE | 2021-09-04 16:50 | ED.VIS.DYS ---
HPI History of Present Illness Chief Complaint: Shortness of Breath Informant: patient and spouse/S.O. Onset/Context/Timing Onset: Month(s) (1) Context: gradual and onset Timing: Continuous and Waxes and wanes Quality: Positive for Dyspnea on exertion Current Severity: Moderate Maximum Severity: Moderate Worsened by: Exertion Relieved by: Rest Associated Symptoms Chest Pain: Positive for None Narrative Narrative: Patient and his significant other are extremely poor historians, the patient is extremely hard of hearing to the point where it is difficult to communicate basic questions with him, they are here because he is short of breath which they estimate has been progressively worsening for at least the past month, his legs been swollen for an unknown period of time, he does take Lasix, at 1 point the states that he recently received a shot of Lasix, he was in PCPs office today, notes say that he was going to follow-up for repeat visit in 24 hours, but the states that PCP changed his mind and sent him to the emergency department instead. He denies having any chest pain right now. States his breathing is worse but cannot tell me for how long. He does have a history of COPD and has been inhalers at home but no breathing machine, cannot remember if or when he has used his inhaler in the past recent time. He denies knowing having any fevers or abdominal symptoms. States he fell about a week ago and hit his head he has a bruise in the back of his head that he states is gone down quite a bit since that time. States he was not unconscious for any of that. He has not been confused according to the just hard of hearing as usual. Labs were done in the office prior to him coming here and they are pending at the time of the evaluation. It seems the patient received an injection of Rocephin in the office today and he received Lasix unknown route, he has been urinating here in the emergency department. [facility] Medical History Anxiety Atherosclerotic heart disease of [place] coronary artery without angina pectoris Atrial flutter Back pain Bilateral pulmonary embolism (11/02/15) Cardiac arrest Carotid artery disease Chronic systolic (congestive) heart failure CKD (chronic kidney disease) Claudication of both lower extremities COPD (chronic obstructive pulmonary disease) CVA (cerebral vascular accident) Depression Diverticulitis Essential (primary) hypertension GERD (gastroesophageal reflux disease) History of rectocele History of successful cardiopulmonary resuscitation HLD (hyperlipidemia) Ischemic cardiomyopathy Left bundle branch block Osteoarthritis Pancreatitis Paroxysmal atrial fibrillation Renal disease Status post placement of implantable loop recorder Syncope Home Medications apixaban 5 mg tablet 5 mg PO BID BLOOD THINNER 06/10/18 [History Last Taken 07/08/18] finasteride 5 mg tablet 5 mg PO DAILY PROSTATE 06/10/18 [History Last Taken 07/08/18] omeprazole 40 mg capsule,delayed release 40 mg PO DAILY GERD 06/10/18 [History Last Taken 07/08/18] oxybutynin chloride 5 mg tablet 5 mg PO TID BLADDER 06/10/18 [History Last Taken 07/08/18] alfuzosin 10 mg tablet,extended release 24 hr 10 mg PO DAILY 12/07/18 [History Last Taken Unknown] potassium chloride 20 mEq tablet,extended release 20 meq PO DAILY 12/07/18 [History Last Taken Unknown] sacubitril 97 mg-valsartan 103 mg tablet (Entresto) 1 tab PO BID #60 tabs 12/09/18 [Rx Last Taken Unknown] hydrocodone 7.5 mg-acetaminophen 325 mg tablet 1 tab PO Q6H 01/03/19 [History Last Taken Unknown] vortioxetine 20 mg tablet 20 mg PO DAILY DEPRESSION 07/07/19 [History Last Taken Unknown] famotidine 40 mg tablet (Pepcid) 40 mg PO DAILY 02/04/21 [History Last Taken Unknown] carvedilol 6.25 mg tablet 6.25 mg PO BID #60 tabs 02/14/21 [Rx Last Taken Unknown] pravastatin 80 mg tablet 80 mg PO QHS CHOLESTEROL #90 tabs 02/18/21 [Rx Last Taken Unknown] febuxostat 40 mg tablet 40 mg PO DAILY 09/04/21 [History Last Taken Unknown] furosemide 40 mg tablet 40 mg PO BID 09/04/21 [History Last Taken Unknown] Allergy/AdvReac Type Severity Reaction Status Date / Time Penicillins Allergy Unknown Verified 09/04/21 16:37 Family History Father Diabetes Heart disease CVA (cerebral vascular accident) Myocardial infarction Mother Heart disease Myocardial infarction Surgical History (Reviewed 02/04/21 @ 13:46 by Watson H Roof [employer]ER LET OFF HELPER, [employer]ER LET OFF HELPER-C) H/O coronary artery bypass surgery (10/30/94) History of colonoscopy History of esophagogastroduodenoscopy (EGD) History of herniorrhaphy History of loop recorder (2016) History of loop recorder (02/19/15) Social History Smoking Status: Former smoker alcohol intake: never substance use type: does not use caffeine: Yes Type: carbonated beverages ROS ROS ED Review of Systems ROS Unobtainable: other Details: very hard of hearing, no hearing aides Constitutional Constitutional ED: Reports fatigue; Denies body ache(s), chills or fever(s) Cardiovascular Cardiovascular: Reports leg edema; Denies chest pain or palpitations Respiratory/Chest Respiratory/Chest: Reports dyspnea and dyspnea on exertion; Denies cough Gastrointestinal Gastrointestinal: Denies abdominal pain, diarrhea, nausea or vomiting Musculoskeletal Musculoskeletal: Denies neck pain Integumentary Denies abscess or rash Neurologic Neurologic: Denies headache(s), paresthesias or weakness Psychiatric Psychiatric: Denies anxiety or suicidal thoughts EXAM Physical Exam Const Vital Signs: 09/04/21 16:35 09/04/21 16:37 09/04/21 16:49 Temperature 96.9 F L 96.9 F L Temperature Source Temporal Temporal Pulse Rate 96 96 Respiratory Rate 16 16 Respiratory Effort Short of Breath Respiratory Depth Normal Respiratory Pattern Normal Blood Pressure 118/85 H 125/72 H Blood Pressure Mean 96 89 Pulse Ox 100 100 Oxygen Delivery Method Room Air Room Air Room Air 09/04/21 17:08 09/04/21 17:37 09/04/21 18:34 Temperature 97.9 F Temperature Source Temporal Pulse Rate 101 H 100 96 Respiratory Rate 18 15 20 H Respiratory Effort Respiratory Depth Respiratory Pattern Blood Pressure 130/81 H Blood Pressure Mean 97 Pulse Ox 98 98 Oxygen Delivery Method Room Air Room Air Positive well nourished and well developed General Appearance ED: well developed and NAD HEENT Reports moist mucous membranes normocephalic and atraumatic Eyes PERRL and EOMs intact bilaterally Neck full ROM and supple Neck Narrative: +mild JVD Resp clear to auscultation bilaterally Resp Narrative: Mildly tachypneic noted respiratory distress. Clear and diminished throughout symmetrically. Cardio regular rate and regular rhythm Cardio Narrative: Very faint heart sounds GI non-tender and non-distended Auscultation: normoactive bowel sounds Palpation: soft Back/Spine no CVA tenderness General Back: other FROM Extremity normal to inspection General Extremety ED: Yes edema; Negative for pulses abnormal or tenderness General Extremity: edema bilateral lower extremity Details: moderate (With some serous nontender seeping at a couple of scabs); Negative for pulses abnormal Neuro CN's II-XII intact bilaterally and no sensory deficits noted Sensorium / Orientation: awake, alert, oriented to person, oriented to place and orientation impaired Motor Exam: strength 5/5 throughout Psych mental status grossly normal Skin no rashes or lesions noted and no wounds MDM MDM MDM Narrative Medical decision making narrative: Patient seems a little disoriented. We gave him duo nebulizer and albuterol aerosols, and he continued to urinate over 800 cc of urine, and he was breathing better after that. He is not hypoxic at rest. Although he looks a little tachypneic he is not in distress. His 1 view chest x-ray on my interpretation does show mild CHF with bilateral pleural effusions they are relatively small. However, the blood work from his PCPs office came back showing significant hyponatremia at 119. He has always been a little on the low side in the 130s but never this low. Given that he had a head injury last week and he is a little disoriented on my exam, I am also sending him for a head CT. I am holding off on starting any fluids because if anything he is a little fluid overloaded looking at his chest x-ray and his leg edema, and I think he should be admitted. Patient is getting agitated about laying in the same bed in the ER for a long period of time and wants to sign out. I do not think he has the capacity to make that decision at this time, his temporarily left, and the plan will be to attempt to redirect him and admit him to the hospital. See he has shows no sign of acute intracranial injury. Lab Data Attestation: I reviewed the patient's lab results. Lab results narrative: Hyponatremia 119, all other electrolytes within normal limits. Bilirubin elevated. Anemia stable. BNP pending. Radiography Diagnostic Testing: Clinical Impression(s) from Imaging Studies Chest X-Ray 09/04/21 17:00 IMPRESSION: Mild cardiomegaly with central pulmonary venous congestion and small left pleural effusion. Electronically Signed: Pasquale Matson MD at 18:08 EDT , Brain CT 09/04/21 19:12 IMPRESSION: No acute intracranial abnormality. Chronic involutional and ischemic changes of the brain. Electronically Signed: Pasquale Matson MD at 20:07 EDT , Rhythm Strip Rhythm Strip: A-fib Rate: 95 Ectopy: None EKG Initial EKG: Attestation: I personally reviewed and interpreted this EKG as follows: Interpretation: No Acute Injury Pattern, Atrial Fibrillation (vs NSR - is regular but questionable P waves vs. tremor artifact vs. afib) and LBBB Prior EKG tracings: available for review Prior: Unchanged Discharge Plan Dx/Rx/DC Orders Clinical Impression: Acute hyponatremia, Acute exacerbation of CHF (congestive heart failure), Delirium due to another medical condition Disposition Disposition: Acute Care Hospital [facility] Capacity Capacity Assessment Tool Can the patient make a choice & communicate that choice?: Yes Can the patient understand benefits, risks and alternatives?: Unable to Determine Can the patient make a logical, rational choice?: Yes Is the choice the patient makes consistent w/ their values?: No Is there an impending, emergent risk to the patient?: Yes Is there a Surrogate Available?: Yes i.e. close relative (spouse, child, parent, sibling)?: Yes ()
--- NOTE | 2021-09-04 17:00 | RAD_ITS ---
INDICATION: sob EXAMINATION/TECHNIQUE: X-RAY - XR Chest 1 View COMPARISON: 10/22/2020. FINDINGS: Central pulmonary venous congestion. Sternal cerclage wires and vascular clips are present from a prior sternotomy and coronary artery bypass graft procedure (CABG). The heart is mildly enlarged. Tortuous and calcified thoracic aorta. Small left pleural effusion. No pneumothorax. Degenerative changes of the thoracic spine. RAD/Chest 1 View (Portable) IMPRESSION: Mild cardiomegaly with central pulmonary venous congestion and small left pleural effusion. Electronically Signed: Pasquale Matson MD at 18:08 EDT ,
[2021-09-04] MEDS: Ipratropium/Albuterol Sulfate 3 ML AMPUL.NEB INHALATION (17:08)
[2021-09-04] MEDS: Albuterol 2.5 MG/3 ML VIAL.NEB. INHALATION (17:08)
--- NOTE | 2021-09-04 18:15 | ED.RN ---
Per pt SO he already got that extra Lasix in Dr. Al office per SO she is unsure how much he got. Dr Liao updated.
[2021-09-04] MEDS: Carvedilol 6.25 MG Tablet PO ×2 (18:19→22:37)
--- NOTE | 2021-09-04 19:12 | CT_ITS ---
EXAMINATION : Head CT w/out contrast HISTORY : confusion COMPARISON : None. TECHNIQUE : Multiple contiguous axial images were obtained from the skull base to the vertex without intravenous contrast. A radiation dose optimization technique was used for this scan. FINDINGS : There is no evidence for acute intracranial hemorrhage, mass effect, or midline shift. There is no extra-axial fluid collection. There are periventricular white matter changes consistent with chronic microvascular ischemic disease. There is sulcal widening and ventricular enlargement consistent with cerebral atrophy. There is normal rivera-white differentiation, without CT evidence of acute ischemia or infarct. The skull base and calvarium are unremarkable. The orbits are unremarkable. The paranasal sinuses are clear. The mastoid air cells are well-aerated. The soft tissues are unremarkable. CT/Brain/Head without Contrast IMPRESSION: No acute intracranial abnormality. Chronic involutional and ischemic changes of the brain. Electronically Signed: Pasquale Matson MD at 20:07 EDT ,
--- NOTE | 2021-09-04 20:15 | HP.PCM.HOS_ITS ---
[facility] - General General Date of Admission: 09/04/21 Date of Service: 09/04/21 Chief Complaint: Shortness of breath, sent from PCP office Dr. Farmer. HPI Narrative The patient is an 80 y/o M w/ PMHx: Chronic Hyponatremia, Chronic anemia, CAD s/p CABG, HTN, HLD, Carotid disease, Depression and Anxiety, GERD, Hx CVA, PAF, COPD, Chronic Systolic CHF/ischemic Cardiomyopathy, Hx BL PE who presents to the [facility] ED on 09/04/[address] Farmer secondary to history of increased fatigue, malaise, some exertional dyspnea as well as a 12 pound weight gain over the last 2 weeks in addition to lower extremity swelling and orthopnea which is why he presented to his PCP for evaluation prompting ED transition as noted. In the ED following diuresis patient does report feeling mildly improved since his initial presentation. Work-up in the ED included T96.9, heart rate 96, BP 118/85, respiratory rate 16, 100% on room air, chest x-ray with mild cardiomegaly with central pulmonary venous congestion and small left pleural effusion, CT brain with no acute intracranial abnormality with chronic involutional and ischemic changes, EKG with atrial fibrillation, rate controlled with left bundle branch block with no acute evidence of ischemia, recent PCP labs CBC with WC 4.8, hemoglobin 8.9, MCV 98.1, platelet 112 without marked shift, CMP with sodium 119, chloride 86, BUN/creat 22/1.10, T bili 1.50 otherwise hepatic profile unremarkable, pending BNP upon requested evaluation, troponin 20. In the ED patient administered DuoNeb therapy, Coreg, albuterol and Lasix 40 mg IV x1. COUNTS INCLUDE 234 BEDS AT THE [facility] Medical History Anxiety Atherosclerotic heart disease of [place] coronary artery without angina pectoris Atrial flutter Back pain Bilateral pulmonary embolism (11/02/15) Cardiac arrest Carotid artery disease Chronic systolic (congestive) heart failure CKD (chronic kidney disease) Claudication of both lower extremities COPD (chronic obstructive pulmonary disease) CVA (cerebral vascular accident) Depression Diverticulitis Essential (primary) hypertension GERD (gastroesophageal reflux disease) History of rectocele History of successful cardiopulmonary resuscitation HLD (hyperlipidemia) Ischemic cardiomyopathy Left bundle branch block Osteoarthritis Pancreatitis Paroxysmal atrial fibrillation Renal disease Status post placement of implantable loop recorder Syncope Home Medications apixaban 5 mg tablet 5 mg PO BID BLOOD THINNER 06/10/18 [History Last Taken 07/08/18] finasteride 5 mg tablet 5 mg PO DAILY PROSTATE 06/10/18 [History Last Taken 07/08/18] omeprazole 40 mg capsule,delayed release 40 mg PO DAILY GERD 06/10/18 [History Last Taken 07/08/18] oxybutynin chloride 5 mg tablet 5 mg PO TID BLADDER 06/10/18 [History Last Taken 07/08/18] alfuzosin 10 mg tablet,extended release 24 hr 10 mg PO DAILY 12/07/18 [History Last Taken Unknown] potassium chloride 20 mEq tablet,extended release 20 meq PO DAILY 12/07/18 [History Last Taken Unknown] sacubitril 97 mg-valsartan 103 mg tablet (Entresto) 1 tab PO BID #60 tabs 12/09/18 [Rx Last Taken Unknown] hydrocodone 7.5 mg-acetaminophen 325 mg tablet 1 tab PO Q6H 01/03/19 [History Last Taken Unknown] vortioxetine 20 mg tablet 20 mg PO DAILY DEPRESSION 07/07/19 [History Last Taken Unknown] famotidine 40 mg tablet (Pepcid) 40 mg PO DAILY 02/04/21 [History Last Taken Unknown] carvedilol 6.25 mg tablet 6.25 mg PO BID #60 tabs 02/14/21 [Rx Last Taken Unknown] pravastatin 80 mg tablet 80 mg PO QHS CHOLESTEROL #90 tabs 02/18/21 [Rx Last Taken Unknown] febuxostat 40 mg tablet 40 mg PO DAILY 09/04/21 [History Last Taken Unknown] furosemide 40 mg tablet 40 mg PO BID 09/04/21 [History Last Taken Unknown] Allergy/AdvReac Type Severity Reaction Status Date / Time Penicillins Allergy Unknown Verified 09/04/21 16:37 Family History Father Diabetes Heart disease CVA (cerebral vascular accident) Myocardial infarction Mother Heart disease Myocardial infarction Surgical History H/O coronary artery bypass surgery (10/30/94) History of colonoscopy History of esophagogastroduodenoscopy (EGD) History of herniorrhaphy History of loop recorder (2016) History of loop recorder (02/19/15) Social History (Updated 09/04/21 @ 23:[address] Kortney Alexandra MD) household members: spouse Smoking Status: Former smoker alcohol intake: never substance use type: does not use caffeine: Yes Type: carbonated beverages ROS ROS Narrative Admission Review of Systems: CONSTITUTIONAL: No weight loss, fever, chills, + weakness or fatigue, weight gain. HEENT: Eyes: No visual loss, blurred vision, double vision or yellow sclerae. Ears, Nose, Throat: No hearing loss, sneezing, congestion, runny nose or sore throat. SKIN: No rash or itching, lesions, wounds. CARDIOVASCULAR: + Edema, orthopnea, No chest pain, chest pressure or chest discomfort, palpitations, syncopal events. RESPIRATORY: + shortness of breath, No cough or sputum, wheezing, hemoptysis. GASTROINTESTINAL: No anorexia, nausea, vomiting or diarrhea, abdominal pain, melena, BRBPR. GENITOURINARY: No dysuria, frequency, urgency or retention. NEUROLOGICAL: No headache, dizziness, syncope, paralysis, ataxia, numbness or tingling in the extremities, focal weakness, change in bowel or bladder control, seizure. MUSCULOSKELETAL:+ muscle, back pain, joint pain or stiffness. HEMATOLOGIC: + anemia, bleeding or bruising. LYMPHATICS: No enlarged nodes. No history of splenectomy. PSYCHIATRIC: + history of depression or anxiety. ENDOCRINOLOGIC: No reports of sweating, cold or heat intolerance. No polyuria or polydipsia. ALLERGIES: No history of asthma, hives, eczema or rhinitis. Vital Signs Vital Signs Vital Signs: 09/04/21 16:35 09/04/21 16:37 09/04/21 16:49 Temperature 96.9 F L 96.9 F L Temperature Source Temporal Temporal Pulse Rate 96 96 Respiratory Rate 16 16 Respiratory Effort Short of Breath Respiratory Depth Normal Respiratory Pattern Normal Blood Pressure 118/85 H 125/72 H Blood Pressure Mean 96 89 Pulse Ox 100 100 Oxygen Delivery Method Room Air Room Air Room Air 09/04/21 17:08 09/04/21 17:37 09/04/21 18:34 Temperature 97.9 F Temperature Source Temporal Pulse Rate 101 H 100 96 Respiratory Rate 18 15 20 H Respiratory Effort Respiratory Depth Respiratory Pattern Blood Pressure 130/81 H Blood Pressure Mean 97 Pulse Ox 98 98 Oxygen Delivery Method Room Air Room Air Weight Weight: 164 lb Body Mass Index (BMI) 26.4 Physical Exam Narrative Physical Examination: General: Awake, alert, oriented x 3, hard of hearing, remains cooperative, seated upright in the ED bed, notes feeling improved since diuresis. Skin: Normal color, normal turgor, no icterus, no cyanosis. HEENT: AT/NC, EOMI, PERRLA, MMM, no carotid bruits, + JVD noted. Lungs: Diminished, greater bases, mild rales, appropriate effort, no rhonchi or wheezing. Heart: Regular rate and rhythm; no gallop, rub audible. Abdomen: Soft, NTTP, ND, distant normal BS, no HSM. Extremities: No cyanosis, no clubbing, bilateral pedal to mid miguel 1-2+ pitting edema. Neurological: Patient awake, alert, oriented as noted, hard of hearing, cognitive function appears baseline intact; pupils equally reactive to light and accommodation, cranial nerves II-XII grossly normal, moving all 4 extremities, no focal deficits, strength moderately globally [place] secondary to acute presentation. Psychiatric: Affect appears fatigued otherwise normal, no acute evidence of depressive or anxiety feelings. Results Rhythm Strip Rhythm Strip: A-fib Rate: 95 Ectopy: None Radiology Impression Chest X-Ray 09/04/21 17:00 IMPRESSION: Mild cardiomegaly with central pulmonary venous congestion and small left pleural effusion. Electronically Signed: Pasquale Matson MD at 18:08 EDT , Brain CT 09/04/21 19:12 IMPRESSION: No acute intracranial abnormality. Chronic involutional and ischemic changes of the brain. Electronically Signed: Pasquale Matson MD at 20:07 EDT , Assessment & Plan Assessment/Plan (1) Acute exacerbation of CHF (congestive heart failure): PLAN: Plan The patient is an 80 y/o M w/ PMHx: Chronic Hyponatremia, Chronic anemia, CAD s/p CABG, HTN, HLD, Carotid disease, Depression and Anxiety, GERD, Hx CVA, PAF, COPD, Chronic Systolic CHF/ischemic Cardiomyopathy, Hx BL PE who presents to the [facility] ED on 09/04/[address] Farmer secondary to history of increased fatigue, malaise, some exertional dyspnea as well as a 12 pound weight gain over the last 2 weeks in addition to lower extremity swelling and orthopnea which is why he presented to his PCP for evaluation prompting ED transition as noted. #1. Acute Decompensated Systolic CHF/ischemic cardiomyopathy: Patient administered IV lasix in the ED, will admit to PCU, maintain on cardiac telemetry, obtain cardiac enzyme series, obtain serial EKGs, continue IV lasix diuresis, monitor I/Os, maintain on intake restriction, continue medical therapy, obtain TSH and magnesium level. Most recent ECHO noted 09/08/17 with moderate segmental systolic dysfunction, EF 30%, septal motion consistent with IVCD, mildly enlarged LA, mild to moderate MVI, mild TVI, mild aortic stenosis, trivial PELON, RVSP 50 mmHg, transmitral diastolic flow velocity suggestive of diastolic dysfunction thus will repeat. PRN morphine to decrease afterload, continue oxygen supplementation, if necessary will position w/ upright position with legs off bed to decrease preload. #2. Acute on Chronic Hyponatremia, Hypervolemic: Secondary to acute presentation as noted #1, admission Na from PCP 119, will continue treat as noted above, TSH, Mag, UOsm, FeNa however do suspect secondary to acute presentation as noted. #3. Hypertension: Continue home regimen including Coreg, Entresto, IV Lasix as noted above with hold parameters as needed, PRN hydralazine. #4. Hyperlipidemia: Continue home statin regimen. AM FLP. #5. CAD: Status post CABG, will continue patient home apixaban, Coreg, Entresto, statin therapy. #6. Carotid disease: We will continue home apixaban, hypertensive regimen as well as statin therapy. #7. Chronic COPD: Patient not on any routine inhalers, PRN albuterol, HOB, IS parameters. #8. History CVA: We will continue patient home apixaban, statin therapy, hypertensive regimen is noted. #9. PAF: We will continue patient home apixaban and Coreg regimen. #10. History VTE: Patient with history bilateral PE, continue apixaban therapy. #11. Chronic macrocytic anemia: Admission hemoglobin 8.9, baseline appears 8-9, stable, trend. #12. Chronic thrombocytopenia, unclear specific etiology: Admission platelets 112, more recent baseline since 2021 100-1 40, continue to trend. #13. GERD: We will continue patient home PPI regimen. #14. BPH: We will continue patient home Flomax regimen. #15. DVT prophylaxis: SCDs, continue patient home apixaban regimen. #16. CODE status: Patient ADAM is his who is present and living will is currently in place. Discussed CODE status at length including difference between FULL code, DNR-CCA and DNR-CC status. Following discussions about the differences in these status, requested Full Code status which was confirmed given his age and extensive medical history. Advanced Care Planning Face to Face Time: 16 minutes. Charges/Coding Visit Charges Inpatient E&M: 69907 Init Hosp L3 Procedures Hospitalists Procedures: 59362 Advncd Care Plan 30 Min
--- NOTE | 2021-09-04 21:40 | ECHOCS_ITS ---
Reason For Study: CHF Procedure This was a 2D Doppler, Color Flow transthoracic echocardiogram. Contrast injection was performed. Exam performed portable in patient room. Left Ventricle The estimated ejection fraction is 15 %. There is evidence of diastolic dysfunction. There is severe global hypokinesis of the left ventricle. Right Ventricle Normal RV size. Normal systolic function. Atria The left atrium is mildly enlarged. The right atrium is mildly enlarged. No doppler evidence for ASD. Mitral Valve There is no mitral valve stenosis. Mild (1+) mitral valve insufficiency. Tricuspid Valve There is no tricuspid stenosis. Mild tricuspid valve insufficiency. Pulmonary artery systolic pressure is 45 mmHg. Aortic Valve Moderate diffuse aortic valve thickening. Mild aortic stenosis. Mild (1+) aortic valve insufficiency. Pulmonic Valve There is no pulmonic valvular stenosis. Mild pulmonic valve insufficiency identified. Great Vessels Normal aortic root. Pericardium/Pleural No pericardial effusion. Medication Diluted definity 2.5ml given slow IV push to enhance endocardial definition. MMode/2D Measurements & Calculations LVIDd: 5.5 cm IVSd: 0.97 cm Ao root diam: 3.2 cm LVIDs: 5.2 cm LVPWd: 0.98 cm RVDd: 3.5 cm FS: 6.4 % LAV(MOD-bp): 101.9 ml LVAd ap4: 45.2 cm2 LVAd ap2: 41.9 cm2 LAV(MOD-bp) Indexed: 55.4 ml/m2 LVLd ap4: 10.6 cm LVLd ap2: 9.1 cm LAV(MOD-sp2): 79.6 ml EDV(MOD-sp4): 161.3 ml EDV(MOD-sp2): 161.8 ml LAV(MOD-sp4): 118.5 ml EDV(sp4-el): 163.3 ml EDV(sp2-el): 163.3 ml LVAs ap4: 38.5 cm2 LVAs ap2: 35.6 cm2 LVLs ap4: 9.4 cm LVLs ap2: 8.5 cm ESV(MOD-sp4): 136.6 ml ESV(MOD-sp2): 126.4 ml ESV(sp4-el): 134.7 ml ESV(sp2-el): 126.9 ml EF(MOD-sp4): 15.3 % EF(MOD-sp2): 21.8 % EF(sp4-el): 17.5 % SV(MOD-sp4): 24.7 ml SV(MOD-sp2): 35.3 ml SV(sp4-el): 28.6 ml LA A4 area: 28.3 cm2 LA dimension(2D): 4.3 cm RA A4 area: 17.8 cm2 Time Measurements MV dec time: 0.13 sec Doppler Measurements & Calculations MV E max ed: 97.2 cm/sec Ao V2 max: 161.3 cm/sec MV A max ed: 36.5 cm/sec MV dec slope: 711.4 cm/sec2 Ao max P.4 mmHg MV E/A: 2.7 Ao V2 mean: 113.7 cm/sec Ao mean P.9 mmHg Ao V2 VTI: 35.1 cm AI max ed: 358.6 cm/sec LV V1 max: 51.3 cm/sec PA V2 max: 59.0 cm/sec AI max P.5 mmHg LV V1 max P.1 mmHg LV V1 mean P.65 mmHg AI dec slope: 225.4 cm/sec2 LV V1 mean: 38.6 cm/sec AI P1/2t: 466.0 msec LV V1 VTI: 11.3 cm TR max ed: 286.5 cm/sec TR max P.9 mmHg ECHO/Echo Complete W/ Contrast Interpretation Summary The estimated ejection fraction is 15 %. There is evidence of diastolic dysfunction. There is severe global hypokinesis of the left ventricle. The left atrium is mildly enlarged. The right atrium is mildly enlarged. Mild (1+) mitral valve insufficiency. Mild aortic stenosis. Mild (1+) aortic valve insufficiency. Ordering Physician: Kortney Alexandra Referring Physician: Jaden Farmer Chi Performed By: Tari Knutson, RDCS, RVT
[2021-09-04] MEDS: Morphine 2 MG/ML Syringe IV (22:36)
[2021-09-04] MEDS: Oxybutynin 5 MG Tablet PO (22:37)
[2021-09-04] MEDS: Pravastatin 80 MG Tablet PO (22:37)
[2021-09-04] MEDS: APIXABAN 5 MG TABLET PO (22:37)
[2021-09-04] MEDS: SACUBITRIL/VALSARTAN 97-103 MG TABLET 1 EACH PO (22:38)
[2021-09-04 22:44] LABS: Troponin-I HS 18 pg/mL (3.0-78.0)
--- NOTE | 2021-09-04 23:05 | NURSING ---
Called pharmacy to notify med list updated, med verified w/ SO.
[2021-09-04] MEDS: MELATONIN 3 MG TABLET PO (23:57)
[2021-09-04] MEDS: Acetaminophen 325 MG Tablet 650 MG PO (23:57)
[2021-09-05] VITALS (10 sets, daily range): BP systolic 97–139; BP diastolic 49–102; PULSE 62–77; RESP 16–18; TEMP 35.8–36.3; O2SAT 92–100
[2021-09-05 00:52] LABS: Troponin-I HS 20 pg/mL (3.0-78.0)
[2021-09-05 03:18] LABS: Urine Sodium 50 mmol/L (Not Establ.)
[2021-09-05 03:36] LABS: Osmolality, Urine 258 mOsm/KG
[2021-09-05] MEDS: Pramipexole Di-HCl 0.5 MG Tablet PO (03:47)
[2021-09-05] MEDS: 0.9% Saline Lock 10 ML Syringe IV ×4 (03:47→16:59)
[2021-09-05] MEDS: Morphine 2 MG/ML Syringe IV ×2 (03:47→14:25)
[2021-09-05 04:16] LABS: Absolute Lymphocyte Count 0.81 X10^3/uL (0.83-4.51); Absolute Neutrophil Count 2.3 X10^3/uL (2.0-7.7); Basophil# 0.01 X10^3/uL; Basophil% 0.3 % (0-1); Eosinophil# 0.11 X10^3/uL; Eosinophils% 3.1 % (0-5); Hematocrit 24.1 % (40-54); Hemoglobin 8.1 g/dL (13.0-16.5); Lymphocyte # 0.81 X10^3/ul (0.83-4.51); Lymphocyte % 23.1 % (19-41); Mean Corp Hgb Conc 33.6 g/dL (32-36); Mean Corpuscular Hgb 32.7 pg (27.0-32.0); Mean Corpuscular Volume 97.2 fL (80-94); Mean Platelet Vol. 10.8 fl (6.2-12.0); Monocyte% 8.5 % (0-10); NRBC Flagged by Analyzer 0 % (0-5); Neutrophil # 2.27 X10^3/uL (2.7-7.7); Neutrophil % 64.7 % (47-70); POSITIVE COUNT YES; Platelet Count 91 K/mm3 (150-450); RBC Distribution Width CV 16.1 % (11.6-14.6); RBC Distribution Width SD 57.9 fl (35.1-43.9); Red Blood Count 2.48 M/mm3 (4.6-6.2); White Blood Count 3.5 K/mm3 (4.4-11.0)
--- NOTE | 2021-09-05 05:08 | NURSING ---
Pts primary rn aware of na level of 119 at this time.
[2021-09-05 05:10] LABS: AST(SGOT) 19 U/L (15-37); Alanine Aminotransfer ALT/SGPT 17 U/L (16-61); Alkaline Phosphatase 74 U/L (45-117); Anion Gap 12 (5-15); BUN 25 mg/dL (7-18); BUN/Creat Ratio 23.1 RATIO (10-20); Calcium,Total 8.1 mg/dL (8.5-10.1); Chloride 87 mmol/L (98-107); Cholesterol 93 mg/dL (200); Creatinine, Serum 1.08 mg/dL (0.70-1.30); EST Glomerular Filtration Rate 70 mL/min (>60); Est Glom Filt Rate - Afr Amer 84 mL/min (>60); Estimated Creatinine Clearance 49.23 ml/min; Globulin 3.1 g/dL (2.2-4.2); Glucose 94 mg/dL (74-106); High Density Lipoprotein 53 mg/dL; Potassium 4.5 mmol/L (3.5-5.1); Protein, Total 6.1 g/dL (6.4-8.2); Sodium Level 119 mmol/L (136-145); Thyroid Stim Hormone (TSH) 2.29 uIU/mL (0.358-3.74); Triglycerides 69 mg/dL; Troponin-I HS 20 pg/mL (3.0-78.0); Very Low Density Lipoprotein 14 mg/dL (5-40)
[2021-09-05] MEDS: Oxybutynin 5 MG Tablet PO ×3 (06:10→21:21)
--- NOTE | 2021-09-05 06:23 | US_ITS ---
STUDY: RENAL ULTRASOUND - COMPLETE REASON FOR EXAM: Male, 80 years old. Back pain. TECHNIQUE: Ultrasound evaluation of the kidneys was performed with real-time and static rivera-scale imaging. COMPARISON: Comparison is made with prior examination dated 04/30/2021. FINDINGS: RIGHT KIDNEY: Normal location of the right kidney, which is normal in size. The right kidney measures 9.9 cm x 5.27 x 4.9 cm. There is a normal cortex of the right kidney. The renal cortex measures 1 cm. There is a 1.4 cm x 1.3 cm x 1.2 cm cyst in the lower pole. There are no right renal calculi. There is no right hydronephrosis. DISTAL RIGHT URETER: There is non-visualization of the distal right ureter. There is no demonstrated right ureterovesical junction calculus. There is a visualized right ureteral jet. LEFT KIDNEY: Normal location of the left kidney, which is normal in size. The left kidney measures 10.7 cm x 5.2 cm x 5.5 cm. There is a normal cortex of the left kidney. The renal cortex measures 1 cm. There are 2 renal cysts. The largest cyst measures 1.5 cm x 1.3 cm x 1.2 cm. There are no left renal calculi. There is no left hydronephrosis. DISTAL LEFT URETER: There is non-visualization of the distal left ureter. There is no demonstrated left ureterovesical junction calculus. There is a visualized left ureteral jet. BLADDER: The distended urinary bladder has a volume of 212 ml. There is a normal wall thickness of the distended urinary bladder. There is no demonstrated mass within the urinary bladder. There are no demonstrated bladder calculi. Prostatic enlargement. Small amount of free fluid is seen in both upper quadrants. US/Kidney and Bladder IMPRESSION: Bilateral renal cysts. Small amount of ascites. Electronically Signed: Alfonso Sarah MD at 15:25 EDT ,
[2021-09-05] MEDS: HYDROCODONE/APAP 7.5-325/15ML 15 ML UDC PO ×3 (08:46→18:38)
[2021-09-05] MEDS: APIXABAN 5 MG TABLET PO ×2 (08:48→21:21)
[2021-09-05] MEDS: Finasteride 5 MG Tablet PO (08:48)
[2021-09-05] MEDS: Potassium Chloride Oral Tablet 20 MEQ PO (08:49)
[2021-09-05] MEDS: Furosemide 40 MG/4 ML Vial IV ×2 (08:49→16:59)
[2021-09-05] MEDS: SACUBITRIL/VALSARTAN 97-103 MG TABLET 1 EACH PO ×2 (08:49→21:21)
[2021-09-05] MEDS: Carvedilol 6.25 MG Tablet PO ×2 (08:49→16:58)
[2021-09-05] MEDS: Famotidine 20 MG Tablet 40 MG PO (08:50)
[2021-09-05] MEDS: Pantoprazole Sodium 40 MG Tablet PO (08:50)
[2021-09-05] MEDS: Febuxostat 40 MG TABLET PO (08:50)
--- NOTE | 2021-09-05 08:50 | PCM.CONS.R ---
Assessment & Plan Assessment/Plan (1) Acute hyponatremia: PLAN: Likely due to volume expansion. Continue diuretics and fluid restriction. Continue to monitor sodium level. (2) Acute exacerbation of CHF (congestive heart failure): PLAN: Continue diuretic (3) Ischemic cardiomyopathy: (4) Paroxysmal atrial fibrillation: (5) Chronic systolic (congestive) heart failure: (6) Essential (primary) hypertension: (7) HLD (hyperlipidemia): QUALIFIERS: Hyperlipidemia type: unspecified Qualified Code(s): E78.5 - Hyperlipidemia, unspecified (8) H/O coronary artery bypass surgery: (9) Stage 3b chronic kidney disease (CKD): HPI Consult Data Date of Consult: 09/05/21 HPI Narrative Reason for Consultation: hyponatremia HPI Narrative: MARGARETTE ROBLEDO, is a 80 M who presents with increased shortness of breath, leg edema and 12 pound weight gain over the last 2 weeks. He was taking only 1 Lasix a day instead of 2. Consulted for hyponatremia. Sodium 119 on admission with urine sodium 50. He received Lasix IV x1. He is on a fluid restriction. Sodium level 134 on August 19. at bedside to provide history. Patient very hard of hearing and unreliable historian. He complains of pain in his right inguinal area with bulging suggestive of an inguinal hernia. He he and his thought it was his prostate. He had no urinary complaints. Chest x-ray with mild cardiomegaly with central pulmonary venous congestion and small left pleural effusion, CT brain with no acute intracranial abnormality with chronic involutional and ischemic changes, EKG with atrial fibrillation. Creatinine 1.10 on admission. [facility] Medical History Anxiety Atherosclerotic heart disease of [place] coronary artery without angina pectoris Atrial flutter Back pain Bilateral pulmonary embolism (11/02/15) Cardiac arrest Carotid artery disease Chronic systolic (congestive) heart failure CKD (chronic kidney disease) Claudication of both lower extremities COPD (chronic obstructive pulmonary disease) CVA (cerebral vascular accident) Depression Diverticulitis Essential (primary) hypertension GERD (gastroesophageal reflux disease) History of rectocele History of successful cardiopulmonary resuscitation HLD (hyperlipidemia) Ischemic cardiomyopathy Left bundle branch block Osteoarthritis Pancreatitis Paroxysmal atrial fibrillation Renal disease Status post placement of implantable loop recorder Syncope Home Medications apixaban 5 mg tablet 5 mg PO BID BLOOD THINNER 06/10/18 [History Last Taken 07/08/18] finasteride 5 mg tablet 5 mg PO DAILY PROSTATE 06/10/18 [History Last Taken 07/08/18] omeprazole 40 mg capsule,delayed release 40 mg PO DAILY GERD 06/10/18 [History Last Taken 07/08/18] oxybutynin chloride 5 mg tablet 5 mg PO TID BLADDER 06/10/18 [History Last Taken 07/08/18] alfuzosin 10 mg tablet,extended release 24 hr 10 mg PO DAILY 12/07/18 [History Last Taken Unknown] potassium chloride 20 mEq tablet,extended release 20 meq PO DAILY 12/07/18 [History Last Taken Unknown] sacubitril 97 mg-valsartan 103 mg tablet (Entresto) 1 tab PO BID #60 tabs 12/09/18 [Rx Last Taken Unknown] hydrocodone 7.5 mg-acetaminophen 325 mg tablet 1 tab PO Q6H Check with primary doctor 01/03/19 [History Last Taken Unknown] vortioxetine 20 mg tablet 20 mg PO DAILY DEPRESSION 07/07/19 [History Last Taken Unknown] famotidine 40 mg tablet (Pepcid) 40 mg PO DAILY 02/04/21 [History Last Taken Unknown] carvedilol 6.25 mg tablet 6.25 mg PO BID #60 tabs 02/14/21 [Rx Last Taken Unknown] pravastatin 80 mg tablet 80 mg PO QHS CHOLESTEROL #90 tabs 02/18/21 [Rx Last Taken Unknown] febuxostat 40 mg tablet 40 mg PO DAILY 09/04/21 [History Last Taken Unknown] furosemide 40 mg tablet 40 mg PO BID 09/04/21 [History Last Taken Unknown] Allergy/AdvReac Type Severity Reaction Status Date / Time Penicillins Allergy Unknown Verified 09/04/21 16:37 Family History Father Diabetes Heart disease CVA (cerebral vascular accident) Myocardial infarction Mother Heart disease Myocardial infarction Surgical History H/O coronary artery bypass surgery (10/30/94) History of colonoscopy History of esophagogastroduodenoscopy (EGD) History of herniorrhaphy History of loop recorder (2015) History of loop recorder (02/19/15) Social History (Updated 09/04/21 @ 23:[address] Kortney Alexandra MD) household members: spouse Smoking Status: Former smoker alcohol intake: never substance use type: does not use caffeine: Yes Type: carbonated beverages ROS Constitutional Constitutional: Reports weakness and weight gain Eyes Eyes: Denies loss of vision Cardiovascular Cardiovascular: Reports dyspnea on exertion, irregular heart rhythm and leg edema; Denies chest pain Respiratory/Chest Respiratory/Chest: Reports dyspnea on exertion Gastrointestinal Gastrointestinal: Reports anorexia and weight changes; Denies diarrhea, nausea or vomiting Genitourinary Genitourinary: Denies oliguria Musculoskeletal Musculoskeletal: Denies myalgias Integumentary Integumentary: Denies rash Neurologic Neurologic: Reports weakness Hematologic/Lymphatic Hematologic/Lymphatic: Reports anemia Physical Exam Const alert, oriented x3 and no apparent distress Constitutional Narrative: Hard of hearing, poor historian Neck supple Resp clear to auscultation bilaterally Cardio Rhythm: abnormal rhythm GI non-tender and non-distended GI Narrative: Right inguinal hernia with tenderness to palpation Auscultation: normoactive bowel sounds Palpation: soft Extremity General Extremity: edema bilateral (Mild) Neuro Sensorium / Orientation: awake and alert Psych cooperative Memory / Cognition: cognition impaired Lab / Micro Data Result Diagrams: 09/05/21 03:45 09/05/21 03:45 Labs: Laboratory Results - last 24 hr 09/04/21 16:16: Magnesium 2.0 09/04/21 22:00: Troponin I High Sens 18 09/05/21 00:15: Troponin I High Sens 20 09/05/21 02:00: Urine Osmolality 258, Ur Random Sodium 50, Urine Creatinine 28.10 09/05/21 03:45: WBC 3.5 L, RBC 2.48 L, Hgb 8.1 L, Hct 24.1 L, MCV 97.2 H, MCH 32.7 H, MCHC 33.6, RDW Std Deviation 57.9 H, RDW Coeff of Maikol 16.1 H, Plt Count 91 L, MPV 10.8, Immature Gran % (Auto) 0.300, Neut % (Auto) 64.7, Lymph % (Auto) 23.1, Edwards % (Auto) 8.5, Eos % (Auto) 3.1, Baso % (Auto) 0.3, Absolute Neuts (auto) 2.3, Absolute Lymphs (auto) 0.81 L, Nucleated RBC % 0 09/05/21 03:45: Sodium 119 L*, Potassium 4.5, Chloride 87 L, Carbon Dioxide 20.0 L, Anion Gap 12, BUN 25 H, Creatinine 1.08, Estim Creat Clear Calc 49.23, Est GFR (MDRD) Af Amer 84, Est GFR (MDRD) Non-Af 70, BUN/Creatinine Ratio 23.1 H, Glucose 94, Calcium 8.1 L, Total Bilirubin 1.30 H, AST 19, ALT 17, Alkaline Phosphatase 74, Troponin I High Sens 20, Total Protein 6.1 L, Albumin 3.0 L, Globulin 3.1, Albumin/Globulin Ratio 1.0, Triglycerides 69, Cholesterol 93, LDL Cholesterol 26, VLDL Cholesterol 14, HDL Cholesterol 53, TSH 2.29 Rhythm Strip Rhythm Strip: A-fib Rate: 95 Ectopy: None Radiology Impression Chest X-Ray 09/04/21 17:00 IMPRESSION: Mild cardiomegaly with central pulmonary venous congestion and small left pleural effusion. Electronically Signed: Pasquale Matson MD at 18:08 EDT , Brain CT 09/04/21 19:12 IMPRESSION: No acute intracranial abnormality. Chronic involutional and ischemic changes of the brain. Electronically Signed: Pasquale Matson MD at 20:07 EDT ,
--- NOTE | 2021-09-05 10:30 | CASEMGMT ---
RN CM Face to Face with patient for initial transition planning/care coordination assessment. RN CM introduced self and role at [facility]. Patient lying in bed, alert and oriented. Patient willing to participate in assessment and is able to answer all questions appropriately. Care providers, pharmacy, and demographics verified. Patient wishes to discharge home, denies need for home health at this time. Patient states he has no further needs or concerns at this time. CM to follow for discharge planning needs that may arise. PCP: Darian Specialists: Ta, urologist; Shawn, housekeeper caregiver [facility]acy: [facility] Insurance: [facility] Dual Prescription Benefit: yes Living Will/HPOA: none LNOK: step son, significant other Living Arrangements: Patient lives with significant other in a mobile home with 4 steps and railing to enter the home. Patient states he was independent at home. Transportation: self, significant other DME/HHC: Patient states he has shower chair, cane, grab bars, walker, wheelchair. Patient denies previous HHC or SNF. Disposition Plan: Patient to discharge home with family support and follow-up plans in place. Taina MOONEY, RN, CM
--- NOTE | 2021-09-05 12:35 | PN.HOSP_ITS ---
Documented by User: Denita Shankar NP, [employer] 09/05/21 13:06 Subjective Subjective Patient seen and examined. Reports improvement in breathing however continues to have shortness of breath. Complains of right groin pain. Objective Data Objective Data Vital Signs: Vital Signs Temp Pulse Resp BP Pulse Ox O2 Del Method 96.5 F L 74 18 100/67 100 Room Air 09/05/21 08:42 09/05/21 08:42 09/05/21 08:42 09/05/21 08:42 09/05/21 08:42 09/05/21 09:06 Oxygen Delivery Method Room Air Weight: 160 lb 0.889 oz Body Mass Index (BMI) 26.4 Intake & Output: Intake and Output for Last 24 Hours 09/03/21 09/04/21 09/05/21 23:59 23:59 23:59 Output Total 1100 / 1100 100 / 100 Balance -1100 / -1100 -100 / -100 Lab / Micro Data Result Diagrams: 09/05/21 03:45 09/05/21 03:45 Labs: Laboratory Results - last 24 hr 09/04/21 16:16: Magnesium 2.0 09/04/21 22:00: Troponin I High Sens 18 09/05/21 00:15: Troponin I High Sens 20 09/05/21 02:00: Urine Osmolality 258, Ur Random Sodium 50, Urine Creatinine 28.10 09/05/21 03:45: WBC 3.5 L, RBC 2.48 L, Hgb 8.1 L, Hct 24.1 L, MCV 97.2 H, MCH 32.7 H, MCHC 33.6, RDW Std Deviation 57.9 H, RDW Coeff of Maikol 16.1 H, Plt Count 91 L, MPV 10.8, Immature Gran % (Auto) 0.300, Neut % (Auto) 64.7, Lymph % (Auto) 23.1, Mitchell % (Auto) 8.5, Eos % (Auto) 3.1, Baso % (Auto) 0.3, Absolute Neuts (auto) 2.3, Absolute Lymphs (auto) 0.81 L, Nucleated RBC % 0 09/05/21 03:45: Sodium 119 L*, Potassium 4.5, Chloride 87 L, Carbon Dioxide 20.0 L, Anion Gap 12, BUN 25 H, Creatinine 1.08, Estim Creat Clear Calc 49.23, Est GFR (MDRD) Af Amer 84, Est GFR (MDRD) Non-Af 70, BUN/Creatinine Ratio 23.1 H, Glucose 94, Calcium 8.1 L, Total Bilirubin 1.30 H, AST 19, ALT 17, Alkaline Phosphatase 74, Troponin I High Sens 20, Total Protein 6.1 L, Albumin 3.0 L, Globulin 3.1, Albumin/Globulin Ratio 1.0, Triglycerides 69, Cholesterol 93, LDL Cholesterol 26, VLDL Cholesterol 14, HDL Cholesterol 53, TSH 2.29 Radiography Diagnostic Testing: Radiology Impression Chest X-Ray 09/04/21 17:00 IMPRESSION: Mild cardiomegaly with central pulmonary venous congestion and small left pleural effusion. Electronically Signed: Pasquale Matson MD at 18:08 EDT , Brain CT 09/04/21 19:12 IMPRESSION: No acute intracranial abnormality. Chronic involutional and ischemic changes of the brain. Electronically Signed: Pasquale Matson MD at 20:07 EDT , Echocardiogram 09/04/21 21:40 Interpretation Summary The estimated ejection fraction is 15 %. There is evidence of diastolic dysfunction. There is severe global hypokinesis of the left ventricle. The left atrium is mildly enlarged. The right atrium is mildly enlarged. Mild (1+) mitral valve insufficiency. Mild aortic stenosis. Mild (1+) aortic valve insufficiency. ___ Ordering Physician: Kortney Alexandra Referring Physician: Jaden Farmer Chi Performed By: Tari Knutson, RDCS, RVT Rhythm Strip Rhythm Strip: A-fib Rate: 95 Ectopy: None Physical Exam Const alert, oriented x3 and no apparent distress Orientation / Consciousness: awake, oriented to person, oriented to place and oriented to time HEENT normocephalic and moist oral mucous membranes Eyes PERRL, EOMs intact bilaterally and conjunctivae normal Neck no lymphadenopathy Resp normal respiratory effort and clear to auscultation bilaterally Cardio regular rate, regular rhythm and no murmurs Peripheral Pulses: pulses 2+ throughout GI normal to inspection, nondistended, normoactive bowel sounds, non-tender and non-distended Extremity normal to inspection Skin no rashes or lesions noted Lesions: no lesions Rashes: no rashes Trauma: no lacerations or abrasions Neuro CN's II-XII intact bilaterally, no focal motor deficits, no sensory deficits noted and deep tendon reflexes 2+ bilaterally Psych mental status grossly normal and affect normal Assessment & Plan Assessment/Plan (1) Acute exacerbation of CHF (congestive heart failure): PLAN: Plan 1. Acute on chronic heart failure with reduced ejection fraction/ischemic cardiomyopathy-chest x-ray with pulmonary congestion, small left pleural effusion. BNP pending. IV Lasix. Strict I&O. Echocardiogram June 2018 demonstrated an EF of 15 to 20%. According to outpatient records, patient was previously scheduled to undergo defibrillator placement in 2019 and decided against procedure. Continue with aggressive medical management. 2. Acute on chronic Hyponatremia-nephrology consulted. Likely related to hypervolemia as a result of #1. Urine studies and renal ultrasound ordered. Trend BMP. 3. Right groin pain/hernia-General surgery consulted for evaluation. 4. Hypertension-stable, continue Entresto, carvedilol. 5. Hyperlipidemia-continue statin. 6. CAD with history of CABG-continue Eliquis, carvedilol, Entresto, statin. 7. Chronic COPD-no exacerbation. As needed albuterol aerosol. 8. History of CVA-on Eliquis, statin. 9. Paroxysmal atrial fibrillation-continue Eliquis, carvedilol. 10. History of PE-on anticoagulation with Eliquis. 11. Chronic macrocytic anemia/chronic thrombocytopenia-at baseline. 12. GERD- continue PPI. 13. BPH-continue Flomax. DVT prophylaxis- Eliquis This patient was seen by JIA Mckeon under the supervision of Dr. Steen. Time spent examining patient, reviewing data and subsequent management of care: 15 minutes Documented by User: Dr. Amanda Steen MD 09/05/21 13:57 Objective Data Lab / Micro Data Result Diagrams: 09/05/21 03:45 09/05/21 03:45 Assessment & Plan Assessment/Plan (1) Acute exacerbation of CHF (congestive heart failure): Charges/Coding Addendum Addendum: Patient seen by Denita RO under my supervision Patient seen and examined. His shortness of breath had improved. His was by his bedside. Patient is very hard of hearing. He complained of right groin pain and swelling which he said has been going on for over a year. Patient and his thought the groin swelling was due to his prostate. Previously he c ould push the swelling back into his abdomen but now he is unable to. Review of systems otherwise negative. He has been diuresed with Lasix. O/E: Const alert, oriented x3 and no apparent distress General Appearance: cooperative HEENT normocephalic, head/scalp atraumatic, hearing grossly normal bilaterally and moist oral mucous membranes Eyes PERRL, EOMs intact bilaterally and conjunctivae normal Neck no lymphadenopathy, supple and no JVD Resp normal respiratory effort and clear to auscultation bilaterally Cardio regular rate, regular rhythm, S1 normal heart sound, S2 normal heart sound and no murmurs GI normal to inspection, nondistended, normoactive bowel sounds and soft to palpation has right groin inguinal hernia that is not reducible, and tender to touch Extremity normal to inspection, full ROM and no clubbing, cyanosis, 1+ bipedal pitting edema Skin no rashes or lesions noted Neuro oriented x3, CN's II-XII intact bilaterally and moves all extremities Sensorium / Orientation: awake and alert Psych affect normal Assessment and plan #Acute on chronic HFrEF * being diuresed with IV lasix. * monitor intake and output. Fluid restriction to 1500cc daily * echo from June 2018 showed EF of 15-20% * 2D echo ordered * per records, he was supposed to be fitted with a defibrillator in 2019, but opted against the procedure * on entresto and carvedilol * #Acute on chronic hyponatremia * sodium is 119 today. * nephrology consulted. Appreciate rec's * #Right groin hernia * not reducible. * general surgery consulted. await rec's * pain meds as tolerated * #Hyperlipidemia: on statin #Hypertension: on entresto and carvedilol #history fo CVA: on statin, carvedilol adn eliquis #History of afib: on carvedilol and eliquis. Rest of chronic problems include a history of PE, for which he is anticoagulated on eliquis. rest as per Denita Shankar [employer]'s note, which I have reviewed and endorsed. Total time I spent on the care of the patient today is 22 mins, with Denita Shankar spending 15 mins, making a total of 37 mins. * Visit Charges Inpatient E&M: 99770 Subs Hosp L3
--- NOTE | 2021-09-05 15:24 | CON.PCM.SX_ITS ---
Assessment & Plan Assessment/Plan (1) Reducible right inguinal hernia: PLAN: Plan On exam patient does have a reducible right inguinal hernia. It was easily able to be reduced on exam with gentle pressure. Did instruct patient on how to try to self reduce as that likely goes in and out multiple times a day. Patient can follow-up in office as an outpatient if this continues to be an issue and painful. Porsche Mackenzie M.D. Pager: [phone] [facility] [address] [place] [address], [facility], [address] [place] [address] Office: [phone] HPI Consult Data Date of Consult: 09/06/21 HPI Narrative HPI Narrative: MARGARETTE ROBLEDO, is a 80 M who is admitted due to acute extubation of CHF. Patient also complains of right groin bulge and pain. Patient states more recently has been more painful and the bulge is little larger than previous. Unable to tell me exactly how long the bulge has been there for. Consulted by hospitalist for painful right inguinal hernia. [facility] Medical History Anxiety Atherosclerotic heart disease of [place] coronary artery without angina pectoris Atrial flutter Back pain Bilateral pulmonary embolism (11/02/15) Cardiac arrest Carotid artery disease Chronic systolic (congestive) heart failure CKD (chronic kidney disease) Claudication of both lower extremities COPD (chronic obstructive pulmonary disease) CVA (cerebral vascular accident) Depression Diverticulitis Essential (primary) hypertension GERD (gastroesophageal reflux disease) History of rectocele History of successful cardiopulmonary resuscitation HLD (hyperlipidemia) Ischemic cardiomyopathy Left bundle branch block Osteoarthritis Pancreatitis Paroxysmal atrial fibrillation Renal disease Status post placement of implantable loop recorder Syncope Home Medications apixaban 5 mg tablet 5 mg PO BID BLOOD THINNER 06/10/18 [History Last Taken 07/08/18] finasteride 5 mg tablet 5 mg PO DAILY PROSTATE 06/10/18 [History Last Taken 07/08/18] omeprazole 40 mg capsule,delayed release 40 mg PO DAILY GERD 06/10/18 [History Last Taken 07/08/18] oxybutynin chloride 5 mg tablet 5 mg PO TID BLADDER 06/10/18 [History Last Taken 07/08/18] alfuzosin 10 mg tablet,extended release 24 hr 10 mg PO DAILY 12/07/18 [History Last Taken Unknown] potassium chloride 20 mEq tablet,extended release 20 meq PO DAILY 12/07/18 [History Last Taken Unknown] sacubitril 97 mg-valsartan 103 mg tablet (Entresto) 1 tab PO BID #60 tabs 12/09/18 [Rx Last Taken Unknown] hydrocodone 7.5 mg-acetaminophen 325 mg tablet 1 tab PO Q6H Check with primary doctor 01/03/19 [History Last Taken Unknown] vortioxetine 20 mg tablet 20 mg PO DAILY DEPRESSION 07/07/19 [History Last Taken Unknown] famotidine 40 mg tablet (Pepcid) 40 mg PO DAILY 02/04/21 [History Last Taken Unknown] carvedilol 6.25 mg tablet 6.25 mg PO BID #60 tabs 02/14/21 [Rx Last Taken Unknown] pravastatin 80 mg tablet 80 mg PO QHS CHOLESTEROL #90 tabs 02/18/21 [Rx Last Taken Unknown] febuxostat 40 mg tablet 40 mg PO DAILY 09/04/21 [History Last Taken Unknown] furosemide 40 mg tablet 40 mg PO BID 09/04/21 [History Last Taken Unknown] Allergy/AdvReac Type Severity Reaction Status Date / Time Penicillins Allergy Unknown Verified 09/04/21 16:37 Family History Father Diabetes Heart disease CVA (cerebral vascular accident) Myocardial infarction Mother Heart disease Myocardial infarction Surgical History H/O coronary artery bypass surgery (10/30/94) History of colonoscopy History of esophagogastroduodenoscopy (EGD) History of herniorrhaphy History of loop recorder (2016) History of loop recorder (02/19/15) Social History (Updated 09/04/21 @ 23:[address] Kortney Alexandra MD) household members: spouse Smoking Status: Former smoker alcohol intake: never substance use type: does not use caffeine: Yes Type: carbonated beverages ROS Constitutional Constitutional: Denies fever(s) Eyes Eyes: Denies loss of central vision ENT HEENT: Reports hearing loss Cardiovascular Cardiovascular: Denies chest pain Respiratory/Chest Respiratory/Chest: Reports shortness of breath with exertion Gastrointestinal Gastrointestinal: Reports abdominal pain; Denies nausea or vomiting Genitourinary Genitourinary: Denies dysuria Integumentary Integumentary: Denies jaundice Neurologic Neurologic: Denies focal weakness Psychiatric Psychiatric: Denies depression Hematologic/Lymphatic Hematologic/Lymphatic: Reports easy bleeding and easy bruising Physical Exam Const alert and no apparent distress General Appearance: cooperative HEENT normocephalic Neck General: normal visual inspection Resp normal respiratory effort Cardio Rate: regular rate GI soft to palpation and non-tender GI Narrative: Tender in the right groin, obvious bulge on exam able to be reduced at bedside. No hernia in the left inguinal Extremity normal to inspection Neuro Speech: speech normal Psych mental status grossly normal Lab / Micro Data Result Diagrams: 09/06/21 03:50 09/06/21 03:50 Labs: Laboratory Results - last 24 hr 09/04/21 16:16: Magnesium 2.0 09/04/21 22:00: Troponin I High Sens 18 09/05/21 00:15: Troponin I High Sens 20 09/05/21 02:00: Urine Osmolality 258, Ur Random Sodium 50, Urine Creatinine 28.10 09/05/21 03:45: WBC 3.5 L, RBC 2.48 L, Hgb 8.1 L, Hct 24.1 L, MCV 97.2 H, MCH 32.7 H, MCHC 33.6, RDW Std Deviation 57.9 H, RDW Coeff of Maikol 16.1 H, Plt Count 91 L, MPV 10.8, Immature Gran % (Auto) 0.300, Neut % (Auto) 64.7, Lymph % (Auto) 23.1, [place] % (Auto) 8.5, Eos % (Auto) 3.1, Baso % (Auto) 0.3, Absolute Neuts (auto) 2.3, Absolute Lymphs (auto) 0.81 L, Nucleated RBC % 0 09/05/21 03:45: Sodium 119 L*, Potassium 4.5, Chloride 87 L, Carbon Dioxide 20.0 L, Anion Gap 12, BUN 25 H, Creatinine 1.08, Estim Creat Clear Calc 49.23, Est GFR (MDRD) Af Amer 84, Est GFR (MDRD) Non-Af 70, BUN/Creatinine Ratio 23.1 H, Glucose 94, Calcium 8.1 L, Total Bilirubin 1.30 H, AST 19, ALT 17, Alkaline Phosphatase 74, Troponin I High Sens 20, Total Protein 6.1 L, Albumin 3.0 L, Globulin 3.1, Albumin/Globulin Ratio 1.0, Triglycerides 69, Cholesterol 93, LDL Cholesterol 26, VLDL Cholesterol 14, HDL Cholesterol 53, TSH 2.29 Rhythm Strip Rhythm Strip: A-fib Rate: 95 Ectopy: None Radiology Impression Chest X-Ray 09/04/21 17:00 IMPRESSION: Mild cardiomegaly with central pulmonary venous congestion and small left pleural effusion. Electronically Signed: Pasquale Matson MD at 18:08 EDT , Brain CT 09/04/21 19:12 IMPRESSION: No acute intracranial abnormality. Chronic involutional and ischemic changes of the brain. Electronically Signed: Pasquale Matson MD at 20:07 EDT , Echocardiogram 09/04/21 21:40 Interpretation Summary The estimated ejection fraction is 15 %. There is evidence of diastolic dysfunction. There is severe global hypokinesis of the left ventricle. The left atrium is mildly enlarged. The right atrium is mildly enlarged. Mild (1+) mitral valve insufficiency. Mild aortic stenosis. Mild (1+) aortic valve insufficiency. Ordering Physician: Kortney Alexandra Referring Physician: Jaden Farmer Chi Performed By: Tari Knutson, RDCS, RVT Charges/Coding Visit Charges Inpatient E&M: 40007 Init Hosp L3
[2021-09-05] MEDS: Acetaminophen 325 MG Tablet 650 MG PO (16:56)
[2021-09-05] MEDS: Tamsulosin HCl 0.4 MG Capsule PO (16:59)
[2021-09-05] MEDS: Pravastatin 80 MG Tablet PO (21:21)
--- NOTE | 2021-09-05 21:40 | PCM.HOSP.N ---
Hospitalist Note Nursing staff called as initial concern for L sided facial droop; however, noted after awoke and also did not have his teeth in place. Once teeth placed no evidence of droop with appropriate smile and mentation. Encouraged continued monitoring of patient.
[2021-09-05 21:45] LABS: Bedside Glucose 113 mg/dL (74-106)
--- NOTE | 2021-09-05 23:05 | NURSING ---
Woke pt up for assessment, noticed left facial droop that said was not normal. Pt was A&Ox3, VSS, BP 132/109. Did an NIH, scored a 1 for facial droop. Blood sugar was 113. Patient returned to baseline, MD aware.
[2021-09-06] VITALS (10 sets, daily range): BP systolic 94–102; BP diastolic 53–65; PULSE 57–73; RESP 16–18; TEMP 36.2–36.6; O2SAT 95–97
[2021-09-06 04:30] LABS: Absolute Lymphocyte Count 1.15 X10^3/uL (0.83-4.51); Absolute Neutrophil Count 2.5 X10^3/uL (2.0-7.7); Basophil# 0.02 X10^3/uL; Basophil% 0.5 % (0-1); Eosinophil# 0.24 X10^3/uL; Eosinophils% 5.7 % (0-5); Hematocrit 24.6 % (40-54); Hemoglobin 8.6 g/dL (13.0-16.5); Lymphocyte # 1.15 X10^3/ul (0.83-4.51); Lymphocyte % 27.4 % (19-41); Mean Corpuscular Hgb 33.6 pg (27.0-32.0); Mean Corpuscular Volume 96.1 fL (80-94); Mean Platelet Vol. 11.1 fl (6.2-12.0); Monocyte# 0.32 X10^3/uL; Monocyte% 7.6 % (0-10); NRBC Flagged by Analyzer 0 % (0-5); Neutrophil # 2.46 X10^3/uL (2.7-7.7); Neutrophil % 58.8 % (47-70); Platelet Count 102 K/mm3 (150-450); RBC Distribution Width CV 16.6 % (11.6-14.6); RBC Distribution Width SD 58.6 fl (35.1-43.9); Red Blood Count 2.56 M/mm3 (4.6-6.2); White Blood Count 4.2 K/mm3 (4.4-11.0)
[2021-09-06 05:29] LABS: Anion Gap 7 (5-15); BUN 25 mg/dL (7-18); BUN/Creat Ratio 19.8 RATIO (10-20); Calcium,Total 8.3 mg/dL (8.5-10.1); Chloride 91 mmol/L (98-107); Creatinine, Serum 1.26 mg/dL (0.70-1.30); EST Glomerular Filtration Rate 58 mL/min (>60); Est Glom Filt Rate - Afr Amer 71 mL/min (>60); Glucose 83 mg/dL (74-106); Sodium Level 118 mmol/L (136-145)
[2021-09-06] MEDS: HYDROCODONE/APAP 7.5-325/15ML 15 ML UDC PO ×4 (05:49→23:35)
[2021-09-06] MEDS: Oxybutynin 5 MG Tablet PO ×3 (05:49→22:58)
[2021-09-06] MEDS: Potassium Chloride Oral Tablet 20 MEQ PO (09:04)
[2021-09-06] MEDS: Finasteride 5 MG Tablet PO (09:04)
[2021-09-06] MEDS: Pantoprazole Sodium 40 MG Tablet PO (09:04)
[2021-09-06] MEDS: APIXABAN 5 MG TABLET PO ×2 (09:04→22:57)
[2021-09-06] MEDS: Carvedilol 6.25 MG Tablet PO (09:04)
[2021-09-06] MEDS: Febuxostat 40 MG TABLET PO (09:04)
[2021-09-06] MEDS: Furosemide 40 MG/4 ML Vial IV ×2 (09:05→16:17)
[2021-09-06] MEDS: SACUBITRIL/VALSARTAN 97-103 MG TABLET 1 EACH PO ×2 (09:05→22:57)
[2021-09-06] MEDS: Famotidine 20 MG Tablet 40 MG PO (09:05)
[2021-09-06] MEDS: 0.9% Saline Lock 10 ML Syringe IV ×2 (09:09→16:17)
--- NOTE | 2021-09-06 10:42 | PN.HOSP_ITS ---
Documented by User: Denita Shankar NP, G[employer] REMOVER-C 09/06/21 10:54 Subjective Subjective Patient seen and examined. Reports improvement in breathing. Denies neurologic symptoms. Denies other symptoms or complaints. Objective Data Objective Data Vital Signs: Vital Signs Temp Pulse Resp BP Pulse Ox O2 Del Method 97.8 F 71 18 100/53 L 95 Room Air 09/06/21 08:45 09/06/21 08:45 09/06/21 08:45 09/06/21 08:45 09/06/21 08:45 09/06/21 08:45 Oxygen Delivery Method Room Air Weight: 160 lb 14.999 oz Body Mass Index (BMI) 26.4 Intake & Output: Intake and Output for Last 24 Hours 09/04/21 09/05/21 09/06/21 23:59 23:59 23:59 Intake Total 240 / 240 Output Total 1100 / 1100 950 / 950 Balance -1100 / -1100 -710 / -710 Lab / Micro Data Result Diagrams: 09/06/21 03:50 09/06/21 03:50 Labs: Laboratory Results - last 24 hr 09/05/21 21:07: POC Glucose 113 H 09/06/21 03:50: WBC 4.2 L, RBC 2.56 L, Hgb 8.6 L, Hct 24.6 L, MCV 96.1 H, MCH 33.6 H, MCHC 35.0, RDW Std Deviation 58.6 H, RDW Coeff of Maikol 16.6 H, Plt Count 102 L, MPV 11.1, Immature Gran % (Auto) 0.000, Neut % (Auto) 58.8, Lymph % (Auto) 27.4, [place] % (Auto) 7.6, Eos % (Auto) 5.7 H, Baso % (Auto) 0.5, Absolute Neuts (auto) 2.5, Absolute Lymphs (auto) 1.15, Nucleated RBC % 0 09/06/21 03:50: Sodium 118 L*, Potassium 5.0, Chloride 91 L, Carbon Dioxide 20.0 L, Anion Gap 7, BUN 25 H, Creatinine 1.26, Estim Creat Clear Calc 42.20, Est GFR (MDRD) Af Amer 71, Est GFR (MDRD) Non-Af 58 L, BUN/Creatinine Ratio 19.8, Glucose 83, Calcium 8.3 L Radiography Diagnostic Testing: Radiology Impression Echocardiogram 09/04/21 21:40 Interpretation Summary The estimated ejection fraction is 15 %. There is evidence of diastolic dysfunction. There is severe global hypokinesis of the left ventricle. The left atrium is mildly enlarged. The right atrium is mildly enlarged. Mild (1+) mitral valve insufficiency. Mild aortic stenosis. Mild (1+) aortic valve insufficiency. Ordering Physician: Kortney Alexandra Referring Physician: Jaden Farmer Chi Performed By: Tari Knutson, RDCS, RVT Renal Ultrasound 09/05/21 06:23 IMPRESSION: Bilateral renal cysts. Small amount of ascites. Electronically Signed: Alfonso Sarah MD at 15:25 EDT , Rhythm Strip Rhythm Strip: A-fib Rate: 95 Ectopy: None Physical Exam Const alert and oriented x3 HEENT normocephalic and moist oral mucous membranes Eyes PERRL, EOMs intact bilaterally and conjunctivae normal Neck no lymphadenopathy Resp clear to auscultation bilaterally Auscultation: diminished lung sounds Cardio regular rate, regular rhythm and no murmurs Peripheral Pulses: pulses 2+ throughout GI normal to inspection, nondistended, normoactive bowel sounds, non-tender and non-distended Extremity normal to inspection General Extremity: edema bilateral lower extremity Details: mild Skin no rashes or lesions noted Lesions: no lesions Rashes: no rashes Trauma: no lacerations or abrasions Neuro CN's II-XII intact bilaterally, no focal motor deficits, no sensory deficits noted and deep tendon reflexes 2+ bilaterally Psych mental status grossly normal and affect normal Assessment & Plan Assessment/Plan (1) Acute hyponatremia: (2) Acute exacerbation of CHF (congestive heart failure): PLAN: Plan 1.? Acute on chronic heart failure with reduced ejection fraction/ischemic car diomyopathy-chest x-ray with pulmonary congestion, small left pleural effusion.? BNP >5000.? IV Lasix.? Strict I&O.? Echocardiogram June 2018 demonstrated an EF of 15 to 20%.? According to outpatient records, patient was previously scheduled to undergo defibrillator placement in 2019 and decided against procedure.? Continue with aggressive medical management. 2. Acute on chronic Hyponatremia-nephrology consulted.? Likely related to hypervolemia as a result of #1.? Renal ultrasound with small amount of ascites. Trend BMP. 3. Reducible right inguinal hernia-educated by surgery to self reduce. 4. Hypertension-stable, continue Entresto, carvedilol. 5. Hyperlipidemia-continue statin. 6. CAD with history of CABG-continue Eliquis, carvedilol, Entresto, statin. 7. Chronic COPD-no exacerbation.? As needed albuterol aerosol. 8. History of CVA-on Eliquis, statin. 9. Paroxysmal atrial fibrillation-continue Eliquis, carvedilol. 10. History of PE-on anticoagulation with Eliquis. 11. Chronic macrocytic anemia/chronic thrombocytopenia-at baseline. 12. GERD- continue PPI. 13. BPH-continue Flomax. DVT prophylaxis- Eliquis This patient was seen by JIA Mckeon under the supervision of Dr. Steen. Time spent examining patient, reviewing data and subsequent management of care: 12 minutes Documented by User: Dr. Amanda Steen MD 09/06/21 16:36 Objective Data Lab / Micro Data Result Diagrams: 09/06/21 03:50 09/06/21 03:50 Assessment & Plan Assessment/Plan (1) Acute hyponatremia: (2) Acute exacerbation of CHF (congestive heart failure): Charges/Coding Addendum Addendum: Patient seen by Denita RO under my supervision Patient seen and examined.? His shortness of breath had improved.? His was by his bedside.? Patient is very hard of hearing.? He complained of right groin pain and swelling which he said has been going on for over a year.? Patient and his thought the groin swelling was due to his prostate.? Previously he could push the swelling back into his abdomen but now he is unable to.? Review of systems otherwise negative.? He has been diuresed with Lasix. O/E: Const alert, oriented x3 and no apparent distress General Appearance: cooperative HEENT normocephalic, head/scalp atraumatic, hearing grossly normal bilaterally and moist oral mucous membranes Eyes PERRL, EOMs intact bilaterally and conjunctivae normal Neck no lymphadenopathy, supple and no JVD Resp normal respiratory effort and clear to auscultation bilaterally Cardio regular rate, regular rhythm, S1 normal heart sound, S2 normal heart sound and no murmurs GI normal to inspection, nondistended, normoactive bowel sounds and soft to palpation has right groin inguinal hernia that is not reducible, and tender to touch Extremity normal to inspection, full ROM and no clubbing, cyanosis, 1+ bipedal pitting edema Skin no rashes or lesions noted Neuro oriented x3, CN's II-XII intact bilaterally and moves all extremities Sensorium / Orientation: awake and alert Psych affect normal Assessment and plan #Acute on chronic HFrEF * on IV lasix * monitor intake and output. Fluid restriction to 1500cc daily * echo from June 2018 showed EF of 15-20% * 2D echo shows EF of 15%, with diastolic dysfunction and severe global hypokinesis of LV * per records, he was supposed to be fitted with a defibrillator in 2019, but opted against the procedure * on entresto and carvedilol #Acute on chronic hyponatremia * sodium is 118 today. Nephrology on board. * nephrology on board. Appreciate rec's * #Right groin hernia * general surgery was consulted and reduced inguinal hernia * pain meds prn #Hyperlipidemia: on statin #Hypertension: on entresto and carvedilol #history of CVA: on statin, carvedilol adn eliquis #History of afib: on carvedilol and eliquis. Rest of chronic problems include a history of PE, for which he is anticoagulated on eliquis. rest as per Denita Shankar G[employer] REMOVER-C's note, which I have reviewed and endorsed. Total time I spent on the care of the patient today is 17 mins, with Denita Shankar spending 12 mins, making a total of 29 mins. Visit Charges Inpatient E&M: 50108 Subs Hosp L2
--- NOTE | 2021-09-06 12:11 | PN.RENAL_ITS ---
Subjective Subjective edema improved in legs, still weak, debilitated. Right inguinal hernia reduced by surgery Objective Data Objective Data Vital Signs: Vital Signs Temp Pulse Resp BP Pulse Ox O2 Del Method 97.8 F 71 18 100/53 L 95 Room Air 09/06/21 08:45 09/06/21 08:45 09/06/21 08:45 09/06/21 08:45 09/06/21 08:45 09/06/21 08:45 Oxygen Delivery Method Room Air Weight: 73 kg Body Mass Index (BMI) 26.4 Intake & Output: Intake and Output for Last 24 Hours 09/04/21 09/05/21 09/06/21 23:59 23:59 23:59 Intake Total 240 / 240 Output Total 1100 / 1100 950 / 950 Balance -1100 / -1100 -710 / -710 Lab / Micro Data Result Diagrams: 09/06/21 03:50 09/06/21 03:50 Labs: Laboratory Results - last 24 hr 09/05/21 21:07: POC Glucose 113 H 09/06/21 03:50: WBC 4.2 L, RBC 2.56 L, Hgb 8.6 L, Hct 24.6 L, MCV 96.1 H, MCH 33.6 H, MCHC 35.0, RDW Std Deviation 58.6 H, RDW Coeff of Maikol 16.6 H, Plt Count 102 L, MPV 11.1, Immature Gran % (Auto) 0.000, Neut % (Auto) 58.8, Lymph % (Auto) 27.4, [place] % (Auto) 7.6, Eos % (Auto) 5.7 H, Baso % (Auto) 0.5, Absolute Neuts (auto) 2.5, Absolute Lymphs (auto) 1.15, Nucleated RBC % 0 09/06/21 03:50: Sodium 118 L*, Potassium 5.0, Chloride 91 L, Carbon Dioxide 20.0 L, Anion Gap 7, BUN 25 H, Creatinine 1.26, Estim Creat Clear Calc 42.20, Est GFR (MDRD) Af Amer 71, Est GFR (MDRD) Non-Af 58 L, BUN/Creatinine Ratio 19.8, Glucose 83, Calcium 8.3 L Radiography Diagnostic Testing: Radiology Impression Echocardiogram 09/04/21 21:40 Interpretation Summary The estimated ejection fraction is 15 %. There is evidence of diastolic dysfunction. There is severe global hypokinesis of the left ventricle. The left atrium is mildly enlarged. The right atrium is mildly enlarged. Mild (1+) mitral valve insufficiency. Mild aortic stenosis. Mild (1+) aortic valve insufficiency. Ordering Physician: Kortney Alexandra Referring Physician: Jaden Farmer Chi Performed By: Tari Knutson, DEAN, RVT Renal Ultrasound 09/05/21 06:23 IMPRESSION: Bilateral renal cysts. Small amount of ascites. Electronically Signed: Alfonso Sarah MD at 15:25 EDT , Rhythm Strip Rhythm Strip: A-fib Rate: 95 Ectopy: None Physical Exam Const alert and no apparent distress Resp clear to auscultation bilaterally Cardio Cardio Narrative: afib GI non-tender GI Narrative: less tender rt groin Auscultation: normoactive bowel sounds Palpation: soft Extremity General Extremity: edema bilateral (1+ pitting) Neuro Sensorium / Orientation: awake and alert Psych cooperative Memory / Cognition: cognition impaired Assessment & Plan Assessment/Plan (1) Acute hyponatremia: PLAN: due to volume expansion. Continue diuretics and fluid restriction. TSH normal (2) Acute exacerbation of CHF (congestive heart failure): PLAN: Continue diuretics, EF 15% (3) Ischemic cardiomyopathy: (4) Paroxysmal atrial fibrillation: PLAN: rate controlled (5) Chronic systolic (congestive) heart failure: PLAN: EF 15% (6) Essential (primary) hypertension: (7) HLD (hyperlipidemia): QUALIFIERS: Hyperlipidemia type: unspecified Qualified Code(s): E78.5 - Hyperlipidemia, unspecified (8) H/O coronary artery bypass surgery: (9) Stage 3b chronic kidney disease (CKD): PLAN: creatinine 1.26, hold entresto if azotemia continues to worsen
[2021-09-06] MEDS: Tamsulosin HCl 0.4 MG Capsule PO (16:16)
[2021-09-06] MEDS: Cephalexin 500 MG Capsule PO ×2 (16:17→23:35)
[2021-09-06] MEDS: Pravastatin 80 MG Tablet PO (22:58)
[2021-09-07] VITALS (8 sets, daily range): BP systolic 85–105; BP diastolic 44–68; PULSE 58–80; RESP 18; TEMP 36.5–36.7; O2SAT 96–99
[2021-09-07] MEDS: Oxybutynin 5 MG Tablet PO (06:55)
[2021-09-07] MEDS: HYDROCODONE/APAP 7.5-325/15ML 15 ML UDC PO ×2 (06:55→12:16)
[2021-09-07] MEDS: Cephalexin 500 MG Capsule PO ×2 (06:55→11:06)
[2021-09-07 07:45] LABS: Absolute Lymphocyte Count 1.22 X10^3/uL (0.83-4.51); Absolute Neutrophil Count 1.7 X10^3/uL (2.0-7.7); Basophil# 0.02 X10^3/uL; Basophil% 0.6 % (0-1); Eosinophil# 0.24 X10^3/uL; Eosinophils% 6.7 % (0-5); Hemoglobin 8.1 g/dL (13.0-16.5); Lymphocyte # 1.22 X10^3/ul (0.83-4.51); Lymphocyte % 34.2 % (19-41); Mean Corp Hgb Conc 33.8 g/dL (32-36); Mean Corpuscular Hgb 33.8 pg (27.0-32.0); Mean Platelet Vol. 10.4 fl (6.2-12.0); Monocyte# 0.36 X10^3/uL; Monocyte% 10.1 % (0-10); NRBC Flagged by Analyzer 0 % (0-5); Neutrophil # 1.73 X10^3/uL (2.7-7.7); Neutrophil % 48.4 % (47-70); Platelet Count 110 K/mm3 (150-450); RBC Distribution Width CV 16.6 % (11.6-14.6); White Blood Count 3.6 K/mm3 (4.4-11.0)
[2021-09-07 07:59] LABS: Anion Gap 5 (5-15); BUN 32 mg/dL (7-18); BUN/Creat Ratio 25.6 RATIO (10-20); Calcium,Total 8.5 mg/dL (8.5-10.1); Chloride 95 mmol/L (98-107); Creatinine, Serum 1.25 mg/dL (0.70-1.30); EST Glomerular Filtration Rate 59 mL/min (>60); Est Glom Filt Rate - Afr Amer 71 mL/min (>60); Estimated Creatinine Clearance 42.53 ml/min; Glucose 87 mg/dL (74-106); Potassium 4.5 mmol/L (3.5-5.1); Sodium Level 124 mmol/L (136-145)
[2021-09-07] MEDS: Carvedilol 6.25 MG Tablet PO (08:08)
[2021-09-07] MEDS: Febuxostat 40 MG TABLET PO (08:08)
[2021-09-07] MEDS: Potassium Chloride Oral Tablet 20 MEQ PO (08:08)
[2021-09-07] MEDS: Famotidine 20 MG Tablet 40 MG PO (08:08)
[2021-09-07] MEDS: Pantoprazole Sodium 40 MG Tablet PO (08:08)
[2021-09-07] MEDS: Finasteride 5 MG Tablet PO (08:08)
[2021-09-07] MEDS: APIXABAN 5 MG TABLET PO (08:09)
--- NOTE | 2021-09-07 11:53 | DCINST_ITS ---
Discharge Instructions Diet Discharge Diet: Low fat / Low cholesterol and 8 Cup Fluid Restriction Activity Discharge Activity: Return to Normal Activity Dressing / Incision Call your doctor if you observe: Shortness of breath, Dizziness and Chest pain Follow Up Care Test Results: Test results from this visit will be discussed in further detail at your follow- up appointment, if applicable. Discharge Plan Admission Admit Date/Time: 09/04/21 20:28 Primary Reason for Your Visit: Heart failure Attending Provider: Amanda Steen Primary Care Provider: Jaden Farmer Chi Consulting Providers: Daina Royal ; Kortney Alexandra ; Porsche Mackenzie Discharge Orders/Prescriptions Prescriptions: New cephalexin 500 mg Capsule 500 mg PO Q6 5 Days Qty: 20 0RF furosemide [Lasix] 80 mg tablet 80 mg PO BID Qty: 60 0RF Continued potassium chloride 20 mEq tablet extended release 20 meq PO DAILY alfuzosin 10 mg tablet extended release 24 hr 10 mg PO DAILY hydrocodone-acetaminophen 7.5-325 mg tablet 1 tab PO Q6H famotidine [Pepcid] 40 mg tablet 40 mg PO DAILY oxybutynin chloride 5 MG tablet 5 mg PO TID finasteride 5 MG tablet 5 mg PO DAILY omeprazole 40 MG capsule,delayed release(DR/EC) 40 mg PO DAILY apixaban 5 MG tablet 5 mg PO BID Label Comments: BLOOD THINNER will stop on 02/15/17 for 2 days for procedure vortioxetine 20 mg tablet 20 mg PO DAILY febuxostat 40 mg Tablet 40 mg PO DAILY Entresto 97-103 mg tablet 1 tab PO BID Qty: 60 11RF carvedilol 6.25 mg tablet 6.25 mg PO BID Qty: 60 12RF Rx Instructions: must administer with a meal/food pravastatin 80 mg tablet 80 mg PO QHS Qty: 90 3RF Discontinued furosemide 40 mg tablet 40 mg PO BID Referrals / Follow Up: Daina Royal DO [Med Staff - Consulting] - Within 2 Weeks Jaden Farmer Chi, MD [Primary Care Provider] - In 1 Week Watson Davison NP, [employer]-C [Med Staff - Adv Practice Prof] - Within 2 Weeks Disposition Disposition (needs filled in before D/C Order can be placed): Home, Self Care
--- NOTE | 2021-09-07 12:04 | DS.PCM_ITS ---
Documented by User: Denita Shankar NP, TECHNOLOGY TEACHER-C 09/07/21 12:09 Providers Date of Admission: 09/04/21 Date of Discharge: 09/07/21 Primary Care Physician: Dr. Jaden Farmer MD Consultations 09/05/21 06:22 Consult: Nephrology Routine Consulting Provider: Daina Royal Reason for Consult: Hyponatremia EMERGENT Consult: No Notified: Yes Date Notified: 09/05/21 Time Notified: 06:56 Method of Notification: Text 09/05/21 12:48 Consult: General Surgery Routine Consulting Provider: Porsche Mackenzie Reason for Consult: Painful inguinal hernia EMERGENT Consult: No Notified: Yes Date Notified: 09/05/21 Time Notified: 12:48 Method of Notification: Text Reason For Visit: ACUTE CHF EXAC, ACUTE HYPONATREMIA Diagnosis Discharge Diagnosis (1) Acute hyponatremia: Status: Acute Code(s): E87.1 - Hypo-osmolality and hyponatremia (2) Acute exacerbation of CHF (congestive heart failure): Status: Chronic Code(s): I50.9 - Heart failure, unspecified Medications at Discharge Home Medications apixaban 5 mg tablet 5 mg PO BID BLOOD THINNER 06/10/18 finasteride 5 mg tablet 5 mg PO DAILY PROSTATE 06/10/18 omeprazole 40 mg capsule,delayed release 40 mg PO DAILY GERD 06/10/18 oxybutynin chloride 5 mg tablet 5 mg PO TID BLADDER 06/10/18 alfuzosin 10 mg tablet,extended release 24 hr 10 mg PO DAILY prostate 12/07/18 potassium chloride 20 mEq tablet,extended release 20 meq PO DAILY supplement 12/07/18 sacubitril 97 mg-valsartan 103 mg tablet (Entresto) 1 tab PO BID #60 tabs 12/09/18 hydrocodone 7.5 mg-acetaminophen 325 mg tablet 1 tab PO Q6H pain 01/03/19 vortioxetine 20 mg tablet 20 mg PO DAILY DEPRESSION 07/07/19 famotidine 40 mg tablet (Pepcid) 40 mg PO DAILY reflux 02/04/21 carvedilol 6.25 mg tablet 6.25 mg PO BID #60 tabs 02/14/21 pravastatin 80 mg tablet 80 mg PO QHS CHOLESTEROL #90 tabs 02/18/21 febuxostat 40 mg tablet 40 mg PO DAILY gout 09/04/21 cephalexin 500 mg capsule 500 mg PO Q6 5 days #20 caps 09/07/21 furosemide 40 mg tablet (Lasix) 40 mg PO BID #60 tabs 09/07/21 Hospital Course Operations None Procedures 2-D Echocardiogram Summary of Care Provided Hospital Course: Patient is an 80-year-old male admitted 09/04/2021 due to shortness of breath. 1.? Acute on chronic heart failure with reduced ejection fraction/ischemic cardiomyopathy-chest x-ray with pulmonary congestion, small left pleural effusion.? BNP >5000.? IV Lasix during admission.? Echocardiogram June 2018 demonstrated an EF of 15 to 20%.? According to outpatient records, patient was previously scheduled to undergo defibrillator placement in 2018 and decided against procedure.? Lasix increased to 80 mg twice daily at discharge. Follow- up with cardiology within 2 weeks. 2. Acute on chronic Hyponatremia-nephrology consulted during admission.? Related to hypervolemia as a result of #1.? Renal ultrasound with small amount of ascites.? Sodium improved. Home Lasix increased as noted above. Follow-up with nephrology in 1 week. 3. Reducible right inguinal hernia-educated by surgery to self reduce. 4. Hypertension-stable, continue Entresto, carvedilol. 5. Hyperlipidemia-continue statin. 6. CAD with history of CABG-continue Eliquis, carvedilol, Entresto, statin. 7. Chronic COPD-no exacerbation.? 8. History of CVA-on Eliquis, statin. 9. Paroxysmal atrial fibrillation-continue Eliquis, carvedilol. 10. History of PE-on anticoagulation with Eliquis. 11. Chronic macrocytic anemia/chronic thrombocytopenia-at baseline. 12. GERD- continue PPI. 13. BPH-continue Flomax. Physical Exam Const alert and oriented x3 HEENT normocephalic and moist oral mucous membranes Eyes PERRL, EOMs intact bilaterally and conjunctivae normal Neck no lymphadenopathy Resp clear to auscultation bilaterally Auscultation: diminished lung sounds Cardio regular rate, regular rhythm and no murmurs Peripheral Pulses: pulses 2+ throughout GI normal to inspection, nondistended, normoactive bowel sounds, non-tender and non-distended Extremity normal to inspection General Extremity: edema bilateral lower extremity Details: mild Skin no rashes or lesions noted Lesions: no lesions Rashes: no rashes Trauma: no lacerations or abrasions Neuro CN's II-XII intact bilaterally, no focal motor deficits, no sensory deficits noted and deep tendon reflexes 2+ bilaterally Psych mental status grossly normal and affect normal Patient seen and examined prior to discharge. Physical assessment as noted above. Patient is stable for discharge with follow up recommendations as noted above. This patient was seen by JIA Mckeon under the supervision of Dr. Steen. Time spent examining patient, reviewing data and subsequent management of care: 25 minutes Weight / BMI Weight Weight: 162 lb Body Mass Index (BMI) 26.4 ABG / Lab / Microbiology Data Result Diagrams: 09/07/21 06:54 09/07/21 06:54 Laboratory: Laboratory Results - last 24 hr 09/07/21 06:54: WBC 3.6 L, RBC 2.40 L, Hgb 8.1 L, Hct 24.0 L, MCV 100.0 H, MCH 33.8 H, MCHC 33.8, RDW Std Deviation 61.0 H, RDW Coeff of Maikol 16.6 H, Plt Count 110 L, MPV 10.4, Immature Gran % (Auto) 0.000, Neut % (Auto) 48.4, Lymph % (Auto) 34.2, [place] % (Auto) 10.1 H, Eos % (Auto) 6.7 H, Baso % (Auto) 0.6, Absolute Neuts (auto) 1.7 L, Absolute Lymphs (auto) 1.22, Nucleated RBC % 0 09/07/21 06:54: Sodium 124 L, Potassium 4.5, Chloride 95 L, Carbon Dioxide 24.0, Anion Gap 5, BUN 32 H, Creatinine 1.25, Estim Creat Clear Calc 42.53, Est GFR (MDRD) Af Amer 71, Est GFR (MDRD) Non-Af 59 L, BUN/Creatinine Ratio 25.6 H, Glucose 87, Calcium 8.5 D/C Instructions Discharge Diet: Low fat / Low cholesterol and 8 Cup Fluid Restriction Call your doctor if you observe: Shortness of breath, Dizziness and Chest pain Meaningful Use Info Meaningful Use Diagnoses (Choose all that apply): CHF CHF JEFFREY/ARB ordered at discharge?: Yes Documented LVEF (%): 15 Discharge Plan Admission Admit Date/Time: 09/04/21 20:28 Primary Reason for Your Visit: Heart failure Attending Provider: Amanda Steen Primary Care Provider: Jaden Farmer Chi Consulting Providers: Daina Royal ; Kortney Alexandra ; Porsche Mackenzie Discharge Orders/Prescriptions Prescriptions: New cephalexin 500 mg Capsule 500 mg PO Q6 5 Days Qty: 20 0RF furosemide [Lasix] 80 mg tablet 80 mg PO BID Qty: 60 0RF Continued potassium chloride 20 mEq tablet extended release 20 meq PO DAILY alfuzosin 10 mg tablet extended release 24 hr 10 mg PO DAILY hydrocodone-acetaminophen 7.5-325 mg tablet 1 tab PO Q6H famotidine [Pepcid] 40 mg tablet 40 mg PO DAILY oxybutynin chloride 5 MG tablet 5 mg PO TID finasteride 5 MG tablet 5 mg PO DAILY omeprazole 40 MG capsule,delayed release(DR/EC) 40 mg PO DAILY apixaban 5 MG tablet 5 mg PO BID Label Comments: BLOOD THINNER will stop on 02/15/17 for 2 days for procedure vortioxetine 20 mg tablet 20 mg PO DAILY febuxostat 40 mg Tablet 40 mg PO DAILY Entresto 97-103 mg tablet 1 tab PO BID Qty: 60 11RF carvedilol 6.25 mg tablet 6.25 mg PO BID Qty: 60 12RF Rx Instructions: must administer with a meal/food pravastatin 80 mg tablet 80 mg PO QHS Qty: 90 3RF Discontinued furosemide 40 mg tablet 40 mg PO BID Referrals / Follow Up: Daina Royal DO [Med Staff - Consulting] - Within 2 Weeks Jaden Farmer Chi, MD [Primary Care Provider] - In 1 Week Watson Davison NP, TECHNOLOGY TEACHER-C [Med Staff - Adv Practice Prof] - Within 2 Weeks Disposition Disposition (needs filled in before D/C Order can be placed): Home, Self Care Documented by User: Dr. Amanda Steen MD 09/07/21 15:27 Providers Date of Admission: 09/04/21 Reason For Visit: ACUTE CHF EXAC, ACUTE HYPONATREMIA Diagnosis Discharge Diagnosis (1) Acute hyponatremia: Status: Acute Code(s): E87.1 - Hypo-osmolality and hyponatremia (2) Acute exacerbation of CHF (congestive heart failure): Status: Chronic Code(s): I50.9 - Heart failure, unspecified Medications at Discharge Home Medications apixaban 5 mg tablet 5 mg PO BID BLOOD THINNER 06/10/18 finasteride 5 mg tablet 5 mg PO DAILY PROSTATE 06/10/18 omeprazole 40 mg capsule,delayed release 40 mg PO DAILY GERD 06/10/18 oxybutynin chloride 5 mg tablet 5 mg PO TID BLADDER 06/10/18 alfuzosin 10 mg tablet,extended release 24 hr 10 mg PO DAILY prostate 12/07/18 potassium chloride 20 mEq tablet,extended release 20 meq PO DAILY supplement 12/07/18 sacubitril 97 mg-valsartan 103 mg tablet (Entresto) 1 tab PO BID #60 tabs 12/09/18 hydrocodone 7.5 mg-acetaminophen 325 mg tablet 1 tab PO Q6H pain 01/03/19 vortioxetine 20 mg tablet 20 mg PO DAILY DEPRESSION 07/07/19 famotidine 40 mg tablet (Pepcid) 40 mg PO DAILY reflux 02/04/21 carvedilol 6.25 mg tablet 6.25 mg PO BID #60 tabs 02/14/21 pravastatin 80 mg tablet 80 mg PO QHS CHOLESTEROL #90 tabs 02/18/21 febuxostat 40 mg tablet 40 mg PO DAILY gout 09/04/21 cephalexin 500 mg capsule 500 mg PO Q6 5 days #20 caps 09/07/21 furosemide 40 mg tablet (Lasix) 40 mg PO BID #60 tabs 09/07/21 ABG / Lab / Microbiology Data Result Diagrams: 09/07/21 06:54 09/07/21 06:54 Discharge Plan Admission Admit Date/Time: 09/04/21 20:28 Primary Reason for Your Visit: Heart failure Attending Provider: Amanda Steen Primary Care Provider: Jaden Farmer Chi Consulting Providers: Daina Royal ; Kortney Alexandra ; Porsche Mackenzie Discharge Orders/Prescriptions Prescriptions: New cephalexin 500 mg Capsule 500 mg PO Q6 5 Days Qty: 20 0RF furosemide [Lasix] 80 mg tablet 80 mg PO BID Qty: 60 0RF Continued potassium chloride 20 mEq tablet extended release 20 meq PO DAILY alfuzosin 10 mg tablet extended release 24 hr 10 mg PO DAILY hydrocodone-acetaminophen 7.5-325 mg tablet 1 tab PO Q6H famotidine [Pepcid] 40 mg tablet 40 mg PO DAILY oxybutynin chloride 5 MG tablet 5 mg PO TID finasteride 5 MG tablet 5 mg PO DAILY omeprazole 40 MG capsule,delayed release(DR/EC) 40 mg PO DAILY apixaban 5 MG tablet 5 mg PO BID Label Comments: BLOOD THINNER will stop on 02/15/17 for 2 days for procedure vortioxetine 20 mg tablet 20 mg PO DAILY febuxostat 40 mg Tablet 40 mg PO DAILY Entresto 97-103 mg tablet 1 tab PO BID Qty: 60 11RF carvedilol 6.25 mg tablet 6.25 mg PO BID Qty: 60 12RF Rx Instructions: must administer with a meal/food pravastatin 80 mg tablet 80 mg PO QHS Qty: 90 3RF Discontinued furosemide 40 mg tablet 40 mg PO BID Referrals / Follow Up: Daina Royal DO [Med Staff - Consulting] - Within 2 Weeks Jaden Farmer Chi, MD [Primary Care Provider] - In 1 Week Watson Davison NP, NP-C [Med Staff - Adv Practice Prof] - Within 2 Weeks Disposition Disposition (needs filled in before D/C Order can be placed): Home, Self Care Charges/Coding Addendum Addendum: Patient seen by Denita RO under my supervision Patient is an 80-year-old male with a past medical history as outlined was admitted through the ED with a complaint of increasing fatigue and malaise as well as shortness of breath with exertion and a 12 pound weight gain over the last 2 weeks prior to admission. He also had associated orthopnea and PND. He went see his PCP and was sent to the ED. Chest x-ray showed mild cardiomegaly with central pulmonary venous congestion and small left pleural effusion. CT of the brain showed no acute intracranial pathology and EKG showed A. fib with no acute ST changes. Sodium was 119. He was admitted and managed for acute on chronic exacerbation of heart failure with reduced ejection fraction as well as hyponatremia which was thought to be due to fluid overload. He was diuresed with IV Lasix. Nephrology was also consulted on account of the hyponatremia and this was suspected to improve with diuresis. Of note patient also complained of right groin swelling and was found to have a right inguinal hernia. General surgery was consulted and this was reduced manually. Shortness of breath improved and he felt better. Sodium also improved to 124. 2D echo done showed EF of 15% with diastolic dysfunction and severe global hypokinesis of the left ventricle. It was in the EMR that patient had been due to be fitted with a defibrillator in 2019 but had refused. Patient remained stable and was discharged on 09/07/2021 with p.o. Lasix 40 mg twice daily as well as Entresto and carvedilol. Of note patient's blood pressure was running low in the 90s systolic and so his Lasix was not increased due to risk of hypotension. He was discharged on his home dose of 40 mg twice daily of Lasix and is follow-up with his primary care doctor and pattern perforating machine operator for medications to be adjusted as needed. Patient was seen and examined prior to discharge. He had no active complaints. He had an uneventful night and felt well. Review of systems otherwise negative. Labs and vitals reviewed. Home medication reviewed and reconciled. O/E: Const alert, oriented x3 and no apparent distress General Appearance: cooperative HEENT normocephalic, head/scalp atraumatic, hearing grossly normal bilaterally and moist oral mucous membranes Eyes PERRL, EOMs intact bilaterally and conjunctivae normal Neck no lymphadenopathy, supple and no JVD Resp normal respiratory effort and clear to auscultation bilaterally Cardio regular rate, regular rhythm, S1 normal heart sound, S2 normal heart sound and no murmurs GI normal to inspection, nondistended, normoactive bowel sounds and soft to palpation right groin hernia reduced Extremity normal to inspection, full ROM and no clubbing, cyanosis, 1+ bipedal pitting edema Skin no rashes or lesions noted Neuro oriented x3, CN's II-XII intact bilaterally and moves all extremities Sensorium / Orientation: awake and alert Psych affect normal Plan is for discharge home today. Rest as per JIA Mckeon's notes which I reviewed and endorsed. Total time I spent on the care of the patient today was 33 minutes with Denita Shankar spending 25 minutes making a total of 58 minutes. Visit Charges Inpatient E&M: 34510 Disch Hosp
== END 2021-09-07 13:43 | disposition home or self-care (01) | DRG 291 ==
LOC: ED 19:54 → PCU 21:00
PROVIDERS: Nurse Practitioner Family; Admitting Provider Family Medicine; Emergency Provider Emergency Medicine; PCP Family Medicine Geriatric Medicine; Visit Provider Student in an Organized Health Care Education/Training Program
DX: I13.0 Hypertensive heart and chronic kidney disease with heart failure and stage 1 through stage 4 chronic kidney disease, or unspecified chronic kidney disease (principal); I50.23 Acute on chronic systolic (congestive) heart failure; E87.1 Hypo-osmolality and hyponatremia; N39.0 Urinary tract infection, site not specified; D69.6 Thrombocytopenia, unspecified; Z79.01 Long term (current) use of anticoagulants; I48.0 Paroxysmal atrial fibrillation; J44.9 Chronic obstructive pulmonary disease, unspecified; N18.32 Chronic kidney disease, stage 3b; E78.5 Hyperlipidemia, unspecified; D53.9 Nutritional anemia, unspecified; I25.10 Atherosclerotic heart disease of native coronary artery without angina pectoris; K21.9 Gastro-esophageal reflux disease without esophagitis; I25.5 Ischemic cardiomyopathy; I44.7 Left bundle-branch block, unspecified; F41.9 Anxiety disorder, unspecified; K40.90 Unilateral inguinal hernia, without obstruction or gangrene, not specified as recurrent; Z86.74 Personal history of sudden cardiac arrest; Z95.1 Presence of aortocoronary bypass graft; Z86.73 Personal history of transient ischemic attack (TIA), and cerebral infarction without residual deficits; Z86.711 Personal history of pulmonary embolism; N40.0 Benign prostatic hyperplasia without lower urinary tract symptoms; F32.A Depression, unspecified; Z87.19 Personal history of other diseases of the digestive system; Z87.891 Personal history of nicotine dependence; Z79.899 Other long term (current) drug therapy
CPT/HCPCS: 36415; 70450; 71045; 76770; 80048; 80053; 80061; 82550; 82570; 82962; 83735; 83874; 83880; 83935; 84300; 84443; 84484; 85025; 87086; 87088; 87186; 93005; 93306; 94640; 97162; 97166; 99283; Q9957; A4216; C8929; J1940

== ENCOUNTER → 2021-09-04 | Outpatient (CLI) | payer MEDICARE, SELFPAY ==
[2021-09-04 16:39] LABS: Absolute Lymphocyte Count 1.01 X10^3/uL (0.83-4.51); Absolute Neutrophil Count 3.2 X10^3/uL (2.0-7.7); Basophil# 0.01 X10^3/uL; Basophil% 0.2 % (0-1); Eosinophil# 0.11 X10^3/uL; Eosinophils% 2.3 % (0-5); Hematocrit 26.1 % (40-54); Hemoglobin 8.9 g/dL (13.0-16.5); Lymphocyte # 1.01 X10^3/ul (0.83-4.51); Mean Corp Hgb Conc 34.1 g/dL (32-36); Mean Corpuscular Hgb 33.5 pg (27.0-32.0); Mean Corpuscular Volume 98.1 fL (80-94); Mean Platelet Vol. 9.8 fl (6.2-12.0); Monocyte# 0.44 X10^3/uL; Monocyte% 9.2 % (0-10); NRBC Flagged by Analyzer 0 % (0-5); Neutrophil % 66.7 % (47-70); Platelet Count 112 K/mm3 (150-450); RBC Distribution Width CV 16.3 % (11.6-14.6); RBC Distribution Width SD 58.4 fl (35.1-43.9); Red Blood Count 2.66 M/mm3 (4.6-6.2); White Blood Count 4.8 K/mm3 (4.4-11.0)
[2021-09-04 19:07] LABS: AST(SGOT) 21 U/L (15-37); Alanine Aminotransfer ALT/SGPT 16 U/L (16-61); Albumin, Serum 3.3 g/dL (3.2-5.0); Alkaline Phosphatase 80 U/L (45-117); Anion Gap 12 (5-15); BUN 22 mg/dL (7-18); CPK Total, Creatine Kinase 167 U/L (39-308); Calcium,Total 8.7 mg/dL (8.5-10.1); Chloride 86 mmol/L (98-107); EST Glomerular Filtration Rate 68 mL/min (>60); Est Glom Filt Rate - Afr Amer 83 mL/min (>60); Globulin 3.4 g/dL (2.2-4.2); Glucose 97 mg/dL (74-106); Potassium 4.8 mmol/L (3.5-5.1); Protein, Total 6.7 g/dL (6.4-8.2); Sodium Level 119 mmol/L (136-145); Troponin-I HS 20 pg/mL (3.0-78.0)
[2021-09-05 14:11] LABS: BNP,B-Type NATRIURETIC PEPTIDE > 5000.0 pg/mL (0-100)
[2021-09-06 10:28] LABS: Myoglobin, Serum 140 ng/mL (28-72)
== END | disposition home or self-care (01) ==
LOC: POLAB3 16:16
PROVIDERS: PCP Family Medicine Geriatric Medicine; Visit Provider Family Medicine Geriatric Medicine
CPT/HCPCS: 36415; 80053; 82550; 83874; 83880; 84484; 85025; 87086

== ENCOUNTER → 2021-09-09 | Outpatient (CLI) | payer MEDICARE, MEDICAID, SELFPAY ==
--- NOTE | 2021-09-09 15:07 | VDLE_ITS ---
Reason For Study: Localized edema RIGHT LEFT CFV is compressible, spontaneous, competent CFV is compressible, spontaneous, competent, and demonstrates pulsatile venous flow. and demonstrates pulsatile venous flow. Procedure FV is compressible, spontaneous, competent This is a venous duplex using B-mode, color and demonstrates pulsatile venous flow. flow and spectral Doppler. POP V is compressible, spontaneous, competent Exam performed in department. and demonstrates pulsatile venous flow. A preliminary report was called and/or faxed T/P Trunk is compressible. to [facility]. PTV is compressible. LT PerV is compressible. GSV was previously harvested. VL/Venous Duplex US, Unilateral Interpretation Summary Deep veins of the left lower extremity are patent and compressible segmentally. There is no evidence of left lower extremity deep vein thrombosis. The saphenous vein is absent, pre viously harvested Ordering Physician: Jaden Farmer Referring Physician: Jaden Farmer Chi Performed By: Taina Richardson RVT
== END | disposition home or self-care (01) ==
PROVIDERS: PCP Family Medicine Geriatric Medicine; Visit Provider Family Medicine Geriatric Medicine
DX: R60.0 Localized edema (principal)
CPT/HCPCS: 36415; 80048; 93971

== ENCOUNTER → 2021-09-09 | Outpatient (CLI) | payer MEDICARE, MEDICAID, SELFPAY ==
[2021-09-09 16:25] LABS: Anion Gap 7 (5-15); BUN 30 mg/dL (7-18); BUN/Creat Ratio 26.3 RATIO (10-20); Calcium,Total 8.7 mg/dL (8.5-10.1); Chloride 95 mmol/L (98-107); Creatinine, Serum 1.14 mg/dL (0.70-1.30); EST Glomerular Filtration Rate 66 mL/min (>60); Est Glom Filt Rate - Afr Amer 79 mL/min (>60); Glucose 104 mg/dL (74-106); Potassium 4.3 mmol/L (3.5-5.1); Sodium Level 127 mmol/L (136-145)
== END | disposition home or self-care (01) ==
LOC: POLAB3 14:21
PROVIDERS: PCP Family Medicine Geriatric Medicine; Visit Provider Family Medicine Geriatric Medicine
DX: N18.30 Chronic kidney disease, stage 3 unspecified (principal)
CPT/HCPCS: 36415; 80048

== ENCOUNTER → 2021-09-23 | Outpatient (CLI) | payer MEDICARE, MEDICAID, SELFPAY ==
[2021-09-23 15:28] LABS: Absolute Lymphocyte Count 0.63 X10^3/uL (0.83-4.51); Absolute Neutrophil Count 1.7 X10^3/uL (2.0-7.7); Basophil# 0.01 X10^3/uL; Basophil% 0.4 % (0-1); Eosinophil# 0.03 X10^3/uL; Eosinophils% 1.2 % (0-5); Hematocrit 23.9 % (40-54); Hemoglobin 7.6 g/dL (13.0-16.5); Lymphocyte # 0.63 X10^3/ul (0.83-4.51); Lymphocyte % 24.3 % (19-41); Mean Corp Hgb Conc 31.8 g/dL (32-36); Mean Corpuscular Volume 103.9 fL (80-94); Mean Platelet Vol. 9.9 fl (6.2-12.0); Monocyte# 0.21 X10^3/uL; Monocyte% 8.1 % (0-10); NRBC Flagged by Analyzer 0 % (0-5); Neutrophil # 1.69 X10^3/uL (2.7-7.7); Neutrophil % 65.2 % (47-70); POSITIVE MORPHOLOGY YES; Platelet Count 126 K/mm3 (150-450); RBC Distribution Width CV 17.2 % (11.6-14.6); RBC Distribution Width SD 65.3 fl (35.1-43.9); White Blood Count 2.6 K/mm3 (4.4-11.0)
[2021-09-23 15:33] LABS: Differential Indicated SCAN CRITERIA MET
[2021-09-23 15:58] LABS: Anisocytosis 1+; Macrocytosis 1+; Platelet Estimate SLT DEC (ADEQ); Red Cell Morphology N CHROM NORMAL (NORM C&C)
[2021-09-23 16:16] LABS: Anion Gap 9 (5-15); BUN 34 mg/dL (7-18); BUN/Creat Ratio 25.2 RATIO (10-20); Calcium,Total 8.4 mg/dL (8.5-10.1); Chloride 103 mmol/L (98-107); Creatinine, Serum 1.35 mg/dL (0.70-1.30); EST Glomerular Filtration Rate 54 mL/min (>60); Est Glom Filt Rate - Afr Amer 65 mL/min (>60); Glucose 97 mg/dL (74-106); Sodium Level 137 mmol/L (136-145)
[2021-09-23 23:17] LABS: BNP,B-Type NATRIURETIC PEPTIDE > 5000.0 pg/mL (0-100)
== END | disposition home or self-care (01) ==
LOC: LAB 14:35
PROVIDERS: PCP Family Medicine Geriatric Medicine; Visit Provider Nurse Practitioner Family
DX: D50.9 Iron deficiency anemia, unspecified (principal); I50.22 Chronic systolic (congestive) heart failure; I11.0 Hypertensive heart disease with heart failure; I48.0 Paroxysmal atrial fibrillation; I25.10 Atherosclerotic heart disease of native coronary artery without angina pectoris; I25.5 Ischemic cardiomyopathy; I44.7 Left bundle-branch block, unspecified; E78.5 Hyperlipidemia, unspecified
CPT/HCPCS: 36415; 80048; 83880; 85025

== ENCOUNTER → 2021-12-18 | Outpatient (CLI) | payer MEDICARE, MEDICAID, SELFPAY ==
[2021-12-18 17:53] LABS: Anion Gap 6 (5-15); BUN 22 mg/dL (7-18); BUN/Creat Ratio 22.5 RATIO (10-20); Calcium,Total 9.3 mg/dL (8.5-10.1); Chloride 104 mmol/L (98-107); Creatinine, Serum 0.98 mg/dL (0.70-1.30); EST Glomerular Filtration Rate 78 mL/min (>60); Est Glom Filt Rate - Afr Amer 95 mL/min (>60); Glucose 97 mg/dL (74-106); Potassium 4.8 mmol/L (3.5-5.1); Sodium Level 136 mmol/L (136-145)
== END | disposition home or self-care (01) ==
LOC: POLAB3 16:14
PROVIDERS: PCP Family Medicine Geriatric Medicine; Visit Provider Family Medicine Geriatric Medicine
DX: E87.6 Hypokalemia (principal)
CPT/HCPCS: 36415; 80048

== ENCOUNTER 2022-01-06 13:29 | Outpatient (CLI) | payer MEDICARE, MEDICAID, SELFPAY ==
[2022-01-06 14:55] LABS: Albumin, Serum 3.5 g/dL (3.2-5.0); BUN 24 mg/dL (7-18); BUN/Creat Ratio 27.3 RATIO (10-20); Calcium,Total 9.2 mg/dL (8.5-10.1); Chloride 99 mmol/L (98-107); Creatinine, Serum 0.88 mg/dL (0.70-1.30); EST Glomerular Filtration Rate 88 mL/min (>60); Est Glom Filt Rate - Afr Amer 107 mL/min (>60); Glucose 99 mg/dL (74-106); Phosphorus 3.6 mg/dL (2.5-4.9); Potassium 4.5 mmol/L (3.5-5.1); Sodium Level 132 mmol/L (136-145)
== END 2022-01-06 23:59 | disposition home or self-care (01) ==
LOC: POLAB3 13:34
PROVIDERS: PCP Family Medicine Geriatric Medicine; Visit Provider Internal Medicine Nephrology
DX: N17.9 Acute kidney failure, unspecified (principal)
CPT/HCPCS: 36415; 80069

== ENCOUNTER → 2022-02-20 | Outpatient (CLI) | payer MEDICARE, MEDICAID, SELFPAY ==
[2022-02-20 15:53] LABS: Absolute Lymphocyte Count 2.57 X10^3/uL (0.83-4.51); Absolute Neutrophil Count 2.1 X10^3/uL (2.0-7.7); Basophil# 0.02 X10^3/uL; Basophil% 0.4 % (0-1); Eosinophil# 0.13 X10^3/uL; Eosinophils% 2.5 % (0-5); Hematocrit 30.6 % (40-54); Hemoglobin 10.2 g/dL (13.0-16.5); Lymphocyte # 2.57 X10^3/ul (0.83-4.51); Lymphocyte % 48.6 % (19-41); Mean Corp Hgb Conc 33.3 g/dL (32-36); Mean Corpuscular Hgb 34.1 pg (27.0-32.0); Mean Corpuscular Volume 102.3 fL (80-94); Mean Platelet Vol. 9.1 fl (6.2-12.0); Monocyte# 0.42 X10^3/uL; Monocyte% 7.9 % (0-10); NRBC Flagged by Analyzer 0 % (0-5); Neutrophil # 2.14 X10^3/uL (2.7-7.7); Neutrophil % 40.4 % (47-70); Platelet Count 161 K/mm3 (150-450); RBC Distribution Width SD 56.2 fl (35.1-43.9); Red Blood Count 2.99 M/mm3 (4.6-6.2); White Blood Count 5.3 K/mm3 (4.4-11.0)
[2022-02-20 17:37] LABS: ALB/GLOB Ratio 0.8 RATIO (0.9-2.4); AST(SGOT) 15 U/L (15-37); Alanine Aminotransfer ALT/SGPT 18 U/L (16-61); Albumin, Serum 3.8 g/dL (3.2-5.0); Alkaline Phosphatase 79 U/L (45-117); Anion Gap 6 (5-15); BUN 99 mg/dL (7-18); BUN/Creat Ratio 37.9 RATIO (10-20); Calcium,Total 10.3 mg/dL (8.5-10.1); Chloride 112 mmol/L (98-107); Creatinine, Serum 2.61 mg/dL (0.70-1.30); EST Glomerular Filtration Rate 25 mL/min (>60); Est Glom Filt Rate - Afr Amer 31 mL/min (>60); Globulin 4.6 g/dL (2.2-4.2); Glucose 109 mg/dL (74-106); Potassium 6.1 mmol/L (3.5-5.1); Protein, Total 8.4 g/dL (6.4-8.2); Sodium Level 134 mmol/L (136-145); Thyroid Stim Hormone (TSH) 1.91 uIU/mL (0.358-3.74); Uric Acid 8.4 mg/dL (3.5-7.2)
== END | disposition home or self-care (01) ==
LOC: POLAB3 13:17
PROVIDERS: PCP Family Medicine Geriatric Medicine; Visit Provider Family Medicine Geriatric Medicine
DX: I10 Essential (primary) hypertension (principal); M10.9 Gout, unspecified; E55.9 Vitamin D deficiency, unspecified
CPT/HCPCS: 36415; 80053; 82306; 84443; 84550; 85025